=== PATIENT | male | born 1940 | race Caucasian/White ===

== ENCOUNTER → 2016-09-22 | Outpatient (CLI) | payer MEDICARE ==
--- NOTE | 2016-09-22 16:08 | XR ---
EXAMINATION TYPE: XR chest 2V DATE OF EXAM: 09/22/2016 2:52 PM HISTORY: R06.02 sob. REFERENCE: Previous study dated 05/31/2014. FINDINGS: There is scarring in the right midlung. There is apparent elevation of the right hemidiaphr agm. There is some scarring or atelectasis in the left midlung. Pleural spaces are clear. The heart i s not enlarged.. IMPRESSION: NO ACUTE INTRATHORACIC ABNORMALITY.
== END | disposition home or self-care (01) ==
LOC: RADXRMAIN 14:20
PROVIDERS: ATTEND Internal Medicine
DX: R06.02 Shortness of breath (principal)
CPT/HCPCS: 71020

== ENCOUNTER 2018-02-23 16:04 | Emergency (ER) | payer MEDICARE ==
[2018-02-23 16:30] VITALS: RESP 20; TEMP 98.6
[2018-02-23 17:19] LABS: Basophils % (A) 0 %; Eosinophils # (A) 0.2 k/uL (0-0.7); Eosinophils % (A) 3 %; HCT 40.3 % (39.0-53.0); HGB 12.8 gm/dL (13.0-17.5); Lymphocytes # (A) 1.9 k/uL (1.0-4.8); Lymphocytes % (A) 26 %; MCH 27.8 pg (25.0-35.0); MCHC 31.8 g/dL (31.0-37.0); MCV 87.5 fL (80.0-100.0); Mean Platelet Volume 6.7; Monocytes # (A) 0.4 k/uL (0-1.0); Monocytes % (A) 5 %; Neutrophils # (A) 4.7 k/uL (1.3-7.7); Neutrophils % (A) 64 %; Platelet Count 323 k/uL (150-450); RDW 14.5 % (11.5-15.5); WBC 7.4 k/uL (3.8-10.6)
--- NOTE | 2018-02-23 17:22 | ED ---
SOB HPI - General Chief Complaint: Shortness of Breath Stated Complaint: diff breathing Time Seen by Provider: 02/23/18 17:10 Source: patient Mode of arrival: ambulatory Limitations: no limitations - History of Present Illness Initial Comments: 77 years old male has history of COPD he has ongoing shortness of breath but it' s worse for the last few days he has off-and-on chest pain, no chest pain today and now shortness of breath does does get worse with exertion he denies any chest pain with deep breaths. Denies any fever chills nausea vomiting or purulent sputum - Related Data Home Medications Medication Instructions Recorded Confirmed Albuterol Inhaler [Ventolin Hfa 2 puff INHALATION RT-Q6H PRN 02/23/18 02/23/18 Inhaler] Atorvastatin [Lipitor] 10 mg PO DAILY 02/23/18 02/23/18 Ergocalciferol [Vitamin D2] 50,000 unit PO Q7D 02/23/18 02/23/18 Fluticasone/Salmeterol [Advair Hfa 1 puff INHALATION RT-BID 02/23/18 02/23/18 115-21 Mcg Inhaler] Insulin Aspart Protam & Aspart 25 unit SQ BID 02/23/18 02/23/18 [Novolog Mix 70-30 Flexpen Syrn] Levothyroxine Sodium [Synthroid] 100 mcg PO DAILY 02/23/18 02/23/18 Lisinopril [Zestril] 20 mg PO DAILY 02/23/18 02/23/18 Omeprazole 20 mg PO DAILY 02/23/18 02/23/18 Travoprost [Travatan Z 0.004%] 1 drop BOTH EYES HS 02/23/18 02/23/18 Previous Rx's Medication Instructions Recorded Azithromycin [Zithromax Tri-Nathaniel] 500 mg PO DAILY #3 tab 02/23/18 predniSONE 20 mg PO DAILY #5 tab 02/23/18 Allergies Allergy/AdvReac Type Severity Reaction Status Date / Time No Known Allergies Allergy Verified 02/23/18 17:37 Review of Systems ROS Statement: Those systems with pertinent positive or pertinent negative responses have been documented in the HPI. ROS Other: All systems not noted in ROS Statement are negative. Past Medical History Past Medical History: COPD, Diabetes Mellitus, Hyperlipidemia, Hypertension History of Any Multi-Drug Resistant Organisms: None Reported Additional Past Surgical History / Comment(s): neck surgery Past Psychological History: No Psychological Hx Reported Smoking Status: Former smoker Past Alcohol Use History: None Reported Past Drug Use History: None Reported General Exam - General Exam Comments Initial Comments: General: The patient is awake and alert, in no distress, and does not appear acutely ill. Skin: Skin is warm and dry and no rashes or lesions are noted. Eye: Pupils are equal, round and reactive to light, extra-ocular movements are intact; there is normal conjunctiva bilaterally. Ears, nose, mouth and throat: There are moist mucous membranes and no oral lesions. Neck: The neck is supple, there is no tenderness or JVD. Cardiovascular: There is a regular rate and rhythm. No murmur, rub or gallop is appreciated. Respiratory: To auscultation bilateral, some is consistent with a moderate COPD Gastrointestinal: Soft, non-distended, non-tender abdomen without masses or organomegaly noted. There is no rebound or guarding present. Bowel sounds are unremarkable. Back: There is no tenderness to palpation in the midline. There is no obvious deformity. Musculoskeletal: Normal ROM, no tenderness, There is no pedal edema. There is no calf tenderness or swelling. No cords were appreciated. Neurological: CN II-XII intact, Cranial nerves III through XII are intact. There are no obvious motor or sensory deficits. Coordination appears grossly intact. Speech is normal. Psychiatric: Cooperative, appropriate mood & affect, normal judgment. Limitations: no limitations Course Vital Signs 02/23/18 16:26 Temperature 98.6 F Pulse Rate 74 Respiratory 20 Rate Blood Pressure 187/71 O2 Sat by Pulse 98 Oximetry EKG is normal sinus rhythm ventricular rate is 69 UT interval is 194 QRS duration is 96 QT/QTc is 370/396 review of this EKG reveals some T-wave inversion in lead [address] elevation or ST depression noticed in the other leads Upon reassessment noticed chest x-rays normal, troponin, CBC, comp his metabolic panel are fine. He see Dr. Portillo within last few weeks he had EKG done according to the patient he had an echocardiogram done. Considering his COPD he be referred to animal technician and a been gone home with a diagnosis of bronchitis a Z-Nathaniel plus prednisone 20 mg once daily for next [address] Murguia he agrees with my plan Medical Decision Making - Lab Data Result diagrams: 02/23/18 17:07 02/23/18 17:07 Lab Results 02/23/18 02/23/18 02/23/18 Range/Units 17:07 17:07 17:07 WBC 7.4 (3.8-10.6) k/uL RBC 4.60 (4.30-5.90) m/uL Hgb 12.8 L (13.0-17.5) gm/dL Hct 40.3 (39.0-53.0) % MCV 87.5 (80.0-100.0) fL MCH 27.8 (25.0-35.0) pg MCHC 31.8 (31.0-37.0) g/dL RDW 14.5 (11.5-15.5) % Plt Count 323 (150-450) k/uL Neutrophils % 64 % Lymphocytes % 26 % Monocytes % 5 % Eosinophils % 3 % Basophils % 0 % Neutrophils # 4.7 (1.3-7.7) k/uL Lymphocytes # 1.9 (1.0-4.8) k/uL Monocytes # 0.4 (0-1.0) k/uL Eosinophils # 0.2 (0-0.7) k/uL Basophils # 0.0 (0-0.2) k/uL PT (9.0-12.0) sec INR (<1.2) APTT (22.0-30.0) sec Sodium 140 (137-145) mmol/L Potassium 4.9 (3.5-5.1) mmol/L Chloride 107 (98-107) mmol/L Carbon Dioxide 23 (22-30) mmol/L Anion Gap 10 mmol/L BUN 23 H (9-20) mg/dL Creatinine 1.04 (0.66-1.25) mg/dL Est GFR (CKD-EPI)AfAm 81 (>60 ml/min/1.73 sqM) Est GFR (CKD-EPI)NonAf 70 (>60 ml/min/1.73 sqM) Glucose 108 H (74-99) mg/dL Calcium 9.2 (8.4-10.2) mg/dL Total Bilirubin 0.4 (0.2-1.3) mg/dL AST 37 (17-59) U/L ALT 38 (21-72) U/L Alkaline Phosphatase 76 (38-126) U/L Total Creatine Kinase 95 (55-170) U/L CK-MB (CK-2) 1.1 (0.0-2.4) ng/mL CK-MB (CK-2) Rel Index 1.2 Troponin I <0.012 (0.000-0.034) ng/mL Total Protein 7.9 (6.3-8.2) g/dL Albumin 3.9 (3.5-5.0) g/dL 02/23/18 Range/Units 17:07 WBC (3.8-10.6) k/uL RBC (4.30-5.90) m/uL Hgb (13.0-17.5) gm/dL Hct (39.0-53.0) % MCV (80.0-100.0) fL MCH (25.0-35.0) pg MCHC (31.0-37.0) g/dL RDW (11.5-15.5) % Plt Count (150-450) k/uL Neutrophils % % Lymphocytes % % Monocytes % % Eosinophils % % Basophils % % Neutrophils # (1.3-7.7) k/uL Lymphocytes # (1.0-4.8) k/uL Monocytes # (0-1.0) k/uL Eosinophils # (0-0.7) k/uL Basophils # (0-0.2) k/uL PT 10.7 (9.0-12.0) sec INR 1.1 (<1.2) APTT 26.2 (22.0-30.0) sec Sodium (137-145) mmol/L Potassium (3.5-5.1) mmol/L Chloride (98-107) mmol/L Carbon Dioxide (22-30) mmol/L Anion Gap mmol/L BUN (9-20) mg/dL Creatinine (0.66-1.25) mg/dL Est GFR (CKD-EPI)AfAm (>60 ml/min/1.73 sqM) Est GFR (CKD-EPI)NonAf (>60 ml/min/1.73 sqM) Glucose (74-99) mg/dL Calcium (8.4-10.2) mg/dL Total Bilirubin (0.2-1.3) mg/dL AST (17-59) U/L ALT (21-72) U/L Alkaline Phosphatase (38-126) U/L Total Creatine Kinase (55-170) U/L CK-MB (CK-2) (0.0-2.4) ng/mL CK-MB (CK-2) Rel Index Troponin I (0.000-0.034) ng/mL Total Protein (6.3-8.2) g/dL Albumin (3.5-5.0) g/dL Disposition Clinical Impression: Shortness of breath Disposition: HOME SELF-CARE Condition: Good Instructions: Acute Bronchitis (ED) Prescriptions: Azithromycin [Zithromax Tri-Nathaniel] 500 mg PO DAILY #3 tab predniSONE 20 mg PO DAILY #5 tab Is patient prescribed a controlled substance at d/c from ED?: No Referrals: Steve Murguia MD [Primary Care Provider] - 1-2 days Joseph Roberto MD [STAFF PHYSICIAN] - 1-2 days
[2018-02-23 17:27] LABS: INR 1.1 (<1.2); Partial Thromboplastin Time 26.2 sec (22.0-30.0); Prothrombin Time 10.7 sec (9.0-12.0)
[2018-02-23 17:32] LABS: Albumin 3.9 g/dL (3.5-5.0); Calcium 9.2 mg/dL (8.4-10.2); Potassium 4.9 mmol/L (3.5-5.1); Total Bilirubin 0.4 mg/dL (0.2-1.3); Total Protein 7.9 g/dL (6.3-8.2)
[2018-02-23 17:40] LABS: Creatine Kinase 95 U/L (55-170)
[2018-02-23 17:54] LABS: Creatine Kinase MB 1.1 ng/mL (0.0-2.4); Troponin I <0.012 ng/mL (0.000-0.034)
--- NOTE | 2018-02-23 18:05 | XR ---
EXAMINATION TYPE: XR chest 2V DATE OF EXAM: 02/23/2018 COMPARISON: 09/22/2016 HISTORY: Short of breath TECHNIQUE: Frontal and lateral views of the chest are obtained. FINDINGS: There is mild elevated right diaphragm. There is interposition of the hepatic flexure of t he colon. There is no heart failure nor confluent pneumonic infiltrate. Heart size is normal. Bony th orax is intact. IMPRESSION: No active cardiopulmonary disease. No change.
[2018-02-23 20:09] VITALS: BP 160/70; PULSE 77
== END 2018-02-23 19:45 | disposition home or self-care (01) ==
LOC: EC 16:04
DX: R06.02 Shortness of breath (principal); J44.9 Chronic obstructive pulmonary disease, unspecified; E11.9 Type 2 diabetes mellitus without complications; I10 Essential (primary) hypertension; Z79.4 Long term (current) use of insulin; Z79.899 Other long term (current) drug therapy; Z87.891 Personal history of nicotine dependence
CPT/HCPCS: 36415; 71046; 80053; 82550; 82553; 84484; 85025; 85610; 85730; 93005; 99285

== ENCOUNTER → 2018-03-10 | Outpatient (CLI) | payer MEDICARE ==
[2018-03-13 14:16] LABS: Alt. alternata IgE Class CLASS 0; Alternaria alternata IgE <0.35 kU/L (<0.35); Asperg. fumagatus IgE <0.35 kU/L (<0.35); Asperg. fumagatus IgE Class CLASS 0; Bermuda Grass IgE <0.35 kU/L (<0.35); Birch(Com.Silvr) IgE <0.35 kU/L (<0.35); Birch(Com.Silvr) IgE Class CLASS 0; Cat Epith & Dander IgE <0.35 kU/L (<0.35); Cat Epith & Dander IgE Class CLASS 0; Clad herbarum IgE <0.35 kU/L (<0.35); Cottonwood IgE <0.35 kU/L (<0.35); Dermato. Pteronyssinus IgE <0.35 kU/L (<0.35); Dermato. farinae IgE <0.35 kU/L (<0.35); Dermato. farinae IgE Class CLASS 0; Dog Dander IgE <0.35 kU/L (<0.35); Elm IgE <0.35 kU/L (<0.35); Maple (Box Elder) IgE <0.35 kU/L (<0.35); Maple (Box Elder) IgE Class CLASS 0; Mountain Cedar IgE <0.35 kU/L (<0.35); Mountain Cedar IgE Class CLASS 0; Mouse Urine IgE Class CLASS 0; Nettle IgE <0.35 kU/L (<0.35); Nettle IgE Class CLASS 0; Oak IgE <0.35 kU/L (<0.35); Penicillium notatum IgE Class CLASS 0; Rough Marshelder IgE <0.35 kU/L (<0.35); Rough Marshelder IgE Class CLASS 0; Timothy Grass IgE <0.35 kU/L (<0.35); White Ash IgE Class CLASS 0
[2018-03-15 16:23] LABS: Alternaria Alternata IgG 4.3 mcg/mL (< 13.6); Aspergillus fumigatus IgG Not detected (Not detected); Aureobasidium pullulans IgG 6.1 mcg/mL (< 13.6); Cladosporium herbarium IgG 27.7 mcg/mL (< 14.7); Phoma ssp. IgG 9.5 mcg/mL (< 6.6); Saccaharomospora viridis Not detected (Not detected); Saccaharopoly. rectivirgula Not detected (Not detected)
== END ==
LOC: LABWHC1 12:34
PROVIDERS: ATTEND Internal Medicine Sleep Medicine
DX: B44.81 Allergic bronchopulmonary aspergillosis (principal)
CPT/HCPCS: 36415; 82785; 86001; 86003; 86606; 86609

== ENCOUNTER → 2018-03-17 | Outpatient (CLI) | payer MEDICARE ==
--- NOTE | 2018-03-17 16:37 | CT ---
EXAMINATION TYPE: CT chest wo con DATE OF EXAM: 03/17/2018 COMPARISON: NONE HISTORY: SOB, interstitial lung disease per order. CT DLP: 602 mGycm. Automated Exposure Control for Dose Reduction was Utilized. TECHNIQUE: CT scan of the thorax is performed without IV contrast. FINDINGS: LUNGS: There is calcified pleural plaque and pleural thickening anteriorly right mid to lower lung fr om axial images 29 through 38 there are additional noncalcified pleural plaques seen bilaterally most prominent posteriorly there is bibasilar linear scarring and/or atelectasis most prominent just abov e the diaphragms. Elevated right hemidiaphragm is seen. Few scattered micronodules are present. No terry spicious greater than 5 mm parenchymal nodule or mass is present bilaterally. No suspicious focal con solidation is seen. MEDIASTINUM: Lack of IV contrast is noted to limit evaluation for mediastinal and especially hilar ad enopathy. There are no definitive greater than 1 cm hilar or mediastinal lymph nodes. There are promi nent but subcentimeter thoracic lymph nodes. No cardiomegaly or pericardial effusion is seen. Coron papa artery calcification is present which is noted marker for coronary artery disease. There is mild to moderate calcified plaque in the aorta extending into branch vessels OTHER: Small degree of bilateral gynecomastia is identified. There is mild multilevel spurring in the thoracic spine. A few simple appearing cysts are scattered throughout both kidneys. IMPRESSION: Chronic parenchymal and pleural changes. Correlate for prior asbestos exposure. Parenchym al changes most prominent in the bases. No acute pulmonary process.
== END | disposition home or self-care (01) ==
LOC: RADCTMAIN 16:07
PROVIDERS: ATTEND Internal Medicine Sleep Medicine
DX: J98.4 Other disorders of lung (principal); J84.9 Interstitial pulmonary disease, unspecified
CPT/HCPCS: 71250

== ENCOUNTER → 2018-03-30 | Outpatient (CLI) | payer MEDICARE | END | disposition home or self-care (01) | LOC: LABWHC1 12:43 | PROVIDERS: ATTEND Internal Medicine Sleep Medicine | DX: Z01.89 Encounter for other specified special examinations (principal) | CPT/HCPCS: 36415 ==

== ENCOUNTER → 2022-03-15 | Outpatient (CLI) | payer MEDICARE ==
--- NOTE | 2022-03-15 18:55 | US ---
EXAMINATION TYPE: US thyroid st tissue head/neck DATE OF EXAM: 03/15/2022 COMPARISON: NONE CLINICAL HISTORY: 81-year-old male E07.9 DISORDER OF THYROID, UNSPECIFIED. GLAND SIZE: Right Lobe: 4.1 x 2.9 x 2.6 cm Overall Parenchyma: homogenous Left Lobe: 2.5 x 1.3 x x 1.1 cm Overall Parenchyma: homogeneous Isthmus Thickness: 1.2 cm NODULES RIGHT: # of nodules measured on right: 1 1. 2.8 X 2.5 x 1.9 cm, mid, cystic or almost completely cystic, anechoic nodule, which is as wide a s it is tall, with smooth margins, without echogenic foci. Some minimal peripheral mural nodularity i s noted measuring up to 8 mm. No prior LEFT: # of nodules measured on left: 0 ISTHMUS: # of nodules measured in the isthmus: 0 Bilateral neck scanned, no evidence of lymphadenopathy. IMPRESSION: Predominantly cystic nodule measuring 2.8 cm within the right thyroid lobe shows an 8 mm area of inte rnal mural-based nodularity. Consider a 6-12 month follow-up to reassess.
== END | disposition home or self-care (01) ==
LOC: RADUSWWP 14:56
PROVIDERS: ATTEND Internal Medicine Interventional Cardiology
DX: E04.1 Nontoxic single thyroid nodule (principal)
CPT/HCPCS: 76536

== ENCOUNTER → 2023-03-09 | Outpatient (CLI) | payer MEDICARE ==
--- NOTE | 2023-03-10 08:16 | MR ---
EXAMINATION TYPE: MR brain wo/w con DATE OF EXAM: 03/09/2023 COMPARISON: None HISTORY: Memory loss CONTRAST: Performed utilizing 9 mL intravenous Gadavist gadolinium contrast. TECHNIQUE: Multiplanar, multiecho imaging on a 3.0 Anaid magnet is performed through the brain. Stud y is performed within 24 hours of arrival to the hospital. The craniovertebral junction is normal. The pituitary is normal. Diffusion-weighted imaging is performed. No abnormal hyperintensity is present to suggest an acute i ntracranial infarct or acute ischemic change. There are scattered punctate areas of hyperintensity on T2 and Inversion Recovery weighted sequences which are non-specific but can be related to microvascular ischemic changes. Some of these are perpen dicular to the lateral ventricles. This raises the possibility of multiple sclerosis. Differential di agnosis could also include Lyme disease and vasculitis. Ventricles and sulci are prominent for the patient age. Following contrast administration, no abnormal enhancement. IMPRESSION: 1. Chronic appearing periventricular white matter ischemic type changes with age related atrophy.
== END | disposition home or self-care (01) ==
LOC: RADMRIMAIN 20:00
PROVIDERS: ATTEND Internal Medicine
DX: I67.82 Cerebral ischemia (principal); R41.0 Disorientation, unspecified; G31.9 Degenerative disease of nervous system, unspecified
CPT/HCPCS: 70553; A9585

== ENCOUNTER 2024-06-15 02:33 | Inpatient (IN) | payer MEDICARE ==
[2024-06-15] MEDS: SODIUM CHLORIDE 0.9% 1,000 ML IV STA (02:40)
[2024-06-15 02:41] VITALS: TEMP 97.7
[2024-06-15] MEDS: LORazepam 2 MG/ML INJ IV STA ×2 (02:47→04:37)
[2024-06-15 02:48] LABS: Glucose,Whole Blood >600 mg/dL (70-110)
[2024-06-15 02:59] LABS: Basophils % (A) 0 %; Eosinophils % (A) 0 %; HCT 49.2 % (39.0-53.0); HGB 14.9 gm/dL (13.0-17.5); Hypochromasia Moderate; Lymphocytes # (A) 1.3 k/uL (1.0-4.8); Lymphocytes % (A) 9 %; MCH 30.7 pg (25.0-35.0); MCHC 30.2 g/dL (31.0-37.0); MCV 101.5 fL (80.0-100.0); Macrocytosis Slight; Mean Platelet Volume 8.6; Monocytes # (A) 0.8 k/uL (0-1.0); Monocytes % (A) 5 %; Neutrophils # (A) 12.7 k/uL (1.3-7.7); Neutrophils % (A) 85 %; Platelet Count 181 k/uL (150-450); RBC 4.85 m/uL (4.30-5.90); RDW 13.3 % (11.5-15.5); WBC 14.9 k/uL (3.8-10.6)
--- NOTE | 2024-06-15 03:07 | ED ---
Fall HPI - General Chief Complaint: Fall Stated Complaint: Fall Time Seen by Provider: 06/15/24 02:36 Source: patient, EMS - History of Present Illness Initial Comments: Bill is an 83-year-old gentleman with a history of dementia who is brought to the ER by EMS after apparent falls at home. History was initially obtained from EMS and then further history provided by the patient's grandson's girlfriend who lives at the home with the patient. Patient lives in the home and his grandson is in the as well as his girlfriend Ana and their children live in an upstairs apartment, Ana sees the patient regularly and brings in his meals. She states that he seemed to be doing okay yesterday she went down to bring him dinner around 5 PM and he had a fall in the kitchen she thought perhaps his sugar was getting low so she fed him some cookies he then ate dinner and went to bed. Around 630 he woke up and was given off balance and feeling unwell. He apparently had another fall at some time during the night it was unwitnessed and EMS was called due to the patient's symptoms. Upon EMS arrival patient had weakness in the left arm which Ana reports is chronic. Patient was pleasantly confused and offered no meaningful history. Per Ana the patient is usually alert and oriented to person place and time. - Related Data Home Medications Medication Instructions Recorded Confirmed Albuterol Inhaler [Ventolin Hfa 2 puff INHALATION RT-Q6H PRN 02/23/18 02/23/18 Inhaler] Atorvastatin [Lipitor] 10 mg PO DAILY 02/23/18 02/23/18 Ergocalciferol [Vitamin D2] 50,000 unit PO Q7D 02/23/18 02/23/18 Fluticasone Propion/Salmeterol 1 puff INHALATION RT-BID 02/23/18 02/23/18 [Advair Hfa 115-21 Mcg Inhaler] Insulin Aspart Prot/Insuln Asp 25 unit SQ BID 02/23/18 02/23/18 [Novolog Mix 70-30 Flexpen Syrn] Levothyroxine Sodium [Synthroid] 100 mcg PO DAILY 02/23/18 02/23/18 Omeprazole 20 mg PO DAILY 02/23/18 02/23/18 Travoprost [Travatan Z 0.004%] 1 drop BOTH EYES HS 02/23/18 02/23/18 lisinopriL [Zestril] 20 mg PO DAILY 02/23/18 02/23/18 Previous Rx's Medication Instructions Recorded Azithromycin [Zithromax Tri-Nathaniel] 500 mg PO DAILY #3 tab 02/23/18 predniSONE [Deltasone] 20 mg PO DAILY #5 tab 02/23/18 Allergies Allergy/AdvReac Type Severity Reaction Status Date / Time No Known Allergies Allergy Verified 02/23/18 17:37 Review of Systems ROS Statement: Those systems with pertinent positive or pertinent negative responses have been documented in the HPI. ROS Other: All systems not noted in ROS Statement are negative. Past Medical History Past Medical History: COPD, Diabetes Mellitus, Hyperlipidemia, Hypertension History of Any Multi-Drug Resistant Organisms: None Reported Additional Past Surgical History / Comment(s): neck surgery Past Psychological History: No Psychological Hx Reported Past Alcohol Use History: None Reported Past Drug Use History: None Reported General Exam - General Exam Comments Initial Comments: Physical Exam GENERAL: Chronically ill-appearing, HENT: Hematoma lateral to the left eye, superficial abrasion over the cheek EYES: PERRL, EOMI PULMONARY: Unlabored respirations. CARDIOVASCULAR: RRR Warm and well perfused extremities ABDOMEN: Non-distended SKIN: Abrasion to left arm : Deferred NEUROLOGIC: Alert and oriented to person MUSCULOSKELETAL: diffuse atrophy left arm contracted PSYCHIATRIC: Unable to assess Course Vital Signs 06/15/24 06/15/24 06/15/24 02:36 03:41 04:15 Temperature 97.7 F Pulse Rate 125 H 112 H 108 H Respiratory 22 18 Rate Blood Pressure 153/117 94/77 O2 Sat by Pulse 96 96 Oximetry 06/15/24 06/15/24 06/15/24 04:32 04:35 06:12 Temperature Pulse Rate 125 H 125 H 122 H Respiratory 18 18 Rate Blood Pressure 147/92 127/113 O2 Sat by Pulse 96 97 Oximetry 06/15/24 06/15/24 06/15/24 07:35 09:35 10:11 Temperature Pulse Rate 120 H 121 H 112 H Respiratory 22 18 20 Rate Blood Pressure 142/76 114/94 92/71 O2 Sat by Pulse 94 L 94 L 95 Oximetry 06/15/24 10:14 Temperature Pulse Rate 110 H Respiratory 20 Rate Blood Pressure 120/64 O2 Sat by Pulse 100 Oximetry Medical Decision Making - Medical Decision Making Was pt. sent in by a medical professional or institution (VANIA Lopes, DISABILITY REPRESENTATIVE, urgent care, hospital, or [place] health care facility...) When possible be specific @ -No Did you speak to anyone other than the patient for history (EMS, parent, family, police, friend...)? What history was obtained from this source @ -EMS, caregiver from the home Did you review nursing and triage notes (agree or disagree)? Why? @ -I reviewed and agree with nursing and triage notes Were old charts reviewed (outside hosp., previous admission, EMS record, old EKG, old radiological studies, urgent care reports/EKG's, [place] health care facility records)? Report findings @ -No old charts were reviewed Differential Diagnosis (chest pain, altered mental status, abdominal pain women, abdominal pain men, vaginal bleeding, weakness, fever, dyspnea, syncope, headache, dizziness, GI bleed, back pain, seizure, CVA, palpatations, mental health)? @ -Differential Altered Mental Status: Hypoglycemia, DKA, hypercapnia, ETOH, overdose, CO poisoning, trauma, myxedema coma, HTN encephalopathy, infection, encephalitis, psychosis, intercranial hemorrhage, hepatic encephalopathy, meningitis, CVA, this is not meant to be an all-inclusive list EKG interpreted by me (3pts min.). @ -As above X-rays interpreted by me (1pt min.). @ -None done CT interpreted by me (1pt min.). @ -No mass, no midline shift, edema concerning for acute infarction in the right U/S interpreted by me (1pt. min.). @ -None done What testing was considered but not performed or refused? (CT, X-rays, U/S, labs)? Why? @ -MRI can be obtained inpatient What meds were considered but not given or refused? Why? @ -tPA contraindicated due to unknown onset, Did you discuss the management of the patient with other professionals (professionals i.e. VANIA Lopes, DISABILITY REPRESENTATIVE, lab, RT, psych nurse, director social, sales engineer account manager, teacher, public records officer, director of casework services)? Give summary @ -Discussed with stroke doctor Dr. Suazo recommended medical management Was smoking cessation discussed for >3mins.? @ -No Was critical care preformed (if so, how long)? @ -Yes, 30 minutes Were there social determinants of health that impacted care today? How? (Homelessness, low income, unemployed, alcoholism, drug addiction, transportation, low edu. Level, literacy, decrease access to med. care, assisted, rehab)? @ -No Was there de-escalation of care discussed even if they declined (Discuss DNR or withdrawal of care, Hospice)? DNR status @ -No family available for conversation What co-morbidities impacted this encounter? (DM, HTN, Smoking, COPD, CAD, Cancer, CVA, ARF, Chemo, Hep., AIDS, mental health diagnosis, sleep apnea, morbid obesity)? @ -Dementia Was patient admitted / discharged? Hospital course, mention meds given and route, prescriptions, significant lab abnormalities, going to OR and other pertinent info. @ -Admit Patient was seen and evaluated patient is confused but awake and talking, left arm is contracted there is abrasions to the left side of his face he seems to have some left-sided hemineglect, CT scan and trauma workup were initiated CT is concerning for acute ischemia to the right side. I suspect he is having right MCA stroke. I attempted to contact the patient's son who we were advised would be coming to the hospital there was no answer on his phone. I contacted the patient's caregiver who is his grandsons girlfriend who is known him for 6 years. My concerns for stroke were discussed with the interventional stroke doctor, Dr Bliss at 5:23am, he recommended medical management. CTA was obtained and confirms right MCA occlusion. Patient was evaluated by neurology who recommend transfer to higher level of care. Patient PCP Dr Murguia agrees with plan for transfer Multiple attempts to contact patient's son, no answer, no response - Again care was discussed with caregiver, Ana who will attempt to contact son for update. After discussion with stonemason supervisor neurologist, they recommend transfer to higher level of care Patient care discussed with stroke doctor who recommends transfer to [place] Undiagnosed new problem with uncertain prognosis? @ -Yes - acute right MCA stroke Drug Therapy requiring intensive monitoring for toxicity (Heparin, Nitro, Insulin, Cardizem)? @ Yes - Insulin Were any procedures done? @ -No Diagnosis/symptom? @ -Right MCA stroke Acute, or Chronic, or Acute on Chronic? @ -Acute Uncomplicated (without systemic symptoms) or Complicated (systemic symptoms)? @ -Default Side effects of treatment? @ -No Exacerbation, Progression, or Severe Exacerbation? @ -No Poses a threat to life or bodily function? How? (Chest pain, USA, CT, pneumonia, PE, COPD, DKA, ARF, appy, cholecystitis, CVA, Diverticulitis, Homicidal, Suicidal, threat to staff... and all critical care pts) @ Potentially - Lab Data Result diagrams: 06/15/24 02:50 06/15/24 07:30 Lab Results 06/15/24 06/15/24 06/15/24 Range/Units 02:47 02:50 02:50 WBC 14.9 H (3.8-10.6) k/uL RBC 4.85 (4.30-5.90) m/uL Hgb 14.9 (13.0-17.5) gm/dL Hct 49.2 (39.0-53.0) % MCV 101.5 H (80.0-100.0) fL MCH 30.7 (25.0-35.0) pg MCHC 30.2 L (31.0-37.0) g/dL RDW 13.3 (11.5-15.5) % Plt Count 181 (150-450) k/uL MPV 8.6 Neutrophils % 85 % Lymphocytes % 9 % Monocytes % 5 % Eosinophils % 0 % Basophils % 0 % Neutrophils # 12.7 H (1.3-7.7) k/uL Lymphocytes # 1.3 (1.0-4.8) k/uL Monocytes # 0.8 (0-1.0) k/uL Eosinophils # 0.0 (0-0.7) k/uL Basophils # 0.0 (0-0.2) k/uL Hypochromasia Moderate Macrocytosis Slight PT 12.9 H (10.0-12.5) sec INR 1.2 H (<1.2) APTT 25.9 (22.0-30.0) sec Sodium (137-145) mmol/L Potassium (3.5-5.1) mmol/L Chloride (98-107) mmol/L Carbon Dioxide (22-30) mmol/L Anion Gap mmol/L BUN (9-20) mg/dL Creatinine (0.66-1.25) mg/dL Est GFR (CKD-EPI)AfAm (>60 ml/min/1.73 sqM) Est GFR (CKD-EPI)NonAf (>60 ml/min/1.73 sqM) Glucose (74-99) mg/dL POC Glucose (mg/dL) >600 H* (70-110) mg/dL POC Glu Business Development Professional HUGO Arora Lactic Ac Sepsis Rflx Plasma Lactic Acid Jose E (0.7-2.0) mmol/L Calcium (8.4-10.2) mg/dL Total Bilirubin (0.2-1.3) mg/dL AST (17-59) U/L ALT (4-49) U/L Alkaline Phosphatase (38-126) U/L Troponin I (0.000-0.034) ng/mL Total Protein (6.3-8.2) g/dL Albumin (3.5-5.0) g/dL Serum Alcohol mg/dL Blood Type Blood Type Confirm Blood Type Recheck Bld Type Recheck Status Antibody Screen Spec Expiration Date 06/15/24 06/15/24 06/15/24 Range/Units 02:50 02:50 02:50 WBC (3.8-10.6) k/uL RBC (4.30-5.90) m/uL Hgb (13.0-17.5) gm/dL Hct (39.0-53.0) % MCV (80.0-100.0) fL MCH (25.0-35.0) pg MCHC (31.0-37.0) g/dL RDW (11.5-15.5) % Plt Count (150-450) k/uL MPV Neutrophils % % Lymphocytes % % Monocytes % % Eosinophils % % Basophils % % Neutrophils # (1.3-7.7) k/uL Lymphocytes # (1.0-4.8) k/uL Monocytes # (0-1.0) k/uL Eosinophils # (0-0.7) k/uL Basophils # (0-0.2) k/uL Hypochromasia Macrocytosis PT (10.0-12.5) sec INR (<1.2) APTT (22.0-30.0) sec Sodium 123 L (137-145) mmol/L Potassium 6.9 H* (3.5-5.1) mmol/L Chloride 91 L (98-107) mmol/L Carbon Dioxide 14 L (22-30) mmol/L Anion Gap 18 mmol/L BUN 94 H (9-20) mg/dL Creatinine 1.46 H (0.66-1.25) mg/dL Est GFR (CKD-EPI)AfAm 51 (>60 ml/min/1.73 sqM) Est GFR (CKD-EPI)NonAf 45 (>60 ml/min/1.73 sqM) Glucose 1051 H* (74-99) mg/dL POC Glucose (mg/dL) (70-110) mg/dL POC Glu Business Development Professional ID Lactic Ac Sepsis Rflx Plasma Lactic Acid Jose E 8.8 H* (0.7-2.0) mmol/L Calcium 9.1 (8.4-10.2) mg/dL Total Bilirubin 0.7 (0.2-1.3) mg/dL AST 47 (17-59) U/L ALT 49 (4-49) U/L Alkaline Phosphatase 175 H (38-126) U/L Troponin I 0.018 (0.000-0.034) ng/mL Total Protein 7.8 (6.3-8.2) g/dL Albumin 4.2 (3.5-5.0) g/dL Serum Alcohol <10 mg/dL Blood Type Blood Type Confirm Blood Type Recheck Bld Type Recheck Status Antibody Screen Spec Expiration Date 06/15/24 06/15/24 06/15/24 Range/Units 02:52 02:57 03:27 WBC (3.8-10.6) k/uL RBC (4.30-5.90) m/uL Hgb (13.0-17.5) gm/dL Hct (39.0-53.0) % MCV (80.0-100.0) fL MCH (25.0-35.0) pg MCHC (31.0-37.0) g/dL RDW (11.5-15.5) % Plt Count (150-450) k/uL MPV Neutrophils % % Lymphocytes % % Monocytes % % Eosinophils % % Basophils % % Neutrophils # (1.3-7.7) k/uL Lymphocytes # (1.0-4.8) k/uL Monocytes # (0-1.0) k/uL Eosinophils # (0-0.7) k/uL Basophils # (0-0.2) k/uL Hypochromasia Macrocytosis PT (10.0-12.5) sec INR (<1.2) APTT (22.0-30.0) sec Sodium (137-145) mmol/L Potassium (3.5-5.1) mmol/L Chloride (98-107) mmol/L Carbon Dioxide (22-30) mmol/L Anion Gap mmol/L BUN (9-20) mg/dL Creatinine (0.66-1.25) mg/dL Est GFR (CKD-EPI)AfAm (>60 ml/min/1.73 sqM) Est GFR (CKD-EPI)NonAf (>60 ml/min/1.73 sqM) Glucose (74-99) mg/dL POC Glucose (mg/dL) (70-110) mg/dL POC Glu Business Development Professional ID Lactic Ac Sepsis Rflx Y Plasma Lactic Acid Jose E (0.7-2.0) mmol/L Calcium (8.4-10.2) mg/dL Total Bilirubin (0.2-1.3) mg/dL AST (17-59) U/L ALT (4-49) U/L Alkaline Phosphatase (38-126) U/L Troponin I (0.000-0.034) ng/mL Total Protein (6.3-8.2) g/dL Albumin (3.5-5.0) g/dL Serum Alcohol mg/dL Blood Type B Positive Blood Type Confirm B Positive Blood Type Recheck No Previous Record Bld Type Recheck Status CABO Indicated Antibody Screen NEGATIVE Spec Expiration Date 06/18/20242351 - EKG Data -: EKG Interpreted by Me EKG Comments: EKG obtained due to tachycardia EKG obtained at 303 rate is 112 rhythm sinus tach normal intervals CA 202, QRS [address] QTc [address] elevations or depressions are peaked T waves no evidence of acute ischemia or infarction. Critical Care Time Total Critical Care Time: 45 Disposition Clinical Impression: Acute right MCA stroke Disposition: OTHER INSTITUTION NOT DEFINED Condition: Serious
[2024-06-15 03:08] LABS: INR 1.2 (<1.2); Partial Thromboplastin Time 25.9 sec (22.0-30.0); Prothrombin Time 12.9 sec (10.0-12.5)
[2024-06-15 03:11] LABS: AST 47 U/L (17-59); African American GFR (CKD) 51 (>60 ml/min/1.73 sqM); Albumin 4.2 g/dL (3.5-5.0); Alcohol <10 mg/dL; Alkaline Phosphatase 175 U/L (38-126); Anion Gap 18 mmol/L; Blood Urea Nitrogen 94 mg/dL (9-20); Calcium 9.1 mg/dL (8.4-10.2); Carbon Dioxide 14 mmol/L (22-30); Chloride 91 mmol/L (98-107); Non-African American GFR(CKD) 45 (>60 ml/min/1.73 sqM); Sodium 123 mmol/L (137-145); Total Bilirubin 0.7 mg/dL (0.2-1.3); Total Protein 7.8 g/dL (6.3-8.2)
[2024-06-15 03:17] LABS: ALT 49 U/L (4-49)
[2024-06-15 03:29] LABS: Glucose 1051 mg/dL (74-99); Potassium 6.9 mmol/L (3.5-5.1)
[2024-06-15] MEDS: SODIUM ZIRCONIUM CYCLOSILICATE 10 GM PACKET PO ONE (03:33)
[2024-06-15] MEDS: SODIUM BICARB 8.4% 50 ML SYR (1 MEQ/ML) IV ONE (03:40)
[2024-06-15] MEDS: CALCIUM GLUCONATE IN NACL 1 GM in SALINE 1 100ML.BAG IVPB ONE (03:41)
[2024-06-15] MEDS: INSULIN REGULAR 100 UNIT/ML VIAL (IV) IV ONE (03:44)
[2024-06-15] MEDS: ALBUTEROL NEB (CONC) 2.5 MG/0.5 ML INHALATION ONE (04:09)
--- NOTE | 2024-06-15 04:22 | CT ---
EXAM: CT Head Without Intravenous Contrast CLINICAL HISTORY: ITS.REASON CT Reason: trauma altered TECHNIQUE: Axial computed tomography images of the head/brain without intravenous contrast. CTDI is 45.2 mGy and DLP is 1126 mGy-cm. This CT exam was performed using one or more of the following dose reduction techniques: automated exposure control, adjustment of the mA and/or kV according to patient size, and/or use of iterative reconstruction technique. COMPARISON: No relevant prior studies available. FINDINGS: Brain: Confluent hypodense changes are seen within the periventricular and deep white matter. Diffuse hypodense changes are seen within the cortical and white matter of the right parietal and temporal lobe. No hemorrhage. Ventricles: Unremarkable. No ventriculomegaly. Bones/joints: Unremarkable. No acute fracture. Soft tissues: Unremarkable. Sinuses: Unremarkable as visualized. No acute sinusitis. Mastoid air cells: Unremarkable as visualized. No mastoid effusion. IMPRESSION: 1. Findings highly concerning for ischemic injury to the right temporal and parietal lobe. 2. No significant midline shift. No evidence of intracranial hemorrhage. EXAM: CT Cervical Spine Without Intravenous Contrast CLINICAL HISTORY: ITS.REASON CT Reason: trauma altered TECHNIQUE: Axial computed tomography images of the cervical spine without intravenous contrast. CTDI is 19.4 mGy and DLP is 574 mGy-cm. This CT exam was performed using one or more of the following dose reduction techniques: automated exposure control, adjustment of the mA and/or kV according to patient size, and/or use of iterative reconstruction technique. COMPARISON: No relevant prior studies available. FINDINGS: Vertebrae: Mild diffuse endplate and degenerative uncovertebral hypertrophy. No acute fracture. Discs/spinal canal/neural foramina: Intervertebral disc space narrowing is seen at C3-4 and the 6 7. Soft tissues: Unremarkable. IMPRESSION: Multilevel degenerative change. No acute findings. No evidence of fracture. <MYCVCSECTION> Communications: 06/15/24 04:32 Call Doctor Regarding Stroke, called Dr. Cano on 06/15 04:32 (-05:00)
--- NOTE | 2024-06-15 04:39 | XR ---
EXAM: XR Pelvis, 1 or 2 Views CLINICAL HISTORY: ITS.REASON XR Reason: Trauma TECHNIQUE: Frontal view of the pelvis. COMPARISON: No relevant prior studies available. FINDINGS: Bones/joints: Degenerative changes are seen within the spine and hips. No acute fracture. No dislocation. Soft tissues: Unremarkable. IMPRESSION: No acute findings in the pelvis.
--- NOTE | 2024-06-15 04:40 | XR ---
EXAM: XR Chest, 1 View CLINICAL HISTORY: ITS.REASON XR Reason: trauma TECHNIQUE: Frontal view of the chest. COMPARISON: X-ray dated 02/23/2018 FINDINGS: Lungs: Unremarkable. No consolidation. Elevation of the right hemidiaphragm. Pleural space: Unremarkable. No pneumothorax. Heart: Unremarkable. No cardiomegaly. Mediastinum: Unremarkable. Normal mediastinal contour. Bones/joints: Degenerative changes are seen in the spine and shoulders. No acute fracture. Vasculature: Calcifications overlie the aorta. IMPRESSION: No acute findings in the chest.
[2024-06-15] MEDS ORDERED: DEXTROSE 50% SYRINGE 50 ML IVP PRN ×2 (06:11)
[2024-06-15] MEDS ORDERED: NALOXONE 0.4 MG/ML 1 ML VIAL IV PRN (06:16)
--- NOTE | 2024-06-15 06:57 | CT ---
EXAM: CT Angiography Head and Neck With Intravenous Contrast CLINICAL HISTORY: ITS.REASON CT Reason: Stroke on CT TECHNIQUE: [place] [facility] [place]/head and neck CT angiography protocol performed with intravenous contrast. CTDI is 11.35 mGy and DLP is 215 mGy-cm. This CT exam was performed using one or more of the following dose reduction techniques: automated exposure control, adjustment of the mA and/or kV according to patient size, and/or use of iterative reconstruction technique. MIP reconstructed images were created and reviewed. COMPARISON: None. FINDINGS: HEAD: Right anterior cerebral artery: Unremarkable. No occlusion or significant stenosis. Anterior communicating artery is present. No aneurysm. Right middle cerebral artery: Abrupt cutoff of the right middle cerebral artery inferior branch. Consider interventional consultation. No occlusion or significant stenosis. No aneurysm. Right posterior cerebral artery: Unremarkable. No occlusion or significant stenosis. No aneurysm. Right intracranial internal carotid artery: Unremarkable. No significant stenosis. No dissection or occlusion. Right intracranial vertebral artery: Unremarkable. No significant stenosis. No dissection or occlusion. Left anterior cerebral artery: Unremarkable. No occlusion or significant stenosis. No aneurysm. Left middle cerebral artery: Unremarkable. No occlusion or significant stenosis. No aneurysm. Left posterior cerebral artery: Unremarkable. No occlusion or significant stenosis. No aneurysm. Left intracranial internal carotid artery: Unremarkable. No significant stenosis. No dissection or occlusion. Left intracranial vertebral artery: Unremarkable. No significant stenosis. No dissection or occlusion. Basilar artery: Unremarkable. No occlusion or significant stenosis. No aneurysm. Other vasculature: Left posterior containing artery. NECK: Right common carotid artery: Unremarkable. No significant stenosis. No dissection or occlusion. Right extracranial internal carotid artery: Mild (42%) stenosis of the proximal right internal carotid artery caused by atherosclerotic plaque and calcifications. No dissection or occlusion. Right external carotid artery: Unremarkable. No occlusion. Right extracranial vertebral artery: Dominant right vertebral artery. No significant stenosis. No dissection or occlusion. Left common carotid artery: Unremarkable. No significant stenosis. No dissection or occlusion. Left extracranial internal carotid artery: Unremarkable. No significant stenosis. No dissection or occlusion. Left external carotid artery: Unremarkable. No occlusion. Left extracranial vertebral artery: Unremarkable. No significant stenosis. No dissection or occlusion. Lung apices: Unremarkable as visualized. HEAD and NECK: Bones/joints: Degenerative changes in the spine. No discrete lytic or blastic abnormalities. Soft tissues: Unremarkable. Other findings: Comparison made to CT head without contrast June 15, 2024. CAROTID STENOSIS REFERENCE USING NASCET CRITERIA: % ICA stenosis = (1 - narrowest ICA diameter/diameter of distal cervical ICA) x 100. Mild - <50% stenosis. Moderate - 50-69% stenosis. Severe - 70-94% stenosis. Near occlusion - 95-99% stenosis. Occluded - 100% stenosis. IMPRESSION: 1. Abrupt cutoff of the right middle cerebral artery inferior branch. Consider interventional consultation. 2. Mild (42%) stenosis of the proximal right internal carotid artery caused by atherosclerotic plaque and calcifications. 3. Otherwise, no areas of flow-limiting stenosis within the head or neck. 4. No evidence of aneurysm or dissection. 5. Right MCA territory infarction best seen on prior CT head without contrast. 6. Consider MRI. <MYCVCSECTION> Communications: 06/15/24 06:57 Call Doctor Regarding Above results, called Dr. Lizarraga on 06/15 06:56 (-05:00)
[2024-06-15] MEDS: INSULIN REGULAR 100 UNIT in SODIUM CHLORIDE 0.9% 100 ML IV SCH (06:59)
[2024-06-15] MEDS: SODIUM CHLORIDE 0.9% 1,000 ML IV SCH (07:03)
[2024-06-15 07:09] LABS: Glucose,Whole Blood >600 mg/dL (70-110)
[2024-06-15 08:01] LABS: African American GFR (CKD) 53 (>60 ml/min/1.73 sqM); Anion Gap 15 mmol/L; Carbon Dioxide 19 mmol/L (22-30); Chloride 95 mmol/L (98-107); Non-African American GFR(CKD) 46 (>60 ml/min/1.73 sqM); Potassium 5.7 mmol/L (3.5-5.1); Sodium 129 mmol/L (137-145)
--- NOTE | 2024-06-15 08:09 | P.CNNES ---
History of Present Illness Consult date: 06/15/24 Reason for Consult: Recent fall with CT angiogram of head showing cutoff of right middle cerebr Chief complaint: Patient is nonverbal at this time. History of Present Illness: Mr. Salter is an 83-year-old male of unknown handedness with a medical history of COPD, diabetes, hypertension, hyperlipidemia. The patient is on a baby aspirin as well as Lipitor 10 mg at home. Patient was seen in [facility] emergency room on June 15, 2024 at approximately 3 AM when he came in status post fall. His relative found him at approximately 5 PM yesterday. He was noted to have altered mental status and a CT of the head as well as cervical spine reveals evolving right temporal and parietal infarct with mild hypoden sity, and a CT angiogram reveals an abrupt cut off of the right middle cerebral artery M2 inferior branch. Interventional radiology was called and did not consider the patient to be an interventional candidate secondary to unknown last known normal time as well as distal middle cerebral artery occlusion. However his granddaughter was spoken to and she states that he appeared normal at approximately 5 PM yesterday prior to the acute change. His carotids appear clear on the CT angiogram which would indicate possible embolic infarct with occlusion of the inferior right MCA. Neurology's been consulted for further management recommendations. Review of Systems ROS unobtainable: due to mental status (Patient was conscious but could not answer verbally at this time. He only noted moans.) Past Medical History Past Medical History: COPD, Diabetes Mellitus, Hyperlipidemia, Hypertension History of Any Multi-Drug Resistant Organisms: None Reported Additional Past Surgical History / Comment(s): neck surgery Past Psychological History: No Psychological Hx Reported Past Alcohol Use History: None Reported Past Drug Use History: None Reported Medications and Allergies Home Medications Medication Instructions Recorded Confirmed Type Albuterol Inhaler [Ventolin Hfa 2 puff INHALATION RT-Q6H PRN 02/23/18 02/23/18 History Inhaler] Atorvastatin [Lipitor] 10 mg PO DAILY 02/23/18 02/23/18 History Azithromycin [Zithromax Tri-Nathaniel] 500 mg PO DAILY #3 tab 02/23/18 Rx Ergocalciferol [Vitamin D2] 50,000 unit PO Q7D 02/23/18 02/23/18 History Fluticasone Propion/Salmeterol 1 puff INHALATION RT-BID 02/23/18 02/23/18 History [Advair Hfa 115-21 Mcg Inhaler] Insulin Aspart Prot/Insuln Asp 25 unit SQ BID 02/23/18 02/23/18 History [Novolog Mix 70-30 Flexpen Syrn] Levothyroxine Sodium [Synthroid] 100 mcg PO DAILY 02/23/18 02/23/18 History Omeprazole 20 mg PO DAILY 02/23/18 02/23/18 History Travoprost [Travatan Z 0.004%] 1 drop BOTH EYES HS 02/23/18 02/23/18 History lisinopriL [Zestril] 20 mg PO DAILY 02/23/18 02/23/18 History predniSONE [Deltasone] 20 mg PO DAILY #5 tab 02/23/18 Rx Allergies Allergy/AdvReac Type Severity Reaction Status Date / Time No Known Allergies Allergy Verified 02/23/18 17:37 Physical Examination - Vital Signs Vital Signs: Vital Signs Temp Pulse Resp BP Pulse Ox 06/15/24 07:35 120 H 22 142/76 94 L 06/15/24 06:12 122 H 18 127/113 97 06/15/24 04:35 125 H 18 147/92 96 06/15/24 04:32 125 H 06/15/24 04:15 108 H 06/15/24 03:41 112 H 18 94/77 96 06/15/24 02:36 97.7 F 125 H 22 153/117 96 Intake and Output 06/14/24 06/15/24 06/15/24 22:59 06:59 14:59 Other: Weight 68.039 kg - Constitutional General appearance: thin - EENT EENT: PERRL - Respiratory Respiratory: lungs clear, normal breath sounds, respiratory distress - Cardiovascular Cardiovascular: regular rate, no murmurs - Gastrointestinal Gastrointestinal: normoactive bowel sounds, non-tender - Integumentary Integumentary: normal - Neurologic Cranial nerve examination: PERRL, other (The patient exhibited a mild left-sided facial droop with nasolabial fold flattening. He had a right gaze which appeared constant and would not blink to threat on either side. He was nonverbal at this time.) Speech examination: other (Patient was nonverbal likely secondary to his acute stroke. He did not appear to follow commands.) Detailed motor examination: other (Patient was able to withdraw with his right greater than left upper extremity, but I could not get him to raise either extremity. Both legs fell back to the bed immediately when raised.) Detailed sensory examination: other (Patient withdrew his left arm to distal stimulation less than his right which may indicate a component of sensory abnormality as well as weakness. He did not appear to grimace or cry out with left arm stimulation as well as with the right arm stimulation) Reflex and gait examination: other (Flexes were trace bilaterally with plantar responses equivocal bilaterally.) Results Pertinent studies include CT of the head as well as cervical spine showing evolving infarct in the right temporal as well as parietal area without evidence of intracranial hemorrhage. Cervical spine revealed minimal degenerative joint disease. CT angiogram of the head and neck revealed an abrupt cut off of the right middle cerebral artery inferior branch. - Laboratory Findings CBC and BMP: 06/15/24 02:50 06/15/24 02:50 Abnormal Lab Findings: Abnormal Labs 06/15/24 06/15/24 06/15/24 02:47 02:50 02:50 WBC 14.9 H MCV 101.5 H MCHC 30.2 L Neutrophils # 12.7 H PT 12.9 H INR 1.2 H Sodium Potassium Chloride Carbon Dioxide BUN Creatinine Glucose POC Glucose (mg/dL) >600 H* Plasma Lactic Acid Jose E Alkaline Phosphatase 06/15/24 06/15/24 06/15/24 02:50 02:50 06:55 WBC MCV MCHC Neutrophils # PT INR Sodium 123 L Potassium 6.9 H* Chloride 91 L Carbon Dioxide 14 L BUN 94 H Creatinine 1.46 H Glucose 1051 H* POC Glucose (mg/dL) Plasma Lactic Acid Jose E 8.8 H* 4.8 H* Alkaline Phosphatase 175 H 06/15/24 07:06 WBC MCV MCHC Neutrophils # PT INR Sodium Potassium Chloride Carbon Dioxide BUN Creatinine Glucose POC Glucose (mg/dL) >600 H* Plasma Lactic Acid Jose E Alkaline Phosphatase Assessment and Plan Assessment: Mr. Salter is an 83-year-old male with history of COPD, diabetes, hypertension, hyperlipidemia. He had a fall last night likely secondary to his acute right middle cerebral artery infarct. He already has developing hypodensity on CT scan with abrupt cut off in the right middle cerebral artery inferior branch. His NIH stroke scale is approximately 27. Interventional radiology has already been consulted and is not deemed the patient to be an interventional candidate at this time. He only uses aspirin 81 mg p.o. daily as well as Lipitor 10 mg at home and does not have a diagnosis of atrial fibrillation though his stroke is presumed to be possibly embolic in nature. Plan: 1. I have suggested to the emergency room team that they consider possible transfer for higher level of care as the patient has a severe deficit secondary to ischemic infarct. His apparent last known normal time was less than 24 hours; however, he has evidence of developing infarct on CT scan and is likely not a good interventional candidate. 2. The emergency room has thus far had no success in speaking to the patient's son who saw him initially. I would recommend possible transfer versus consideration of possible comfort care due to the patient's multiple medical c omorbidities based on the son's preference after thorough conversation regarding his diagnosis. 3. The patient may benefit from serial CT scans to look for any evidence of increased cerebral edema or herniation. 4. Unfortunately, neurology is not available over this weekend. Dr. Del Duncan will continue to follow the patient if he remains in house as of June 18. It is again for this reason that I recommend consideration of transfer for higher level of care, but again would defer to the sons preference regarding transfer. Thank you for this consult. Time with Patient: Less than 30
[2024-06-15 08:15] LABS: Glucose 868 mg/dL (74-99)
[2024-06-15 08:27] LABS: Glucose,Whole Blood >600 mg/dL (70-110)
--- NOTE | 2024-06-15 08:49 | P.CNPUL ---
History of Present Illness Consult date: 06/15/24 Requesting physician: Pita Lizarraga Reason for consult: other (ICU management) Chief complaint: Falls History of present illness: Patient an 83-year-old male with past medical history significant for COPD, hypertension, hyperlipidemia, diabetes mellitus, hypothyroidism, among other things. Brought into the ER by EMS earlier this morning, with frequent falls and altered mental status, no family present. I did speak to the ER provider. Apparently, a relative brought him food around 5 pm yesterday, and noted to have multiple falls and was confused. Unclear when his symptoms actually developed. Patient did not present to the ER untill early this morning at 0233. Initial workup including a CT of the head and C-spine demonstrating confluent hypodense changes seen within the periventricular and deep white matter. Diffuse hypodense changes seen within the cortical and white matter of the right parietal and temporal lobe. No evidence of hemorrhage or midline shift. Brain CT angio showing abrupt cut off of the right middle cerebral artery inferior branch, as well as, mild stenosis of the proximal right ICA. No evidence of aneurysm or dissection. Neuro-interventionalists was contacted by ER provider, and he was determined not to be a candidate for surgical intervention. Patient was also noted to be severely hyperglycemic on arrival, likely component of HHS. He has been started on insulin infusion per protocol. His potassium was critical at 6.9. He has been treated with 10 units of regular insulin, 1 amp bicarb, 1 g calcium gluconate, and 10 g of Lokelma. CBC: WBC count 14.9, hemoglobin 14.9, hematocrit 49.2, platelets 181. CMP: Sodium 123, potassium 6.9, chloride 91, serum bicarb 14, BUN 94, creatinine 1.46, glucose 1051. Lactic 8.8. LFTs unremarkable. Troponin 0.018. Serum alcohol less than 10. Acetone negative. Urine drug screen and urinalysis pending. Patient did receive a 1 L fluid bolus in the emergency department, and normal saline is infusing at 200 mL/h. Current vitals: Temperature 97.7 F, heart rate 125 beats per minutes, blood pressure 147/92 mmHg, nontachypneic, on room air, SpO2 96% patient is currently being evaluated in the emergency department, trauma bay 2, he is lethargic but able to protect his airway at this time. Patient is aphasic. Eyes right upper preferential gaze. Left-sided facial droop noted. Does withdraw to painful stimuli in all 4 extremities, appears weaker on the left. Intermittently follows simple commands. We are not able to get a hold of next of kin at this time. Only contact is the significant other of a grandchild. Review of Systems ROS unobtainable: due to mental status Past Medical History Past Medical History: COPD, Diabetes Mellitus, Hyperlipidemia, Hypertension History of Any Multi-Drug Resistant Organisms: None Reported Additional Past Surgical History / Comment(s): neck surgery Past Psychological History: No Psychological Hx Reported Past Alcohol Use History: None Reported Past Drug Use History: None Reported Medications and Allergies Home Medications Medication Instructions Recorded Confirmed Type Albuterol Inhaler [Ventolin Hfa 2 puff INHALATION RT-Q6H PRN 02/23/18 02/23/18 History Inhaler] Atorvastatin [Lipitor] 10 mg PO DAILY 02/23/18 02/23/18 History Azithromycin [Zithromax Tri-Nathaniel] 500 mg PO DAILY #3 tab 02/23/18 Rx Ergocalciferol [Vitamin D2] 50,000 unit PO Q7D 02/23/18 02/23/18 History Fluticasone Propion/Salmeterol 1 puff INHALATION RT-BID 02/23/18 02/23/18 History [Advair Hfa 115-21 Mcg Inhaler] Insulin Aspart Prot/Insuln Asp 25 unit SQ BID 02/23/18 02/23/18 History [Novolog Mix 70-30 Flexpen Syrn] Levothyroxine Sodium [Synthroid] 100 mcg PO DAILY 02/23/18 02/23/18 History Omeprazole 20 mg PO DAILY 02/23/18 02/23/18 History Travoprost [Travatan Z 0.004%] 1 drop BOTH EYES HS 02/23/18 02/23/18 History lisinopriL [Zestril] 20 mg PO DAILY 02/23/18 02/23/18 History predniSONE [Deltasone] 20 mg PO DAILY #5 tab 02/23/18 Rx Allergies Allergy/AdvReac Type Severity Reaction Status Date / Time No Known Allergies Allergy Verified 02/23/18 17:37 Physical Exam Vitals: Vital Signs Temp Pulse Resp BP Pulse Ox 06/15/24 04:35 125 H 18 147/92 96 06/15/24 04:32 125 H 06/15/24 04:15 108 H 06/15/24 03:41 112 H 18 94/77 96 06/15/24 02:36 97.7 F 125 H 22 153/117 96 Intake and Output 06/14/24 06/14/24 06/15/24 14:59 22:59 06:59 Other: Weight 68.039 kg GENERAL EXAM: Lethargic, 83-year-old male, aphasic, limited cooperation with exam, follows some simple commands, does not appear to be in any distress. HEAD: Normocephalic and atraumatic EYES: Normal reaction of pupils, equal size. Right upper preferential gaze. No nystagmus. Nonicteric sclera. NOSE: Clear with pink turbinates. THROAT: No erythema or exudates. Dry mucous membranes. NECK: No masses, no JVD. CHEST: No chest wall deformity. LUNGS: Equal air entry with no crackles, wheeze, rhonchi or dullness. On room air. No conversational dyspnea or accessory muscle use.. CVS: S1 and S2 normal with no audible murmur, regular rhythm. No extra heart sounds ABDOMEN: No hepatosplenomegaly, active bowel sounds, no guarding or rigidity. S uprapubic bladder appears distended SPINE: No scoliosis or deformity SKIN: No rashes CENTRAL NERVOUS SYSTEM: Patient is lethargic, appears to be able to protect his airway at this time, expressive aphasia noted, left facial droop and flattening of the nasolabial fold, withdraws to painful stimuli in all 4 extremity, peers to be weaker on the left. Patellar DTRs 1 bilaterally. EXTREMITIES: There is no peripheral edema, clubbing, or cyanosis. Peripheral pulses are intact. Results - Laboratory Findings CBC and BMP: 06/15/24 02:50 06/15/24 07:30 PT/INR, D-dimer PT 12.9 sec (10.0-12.5) H 06/15/24 02:50 INR 1.2 (<1.2) H 06/15/24 02:50 Abnormal lab findings: Abnormal Labs 06/15/24 06/15/24 06/15/24 02:47 02:50 02:50 WBC 14.9 H MCV 101.5 H MCHC 30.2 L Neutrophils # 12.7 H PT 12.9 H INR 1.2 H Sodium Potassium Chloride Carbon Dioxide BUN Creatinine Glucose POC Glucose (mg/dL) >600 H* Plasma Lactic Acid Jose E Alkaline Phosphatase 06/15/24 06/15/24 02:50 02:50 WBC MCV MCHC Neutrophils # PT INR Sodium 123 L Potassium 6.9 H* Chloride 91 L Carbon Dioxide 14 L BUN 94 H Creatinine 1.46 H Glucose 1051 H* POC Glucose (mg/dL) Plasma Lactic Acid Jose E 8.8 H* Alkaline Phosphatase 175 H - Diagnostic Findings Chest x-ray: image reviewed Assessment and Plan Assessment: CVA, unclear exact last known well, possibly 5pm yesterday; CT angio showing abrupt cut off of the right middle cerebral artery inferior branch. Mild stenosis in the proximal right ICA. Brain CT findings showing diffuse hypodense changes seen within the cortical and white matter of the right parietal and temporal lobe. No evidence of intracranial hemorrhage or midline shift. 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 Repeat potassium pending Pseudohyponatremia, in the setting of severe hyperglycemia Acute kidney injury History of hypertension History of hyperlipidemia Chronic obstructive pulmonary disease, stable Diabetes mellitus, insulin-dependent History of hypothyroidism Plan: Neuro-interventionalist felt patient not a candidate for surgical intervention. Patient's last known well unclear, possibly 5 pm yesterday Consult medical neurologist Neurochecks per protocol Continue with insulin protocol Monitor electrolytes and recheck potassium Bladder scan and rule out urinary retention and obtain UA Currently having difficulty getting hold of next of kin. Closest relative is a significant other of grandchild. I have personally seen and examined the patient, performed the documentation and the assessment and plan as written. Number of minutes spent on the visit:20 On reevaluation, neurologist was in the room, he recommends transfer even if the patient will not be having surgical intervention. We apparently do not have neurology coverage over the weekend. Patient will be monitored in the intensive care at least until transfer can be arranged. On 06/15/2024, the patient is being seen in joint evaluation along with the nurse practitioner. The patient has sustained a massive stroke involving the right MCA distribution and the patient was found to have an abrupt cutoff sign in the right MCA artery. Patient has expressive aphasia and left-sided hemiparesis. Other comorbidities include hypertension hyperlipidemia and obstructive lung disease/COPD. The patient is also diabetic and has hypothyroidism. The patient was seen in the emergency. He was not a candidate for any neurointervention. Not a candidate for thrombolytics. Timing of exact onset of symptoms is unknown. Opted to transfer this patient to another facility where neurology service will be available over the weekend. Based on that, the patient will be transferred out. Agree on the rest of the information that was provided by the nurse practitioner. Time with Patient: Greater than 30
[2024-06-15 09:44] LABS: Glucose,Whole Blood >600 mg/dL (70-110)
[2024-06-15] MEDS: ASPIRIN 300 MG SUPP RECTAL STA (09:59)
[2024-06-15] MEDS: ASPIRIN 325 MG TAB PO STA (10:00)
[2024-06-15 12:52] VITALS: RESP 20
[2024-06-15 13:03] VITALS: BP 120/64; PULSE 110
[2024-06-15] MEDS: TICAGRELOR 90 MG TAB PO STA (13:15)
== END 2024-06-15 11:20 | disposition short-term general hospital (02) | DRG 64 ==
LOC: EC 02:33 → 2SICU 06:16
PROVIDERS: ADMIT Internal Medicine; ATTEND Internal Medicine
DX: I63.511 Cerebral infarction due to unspecified occlusion or stenosis of right middle cerebral artery (principal); E11.00 Type 2 diabetes mellitus with hyperosmolarity without nonketotic hyperglycemic-hyperosmolar coma (NKHHC); G81.94 Hemiplegia, unspecified affecting left nondominant side; E87.20 Acidosis, unspecified; N17.9 Acute kidney failure, unspecified; R29.727 NIHSS score 27; J44.9 Chronic obstructive pulmonary disease, unspecified; E11.65 Type 2 diabetes mellitus with hyperglycemia; E03.9 Hypothyroidism, unspecified; F03.90 Unspecified dementia, unspecified severity, without behavioral disturbance, psychotic disturbance, mood disturbance, and anxiety; Z79.4 Long term (current) use of insulin; I10 Essential (primary) hypertension; S00.81XA Abrasion of other part of head, initial encounter; I65.21 Occlusion and stenosis of right carotid artery; M24.59 Contracture, other specified joint; E78.5 Hyperlipidemia, unspecified; R29.810 Facial weakness; R29.6 Repeated falls; R47.01 Aphasia; E87.5 Hyperkalemia; W19.XXXA Unspecified fall, initial encounter; Y92.000 Kitchen of unspecified non-institutional (private) residence as the place of occurrence of the external cause; Z91.81 History of falling; Z79.51 Long term (current) use of inhaled steroids; Z79.82 Long term (current) use of aspirin; Z79.52 Long term (current) use of systemic steroids; Z79.890 Hormone replacement therapy; Z79.899 Other long term (current) drug therapy
CPT/HCPCS: 36415; 51702; 70450; 70496; 70498; 71045; 72125; 72170; 80051; 80053; 80320; 82009; 82565; 82947; 83605; 84484; 85025; 85610; 85730; 86850; 86900; 86901; 93005; 94640; 96361; 96365; 96366; 96375; 99291

== ENCOUNTER 2024-07-15 18:25 | Inpatient (IN) | payer MEDICARE ==
--- NOTE | 2024-07-15 19:17 | ED ---
Extremity Problem HPI - General Chief complaint: Extremity Problem,Nontraumatic Stated complaint: dvt lle Time Seen by Provider: 07/15/24 19:13 Source: EMS, RN notes reviewed, old records reviewed Mode of arrival: EMS Limitations: no limitations - History of Present Illness Initial comments: 83-year-old male with history of hypertension, hyperlipidemia, CVA, type 2 diabetes, and dementia sent from [facility] for DVT in left leg. According to paperwork at bedside, patient had ultrasound of left lower leg 2 days ago due to swelling and pain in the left leg. Ultrasound returned positive for DVT. Due to the patient's dementia, patient is unable to provide any history at bedside. Patient is currently on Eliquis twice daily. Patient denies any other symptoms. - Related Data Home Medications Medication Instructions Recorded Confirmed Albuterol Inhaler [Ventolin Hfa 2 puff INHALATION RT-Q6H PRN 02/23/18 02/23/18 Inhaler] Atorvastatin [Lipitor] 10 mg PO DAILY 02/23/18 02/23/18 Ergocalciferol [Vitamin D2] 50,000 unit PO Q7D 02/23/18 02/23/18 Fluticasone Propion/Salmeterol 1 puff INHALATION RT-BID 02/23/18 02/23/18 [Advair Hfa 115-21 Mcg Inhaler] Insulin Aspart Prot/Insuln Asp 25 unit SQ BID 02/23/18 02/23/18 [Novolog Mix 70-30 Flexpen Syrn] Levothyroxine Sodium [Synthroid] 100 mcg PO DAILY 02/23/18 02/23/18 Omeprazole 20 mg PO DAILY 02/23/18 02/23/18 Travoprost [Travatan Z 0.004%] 1 drop BOTH EYES HS 02/23/18 02/23/18 lisinopriL [Zestril] 20 mg PO DAILY 02/23/18 02/23/18 Previous Rx's Medication Instructions Recorded Azithromycin [Zithromax Tri-Nathaniel] 500 mg PO DAILY #3 tab 02/23/18 predniSONE [Deltasone] 20 mg PO DAILY #5 tab 02/23/18 Allergies Allergy/AdvReac Type Severity Reaction Status Date / Time No Known Allergies Allergy Verified 07/15/24 18:34 Review of Systems ROS Statement: Those systems with pertinent positive or pertinent negative responses have been documented in the HPI. ROS Other: All systems not noted in ROS Statement are negative. Past Medical History Past Medical History: COPD, Diabetes Mellitus, Hyperlipidemia, Hypertension History of Any Multi-Drug Resistant Organisms: None Reported Additional Past Surgical History / Comment(s): neck surgery Past Psychological History: No Psychological Hx Reported Smoking Status: Former smoker Past Alcohol Use History: None Reported Past Drug Use History: None Reported General Exam Limitations: no limitations General appearance: alert, in no apparent distress Head exam: Present: atraumatic, normocephalic, normal inspection Respiratory exam: Present: normal lung sounds bilaterally. Absent: respiratory distress, wheezes, rales, rhonchi, stridor Cardiovascular Exam: Present: normal rhythm, tachycardia, normal heart sounds. Absent: systolic murmur, diastolic murmur, rubs, gallop, clicks Left Knee exam: Present: normal inspection, full ROM. Absent: tenderness, swelling Lower Leg exam: Present: full ROM, tenderness, swelling, erythema. Absent: normal inspection (Left lower extremity mildly edematous and erythematous with abrasion present on anterior lower leg) Ankle exam: Present: normal inspection, full ROM. Absent: tenderness, swelling Foot/Toe exam: Present: normal inspection, full ROM. Absent: tenderness, swelling Neurovascular tendon exam: Present: no vascular compromise. Absent: pulse deficit, abnormal cap refill, sensory deficit Neurological exam: Present: alert Skin exam: Present: warm, dry, intact, normal color. Absent: rash Course Vital Signs 07/15/24 07/15/24 07/15/24 18:28 20:44 23:05 Temperature 100.6 F H 98.9 F Pulse Rate 101 H 83 Respiratory 20 16 Rate Blood Pressure 119/55 125/63 O2 Sat by Pulse 96 Oximetry Medical Decision Making - Medical Decision Making Was pt. sent in by a medical professional or institution (, PA, CRUISE GUIDE, urgent care, hospital, or residential...) When possible be specific @ -Sent by [facility] for DVT left lower extremity Did you speak to anyone other than the patient for history (EMS, parent, family, police, friend...)? What history was obtained from this source @ -History from EMS/paperwork Did you review nursing and triage notes (agree or disagree)? Why? @ -I reviewed and agree with nursing and triage notes Were old charts reviewed (outside hosp., previous admission, EMS record, old EKG, old radiological studies, urgent care reports/EKG's, residential records)? Report findings @ -No old charts were reviewed Differential Diagnosis (chest pain, altered mental status, abdominal pain women, abdominal pain men, vaginal bleeding, weakness, fever, dyspnea, syncope, headache, dizziness, GI bleed, back pain, seizure, CVA, palpatations, mental health, musculoskeletal)? @ -Differential Musculoskeletal Muscular strain, contusion, ligament sprain, fracture, arthritis, septic arthritis, bursitis, cellulitis, muscle spasm, nerve compression, DVT, arterial occlusion, herpes zoster, electrolyte abnormality, tumor.... This is not meant to be in all inclusive list EKG interpreted by me (3pts min.). @ -None X-rays interpreted by me (1pt min.). @ -Chest x-ray reveals no acute cardiopulmonary process CT interpreted by me (1pt min.). @ -None done U/S interpreted by me (1pt. min.). @ -Ultrasound left lower extremity reveals deep vein thrombosis left common femoral vein What testing was considered but not performed or refused? (CT, X-rays, U/S, labs)? Why? @ -None What meds were considered but not given or refused? Why? @ -None Did you discuss the management of the patient with other professionals (professionals i.e. , PA, CRUISE GUIDE, lab, RT, psych nurse, licensed social worker, hollock maker, teacher, security police officer, case planner)? Give summary @ -I spoke with Dr. Fink who [facility] Was smoking cessation discussed for >3mins.? @ -No Was critical care preformed (if so, how long)? @ -Yes, 45 minutes Were there social determinants of health that impacted care today? How? (Homelessness, low income, unemployed, alcoholism, drug addiction, transportation, low edu. Level, literacy, decrease access to med. care, care home, rehab)? @ -No Was there de-escalation of care discussed even if they declined (Discuss DNR or withdrawal of care, Hospice)? DNR status @ -No What co-morbidities impacted this encounter? (DM, HTN, Smoking, COPD, CAD, Cancer, CVA, ARF, Chemo, Hep., AIDS, mental health diagnosis, sleep apnea, morbid obesity)? @ -None Was patient admitted / discharged? Hospital course, mention meds given and route, prescriptions, significant lab abnormalities, going to OR and other pertinent info. @ -Admitted. This is an 83-year-old male on Eliquis presenting for DVT left lower extremity per ultrasound 2 days ago. Due to patient's dementia, he was unable to provide any history. He was noted to be febrile on examination at 100.6 F, heart rate 101 bpm, stable blood pressure. Patient was provided with dose of Tylenol for fever. Lab work remarkable for leukocytosis of 21. Lactic acid normal at 1.7. Urinalysis highly indicative of UTI given large amount of white blood cells and red blood cells. Ultrasound left lower extremity reveals deep vein thrombosis of left common femoral vein. Chest x-ray reveals no acute cardiopulmonary process. Blood cultures taken and patient was started on IV Rocephin and IV fluids for septic UTI. I spoke with Dr. Armas who accepts admission for septic UTI and DVT on Eliquis with requests to consult vascular and hematology. Case was discussed with my ED attending Dr. Denton Undiagnosed new problem with uncertain prognosis? @ -No Drug Therapy requiring intensive monitoring for toxicity (Heparin, Nitro, Insulin, Cardizem)? @ -No Were any procedures done? @ -No Diagnosis/symptom? @ -Urinary tract infection, sepsis, DVT Acute, or Chronic, or Acute on Chronic? @ -Acute Uncomplicated (without systemic symptoms) or Complicated (systemic symptoms)? @ -Complicated Side effects of treatment? @ -No Exacerbation, Progression, or Severe Exacerbation? @ -No Poses a threat to life or bodily function? How? (Chest pain, USA, ND, pneumonia, PE, COPD, DKA, ARF, appy, cholecystitis, CVA, Diverticulitis, Homicidal, Suicidal, threat to staff... and all critical care pts) @ -Yes, sepsis and DVT - Lab Data Result diagrams: 07/15/24 20:09 07/15/24 20:09 Lab Results 07/15/24 07/15/24 07/15/24 Range/Units 20:09 20:09 20:09 WBC 21.2 H (3.8-10.6) k/uL RBC 3.37 L (4.30-5.90) m/uL Hgb 10.2 L D (13.0-17.5) gm/dL Hct 31.4 L (39.0-53.0) % MCV 93.0 D (80.0-100.0) fL MCH 30.4 (25.0-35.0) pg MCHC 32.7 (31.0-37.0) g/dL RDW 14.3 (11.5-15.5) % Plt Count 483 H D (150-450) k/uL MPV 6.7 Neutrophils % 65 % Lymphocytes % 24 % Monocytes % 8 % Eosinophils % 1 % Basophils % 0 % Neutrophils # 13.8 H (1.3-7.7) k/uL Lymphocytes # 5.0 H (1.0-4.8) k/uL Monocytes # 1.7 H (0-1.0) k/uL Eosinophils # 0.3 (0-0.7) k/uL Basophils # 0.1 (0-0.2) k/uL Hypochromasia Slight PT (10.0-12.5) sec INR (<1.2) APTT (22.0-30.0) sec Sodium 136 L (137-145) mmol/L Potassium 5.1 (3.5-5.1) mmol/L Chloride 101 (98-107) mmol/L Carbon Dioxide 22 (22-30) mmol/L Anion Gap 13 mmol/L BUN 24 H (9-20) mg/dL Creatinine 0.87 (0.66-1.25) mg/dL Est GFR (CKD-EPI)AfAm >90 (>60 ml/min/1.73 sqM) Est GFR (CKD-EPI)NonAf 81 (>60 ml/min/1.73 sqM) Glucose 52 L (74-99) mg/dL Plasma Lactic Acid Jose E (0.7-2.0) mmol/L Calcium 8.5 (8.4-10.2) mg/dL Total Bilirubin 0.8 (0.2-1.3) mg/dL AST 109 H (17-59) U/L ALT 44 (4-49) U/L Alkaline Phosphatase 108 (38-126) U/L Total Protein 6.9 (6.3-8.2) g/dL Albumin 2.9 L (3.5-5.0) g/dL Urine Color Urine Appearance (Clear) Urine pH (5.0-8.0) Ur Specific Huggins (1.001-1.035) Urine Protein (Negative) Urine Glucose (UA) (Negative) Urine Ketones (Negative) Urine Blood (Negative) Urine Nitrite (Negative) Urine Bilirubin (Negative) Urine Urobilinogen (<2.0) mg/dL Ur Leukocyte Esterase (Negative) Urine RBC (0-5) /hpf Urine WBC (0-5) /hpf Urine WBC Clumps (None) /hpf Urine Bacteria (None) /hpf Influenza Type A (PCR) Not Detected (Not Detectd) Influenza Type B (PCR) Not Detected (Not Detectd) RSV (PCR) Not Detected (Not Detectd) SARS-CoV-2 (PCR) Not Detected (Not Detectd) 07/15/24 07/15/24 07/15/24 Range/Units 20:09 20:09 20:56 WBC (3.8-10.6) k/uL RBC (4.30-5.90) m/uL Hgb (13.0-17.5) gm/dL Hct (39.0-53.0) % MCV (80.0-100.0) fL MCH (25.0-35.0) pg MCHC (31.0-37.0) g/dL RDW (11.5-15.5) % Plt Count (150-450) k/uL MPV Neutrophils % % Lymphocytes % % Monocytes % % Eosinophils % % Basophils % % Neutrophils # (1.3-7.7) k/uL Lymphocytes # (1.0-4.8) k/uL Monocytes # (0-1.0) k/uL Eosinophils # (0-0.7) k/uL Basophils # (0-0.2) k/uL Hypochromasia PT 12.2 (10.0-12.5) sec INR 1.1 (<1.2) APTT 30.8 H (22.0-30.0) sec Sodium (137-145) mmol/L Potassium (3.5-5.1) mmol/L Chloride (98-107) mmol/L Carbon Dioxide (22-30) mmol/L Anion Gap mmol/L BUN (9-20) mg/dL Creatinine (0.66-1.25) mg/dL Est GFR (CKD-EPI)AfAm (>60 ml/min/1.73 sqM) Est GFR (CKD-EPI)NonAf (>60 ml/min/1.73 sqM) Glucose (74-99) mg/dL Plasma Lactic Acid Jose E 1.7 (0.7-2.0) mmol/L Calcium (8.4-10.2) mg/dL Total Bilirubin (0.2-1.3) mg/dL AST (17-59) U/L ALT (4-49) U/L Alkaline Phosphatase (38-126) U/L Total Protein (6.3-8.2) g/dL Albumin (3.5-5.0) g/dL Urine Color Yellow Urine Appearance Turbid (Clear) Urine pH 6.5 (5.0-8.0) Ur Specific Huggins 1.019 (1.001-1.035) Urine Protein 2+ H (Negative) Urine Glucose (UA) Negative (Negative) Urine Ketones Negative (Negative) Urine Blood Large H (Negative) Urine Nitrite Positive (Negative) Urine Bilirubin Negative (Negative) Urine Urobilinogen <2.0 (<2.0) mg/dL Ur Leukocyte Esterase Large H (Negative) Urine RBC >182 H (0-5) /hpf Urine WBC >182 H (0-5) /hpf Urine WBC Clumps Many H (None) /hpf Urine Bacteria Moderate H (None) /hpf Influenza Type A (PCR) (Not Detectd) Influenza Type B (PCR) (Not Detectd) RSV (PCR) (Not Detectd) SARS-CoV-2 (PCR) (Not Detectd) Disposition Clinical Impression: Urinary tract infection, Sepsis, Deep vein thrombosis (DVT) of left lower extremity Disposition: ADMITTED IP TO THIS [facility] Time of Disposition: 22:53
--- NOTE | 2024-07-15 19:27 | XR ---
EXAMINATION TYPE: XR chest 2V DATE OF EXAM: 07/15/2024 7:19 PM COMPARISON: Chest radiographs from 06/15/2024 CLINICAL INDICATION: Male, 83 years old with history of fever; [facility] TECHNIQUE: XR chest 2V Frontal and lateral views of the chest. FINDINGS: Lungs/Pleura: There is no evidence of pleural effusion, focal consolidation, or pneumothorax. Pulmonary vascularity: Unremarkable. Heart/mediastinum: Cardiomediastinal silhouette is unremarkable. Musculoskeletal: No acute osseous pathology. IMPRESSION: No acute cardiopulmonary disease/process. [facility], , 07/15/2024 7:25 PM
[2024-07-15] MEDS: ACETAMINOPHEN TAB 500 MG TAB PO STA (19:55)
[2024-07-15 20:41] LABS: Basophils # (A) 0.1 k/uL (0-0.2); Basophils % (A) 0 %; Eosinophils # (A) 0.3 k/uL (0-0.7); Eosinophils % (A) 1 %; HCT 31.4 % (39.0-53.0); Hypochromasia Slight; Lymphocytes % (A) 24 %; MCH 30.4 pg (25.0-35.0); MCHC 32.7 g/dL (31.0-37.0); Mean Platelet Volume 6.7; Monocytes # (A) 1.7 k/uL (0-1.0); Monocytes % (A) 8 %; Neutrophils # (A) 13.8 k/uL (1.3-7.7); Neutrophils % (A) 65 %; RBC 3.37 m/uL (4.30-5.90); RDW 14.3 % (11.5-15.5); WBC 21.2 k/uL (3.8-10.6)
[2024-07-15 20:45] LABS: HGB 10.2 gm/dL (13.0-17.5)
[2024-07-15 20:46] LABS: Platelet Count 483 k/uL (150-450)
[2024-07-15 20:47] LABS: INR 1.1 (<1.2); Partial Thromboplastin Time 30.8 sec (22.0-30.0); Prothrombin Time 12.2 sec (10.0-12.5)
--- NOTE | 2024-07-15 21:01 | US ---
EXAMINATION TYPE: US venous doppler duplex LE LT DATE OF EXAM: 07/15/2024 8:22 PM COMPARISON: NONE CLINICAL INDICATION: Male, 83 years old with history of left lower extremity DVT; dvt, Pain TECHNIQUE: The lower extremity deep venous system is examined utilizing real time linear array sonog denys with graded compression, color doppler sonography, and spectral doppler. SIDE PERFORMED: Left FINDINGS: VESSELS IMAGED: Common Femoral Vein Deep Femoral Vein Greater Saphenous Vein * Femoral Vein Popliteal Vein Small Saphenous Vein * Proximal Calf Veins (* superficial vessels) Left Leg: Positive for DVT Common Femoral through Femoral Vein. IMPRESSION: 1. Deep vein thrombosis of the left Common Femoral through Femoral Vein. 2. Streaky subcutaneous changes edema throughout the lower extremity. Findings communicated to MERCEDES Duvall on 07/15/2024 8:[address] Amanuel Barreto. [facility], , 07/15/2024 8:59 PM
[2024-07-15 21:07] LABS: ALT 44 U/L (4-49); African American GFR (CKD) >90 (>60 ml/min/1.73 sqM); Anion Gap 13 mmol/L; Blood Urea Nitrogen 24 mg/dL (9-20); Calcium 8.5 mg/dL (8.4-10.2); Carbon Dioxide 22 mmol/L (22-30); Chloride 101 mmol/L (98-107); Glucose 52 mg/dL (74-99); Non-African American GFR(CKD) 81 (>60 ml/min/1.73 sqM); Sodium 136 mmol/L (137-145)
[2024-07-15 21:10] LABS: AST 109 U/L (17-59); Albumin 2.9 g/dL (3.5-5.0); Alkaline Phosphatase 108 U/L (38-126); Potassium 5.1 mmol/L (3.5-5.1); Total Bilirubin 0.8 mg/dL (0.2-1.3); Total Protein 6.9 g/dL (6.3-8.2)
[2024-07-15 21:11] LABS: Appearance,Urine Turbid (Clear); Bacteria,Urine Moderate /hpf; Bilirubin,Urine Negative (Negative); Blood,Urine Large (Negative); Color,Urine Yellow; Glucose,Urine (UA) Negative (Negative); Ketones,Urine Negative (Negative); Leukocyte Esterase,Urine Large (Negative); Nitrite,Urine Positive (Negative); PH, Urine 6.5 (5.0-8.0); Protein,Urine 2+ (Negative); RBC,Urine >182 /hpf (0-5); Specific Gravity,Urine 1.019 (1.001-1.035); Urobilinogen,Urine <2.0 mg/dL (<2.0); WBC,Urine >182 /hpf (0-5)
[2024-07-15 21:25] LABS: Influenza A Not Detected (Not Detectd); Influenza B Not Detected (Not Detectd); RSV Not Detected (Not Detectd)
[2024-07-15] MEDS: SODIUM CHLORIDE 0.9% 1,000 ML IV STA ×2 (22:33→23:24)
[2024-07-15] MEDS ORDERED: NALOXONE 0.4 MG/ML 1 ML VIAL IV PRN (22:46)
[2024-07-15] MEDS ORDERED: ONDANSETRON 4 MG/2 ML VIAL IVP PRN (22:46)
[2024-07-15] MEDS: SODIUM CHLORIDE 0.9% 1,000 ML IV SCH (23:56)
[2024-07-16 04:47] LABS: Glucose,Whole Blood 159 mg/dL (70-110)
[2024-07-16] MEDS ORDERED: DEXTROSE 50% SYRINGE 50 ML IVP PRN ×2 (09:34)
[2024-07-16] MEDS: DOCUSATE 100 MG CAP PO SCH (09:53)
[2024-07-16] MEDS: QUEtiapine 25 MG TAB PO SCH (09:54)
[2024-07-16] MEDS: LEVOTHYROXINE 75 MCG TAB PO SCH (09:54)
[2024-07-16] MEDS: ACETAMINOPHEN TAB 325 MG TAB PO PRN (10:27)
--- NOTE | 2024-07-16 11:27 | P.GSCN ---
History of Present Illness Consult date: 07/16/24 Reason for Consult: DVT on Eliquis Requesting physician: Loretta Beckwith History of present illness: This is a pleasantly confused 83-year-old male with a history of dementia, recent ischemic cardioembolic stroke diagnosed and treated near the end of May. It appears patient was on Brilinta, aspirin [facility]. Patient is a poor historian with history of dementia. Patient currently oriented to self and knows he is at the hospital however thought he was at [facility] in [place]. Patient is being admitted for left lower extremity DVT and urinary tract infection. Apparently patient had some swelling and complaints of pain of the left lower extremity according to emergency department notes. He had a venous duplex of the left lower extremity with findings of deep vein thrombosis of the left common femoral through femoral vein with streaky subcutaneous changes edema throughout the lower extremity. Vascular surgery was consulted for left lower extremity DVT on anticoagulation however patient was not on a full strength anticoagulation. According to reports patient has had multiple recent falls, so blood clot certainly could be provoked. He currently denies any pain in his left lower extremity. Review of Systems ROS unobtainable: due to mental status Past Medical History Past Medical History: COPD, Diabetes Mellitus, Hyperlipidemia, Hypertension History of Any Multi-Drug Resistant Organisms: None Reported Additional Past Surgical History / Comment(s): neck surgery Past Psychological History: No Psychological Hx Reported Smoking Status: Former smoker Past Alcohol Use History: None Reported Past Drug Use History: None Reported Medications and Allergies Home Medications Medication Instructions Recorded Confirmed Type Apixaban [Eliquis] 2.5 mg PO BID 07/16/24 07/16/24 History Aspirin 81 mg PO DAILY 07/16/24 07/16/24 History Atorvastatin [Lipitor] 80 mg PO HS 07/16/24 07/16/24 History Docusate [Colace] 100 mg PO Q12H 07/16/24 07/16/24 History INSULIN LISPRO (HumaLOG) [humaLOG] See Protocol SQ ACHS 07/16/24 07/16/24 History Insulin Glargine [Lantus Vial] 35 unit SQ HS 07/16/24 07/16/24 History Insulin Lispro 8 units SQ TID-W/MEALS 07/16/24 07/16/24 History Latanoprost [Latanoprost 0.005%] 1 drop BOTH EYES HS 07/16/24 07/16/24 History Levothyroxine Sodium [Synthroid] 125 mcg PO SUTUWEFRSA 07/16/24 07/16/24 History Levothyroxine Sodium [Synthroid] 150 mcg PO MOTH 07/16/24 07/16/24 History Melatonin 3 mg PO HS 07/16/24 07/16/24 History Midodrine HCl [ProAmantine] 2.5 mg PO TID-W/MEALS 07/16/24 07/16/24 History QUEtiapine FUMARATE [SEROquel] 25 mg PO Q12H 07/16/24 07/16/24 History Ticagrelor [Brilinta] 90 mg PO Q12H 07/16/24 07/16/24 History Allergies Allergy/AdvReac Type Severity Reaction Status Date / Time No Known Allergies Allergy Verified 07/16/24 08:59 Surgical - Exam Vital Signs Temp Pulse Resp BP Pulse Ox 100.6 F H 101 H 20 119/55 96 07/15/24 18:28 07/15/24 18:28 07/15/24 18:28 07/15/24 18:28 07/15/24 18:28 General appearance: The patient is alert, oriented to self, appears in no acute distress. HET: Head is normocephalic and atraumatic. Neck: Supple. Heart: Regular. Lungs: Equal expansion, normal respiratory effort. Abdomen: Soft, nontender, nondistended. Extremities: Normal skin color and turgor. Minimal left lower extremity edema, nontender. Palpable femoral and DP pulses. Neurological: Alert and oriented to self, patient states he is in the hospital in [place] however thought he was at [facility].. Results - Labs 07/15/24 20:09 07/15/24 20:09 Abnormal Lab Results - Last 24 Hours (Table) 07/15/24 07/15/24 07/15/24 Range/Units 20:09 20:09 20:09 WBC 21.2 H (3.8-10.6) k/uL RBC 3.37 L (4.30-5.90) m/uL Hgb 10.2 L D (13.0-17.5) gm/dL Hct 31.4 L (39.0-53.0) % Plt Count 483 H D (150-450) k/uL Neutrophils # 13.8 H (1.3-7.7) k/uL Lymphocytes # 5.0 H (1.0-4.8) k/uL Monocytes # 1.7 H (0-1.0) k/uL APTT 30.8 H (22.0-30.0) sec Sodium 136 L (137-145) mmol/L BUN 24 H (9-20) mg/dL Glucose 52 L (74-99) mg/dL POC Glucose (mg/dL) (70-110) mg/dL AST 109 H (17-59) U/L Albumin 2.9 L (3.5-5.0) g/dL Urine Protein (Negative) Urine Blood (Negative) Ur Leukocyte Esterase (Negative) Urine RBC (0-5) /hpf Urine WBC (0-5) /hpf Urine WBC Clumps (None) /hpf Urine Bacteria (None) /hpf 07/15/24 07/16/24 Range/Units 20:56 04:45 WBC (3.8-10.6) k/uL RBC (4.30-5.90) m/uL Hgb (13.0-17.5) gm/dL Hct (39.0-53.0) % Plt Count (150-450) k/uL Neutrophils # (1.3-7.7) k/uL Lymphocytes # (1.0-4.8) k/uL Monocytes # (0-1.0) k/uL APTT (22.0-30.0) sec Sodium (137-145) mmol/L BUN (9-20) mg/dL Glucose (74-99) mg/dL POC Glucose (mg/dL) 159 H (70-110) mg/dL AST (17-59) U/L Albumin (3.5-5.0) g/dL Urine Protein 2+ H (Negative) Urine Blood Large H (Negative) Ur Leukocyte Esterase Large H (Negative) Urine RBC >182 H (0-5) /hpf Urine WBC >182 H (0-5) /hpf Urine WBC Clumps Many H (None) /hpf Urine Bacteria Moderate H (None) /hpf Diabetes panel 07/15/24 Range/Units 20:09 Sodium 136 L (137-145) mmol/L Potassium 5.1 (3.5-5.1) mmol/L Chloride 101 (98-107) mmol/L Carbon Dioxide 22 (22-30) mmol/L BUN 24 H (9-20) mg/dL Creatinine 0.87 (0.66-1.25) mg/dL Glucose 52 L (74-99) mg/dL Calcium 8.5 (8.4-10.2) mg/dL AST 109 H (17-59) U/L ALT 44 (4-49) U/L Alkaline Phosphatase 108 (38-126) U/L Total Protein 6.9 (6.3-8.2) g/dL Albumin 2.9 L (3.5-5.0) g/dL Calcium panel 07/15/24 Range/Units 20:09 Calcium 8.5 (8.4-10.2) mg/dL Albumin 2.9 L (3.5-5.0) g/dL Pituitary panel 07/15/24 Range/Units 20:09 Sodium 136 L (137-145) mmol/L Potassium 5.1 (3.5-5.1) mmol/L Chloride 101 (98-107) mmol/L Carbon Dioxide 22 (22-30) mmol/L BUN 24 H (9-20) mg/dL Creatinine 0.87 (0.66-1.25) mg/dL Glucose 52 L (74-99) mg/dL Calcium 8.5 (8.4-10.2) mg/dL Adrenal panel 07/15/24 Range/Units 20:09 Sodium 136 L (137-145) mmol/L Potassium 5.1 (3.5-5.1) mmol/L Chloride 101 (98-107) mmol/L Carbon Dioxide 22 (22-30) mmol/L BUN 24 H (9-20) mg/dL Creatinine 0.87 (0.66-1.25) mg/dL Glucose 52 L (74-99) mg/dL Calcium 8.5 (8.4-10.2) mg/dL Total Bilirubin 0.8 (0.2-1.3) mg/dL AST 109 H (17-59) U/L ALT 44 (4-49) U/L Alkaline Phosphatase 108 (38-126) U/L Total Protein 6.9 (6.3-8.2) g/dL Albumin 2.9 L (3.5-5.0) g/dL Assessment and Plan Assessment: 1. Acute left lower extremity DVT 2. Urinary tract infection 3. Recent falls 4. Recent ischemic stroke 5. Dementia Plan: There is no indication for any vascular surgical intervention. Will defer anticoagulation to hematology. Case was discussed with them and they recommend starting patient on Eliquis 5 mg twice daily, no loading dose secondary to recent stroke and being on Brilinta and aspirin. May apply ISABELLA hose to left lower extremity. Rest of medical management per primary medical team. Thank you for this consultation, we will sign off at this time. The impression and plan of care has been dictated as directed. Dr. Larsen I performed a history and examination of this patient, discussed the same with the dictator. I agree with the dictator's note ,documented as a scribe. Any additional findings or plans will be noted.
[2024-07-16] MEDS: MIDODRINE 5 MG TAB PO SCH (13:52)
[2024-07-16 14:07] LABS: Glucose,Whole Blood 398 mg/dL (70-110)
[2024-07-16] MEDS: INSULIN ASPART (NovoLOG) 100 UNIT/ML VIAL SQ SCH (14:10)
[2024-07-16] MEDS: APIXABAN 5 MG TAB PO SCH (14:10)
[2024-07-16 16:16] LABS: Glucose,Whole Blood 410 mg/dL (70-110)
--- NOTE | 2024-07-16 16:51 | US ---
EXAMINATION TYPE: US venous doppler duplex LE RT DATE OF EXAM: 07/16/2024 4:33 PM COMPARISON: NONE CLINICAL INDICATION: Male, 83 years old with history of LLE DVT, baseline; Left leg DVT. Right leg ba seline. No redness or swelling. , Pain TECHNIQUE: The lower extremity deep venous system is examined utilizing real time linear array sonog denys with graded compression, color doppler sonography, and spectral doppler. SIDE PERFORMED: Right FINDINGS: VESSELS IMAGED: Common Femoral Vein Deep Femoral Vein Greater Saphenous Vein * Femoral Vein Popliteal Vein Small Saphenous Vein * Proximal Calf Veins (* superficial vessels) Right Leg: Negative for DVT, Color Doppler imaging shows patency of the vessels. Spectral waveforms are within normal limits. IMPRESSION: No ultrasound evidence for deep venous thrombosis. [facility], , 07/16/2024 4:49 PM
[2024-07-16 18:08] LABS: Glucose,Whole Blood 347 mg/dL (70-110)
[2024-07-16] MEDS: HYDROmorphone 1 MG/ML 1 ML SYRINGE IVP PRN (18:53)
[2024-07-16 20:30] LABS: Glucose,Whole Blood 269 mg/dL (70-110)
[2024-07-16] MEDS: MELATONIN 3 MG TABLET PO SCH (20:43)
[2024-07-16] MEDS: ATORVASTATIN 80 MG TAB PO SCH (20:43)
[2024-07-16] MEDS: INSULIN DETEMIR (LEVEMIR) 100 UNIT/ML SYR SQ SCH (20:44)
[2024-07-16] MEDS: LATANOPROST 0.005% OPHTH DROPS 2.5 ML BTL BOTH EYES SCH (20:45)
--- NOTE | 2024-07-16 23:53 | HP ---
HISTORY AND PHYSICAL CHIEF COMPLAINT: Change in mental status, status post DVT. HISTORY OF PRESENT ILLNESS: An 83-year-old gentleman with a past medical history of multiple medical problems, admitted initially with falls and subsequently was referred to [facility] apparently. The patient was found to have recent significant stroke involving the right hemisphere in [facility]. Subsequently, the patient was referred to rehab in [facility] under Dr. Vasquez. Because of the left leg swelling, ultrasound showed DVT and the patient was referred to [facility] for further evaluation and treatment. The patient also had change in mental status and features of UTI. The patient was started on broad-spectrum IV antibiotics. The patient is unable to give any coherent history. The patient is confused. Please note that the patient is on dual antiplatelet treatment for stroke prior to the recent rehab in [facility] and Eliquis was only started after the diagnosis of DVT not prior. PAST MEDICAL HISTORY: History of recent stroke, falls, and other medications and other history as mentioned. Chart is reviewed. HOME MEDICATIONS: 1. Brilinta. 2. Aspirin. 3. The patient was just started on Eliquis. ALLERGIES: Unknown. FAMILY HISTORY: Could not be taken. SOCIAL HISTORY: Could not be taken. REVIEW OF SYSTEMS: Could not be taken. PHYSICAL EXAMINATION: VITAL SIGNS: Pulse is 85, blood pressure 150/70, and respirations 16. HEENT: Conjunctivae normal. CARDIOVASCULAR: S1, S2. RESPIRATIONS: A few scattered rhonchi. ABDOMEN: Soft. NERVOUS SYSTEM: Diffusely weak. The patient is able to lift both upper limbs on command. LABORATORY DATA: WBC 21. Rest of the labs are noted. ASSESSMENT: 1. Acute deep vein thrombosis of the left leg. 2. Acute urinary tract infection. 3. History of recent stroke involving the right hemisphere. 4. Change in mental status and metabolic encephalopathy. 5. Chronic obstructive pulmonary disease. 6. Diabetes mellitus, type 2. 7. Hypertension. 8. Hyperlipidemia. RECOMMENDATION: This 83-year-old gentleman, presented with multiple complex medical issues, we will monitor the patient closely. I would recommend initiate broad-spectrum antibiotics, obtain culture, and Infectious Disease evaluation. As far as the DVT is concerned, the patient is started on Eliquis 5 mg p.o. b.i.d. by Vascular. I would also recommend Neurology consultation because of the previous administration of dual antiplatelet treatment and the necessity of continuing the dual antiplatelet treatment along with Eliquis. Overall prognosis extremely guarded. Further recommendations to follow. Hematology/Oncology also will be consulted. MMODL / IJN: [id number] /
[2024-07-17 06:05] LABS: Glucose,Whole Blood 60 mg/dL (70-110)
[2024-07-17 06:50] LABS: Glucose,Whole Blood 85 mg/dL (70-110)
[2024-07-17] MEDS: LEVOTHYROXINE 125 MCG TAB PO SCH (06:55)
--- NOTE | 2024-07-17 08:30 | P.CONS ---
History of Present Illness - Reason for Consult Consult date: 07/16/24 DVT, on eliquis Requesting physician: Loretta Beckwith - Chief Complaint sepsis, UTI, LLE DVT - History of Present Illness Pt was alert and answers questions but is not accurate in information, poor historian. Hx and current illness info taken from chart. Patient was hospitalized 1 month ago for MCA with carotid stenosis. He was transferred to [facility] for treatment of the same. He was started on aspirin and Brilinta at that time and he was ultimately discharged to [facility]. Patient is not ambulatory independently, he falls on his own. Pt does not look ill, he denies pain in the leg, denies any bleeding, no significant bruising. Review of Systems ROS unobtainable: due to mental status Past Medical History Past Medical History: COPD, Diabetes Mellitus, Hyperlipidemia, Hypertension History of Any Multi-Drug Resistant Organisms: None Reported Additional Past Surgical History / Comment(s): neck surgery Past Psychological History: No Psychological Hx Reported Smoking Status: Former smoker Past Alcohol Use History: None Reported Past Drug Use History: None Reported Medications and Allergies Home Medications Medication Instructions Recorded Confirmed Type Apixaban [Eliquis] 2.5 mg PO BID 07/16/24 07/16/24 History Aspirin 81 mg PO DAILY 07/16/24 07/16/24 History Atorvastatin [Lipitor] 80 mg PO 07/16/24 07/16/24 History Docusate [Colace] 100 mg PO Q12H 07/16/24 07/16/24 History INSULIN LISPRO (HumaLOG) [humaLOG] See Protocol SQ ACHS 07/16/24 07/16/24 History Insulin Glargine [Lantus Vial] 35 unit SQ HS 07/16/24 07/16/24 History Insulin Lispro 8 units SQ TID-W/MEALS 07/16/24 07/16/24 History Latanoprost [Latanoprost 0.005%] 1 drop BOTH EYES 07/16/24 07/16/24 History Levothyroxine Sodium [Synthroid] 125 mcg PO SUTUWEFRSA 07/16/24 07/16/24 History Levothyroxine Sodium [Synthroid] 150 mcg PO MOTH 07/16/24 07/16/24 History Melatonin 3 mg PO HS 07/16/24 07/16/24 History Midodrine HCl [ProAmantine] 2.5 mg PO TID-W/MEALS 07/16/24 07/16/24 History QUEtiapine FUMARATE [SEROquel] 25 mg PO Q12H 07/16/24 07/16/24 History Ticagrelor [Brilinta] 90 mg PO Q12H 07/16/24 07/16/24 History Allergies Allergy/AdvReac Type Severity Reaction Status Date / Time No Known Allergies Allergy Verified 07/16/24 08:59 Physical Exam Vitals: Vital Signs Temp Pulse Resp BP Pulse Ox 07/16/24 15:17 98.8 F 84 18 134/67 96 07/16/24 07:53 98.0 F 83 16 147/69 96 07/16/24 03:30 98.4 F 85 16 154/71 96 07/15/24 23:05 83 16 125/63 07/15/24 20:44 98.9 F 07/15/24 18:28 100.6 F H 101 H 20 119/55 96 Intake and Output 07/16/24 07/16/24 07/16/24 06:59 14:59 22:59 Output Total 900 Balance -900 Output: Urine 900 - Constitutional General appearance: cooperative, no acute distress, thin - EENT Eyes: anicteric sclerae, EOMI ENT: hearing grossly normal - Respiratory resp even and unlabored - Cardiovascular skin warm, well perfused leg Peripheral Edema: right: None, left: Trace - Integumentary Integumentary: pale - Neurologic Neurologic: CNII-XII intact - Musculoskeletal Musculoskeletal: generalized weakness - Psychiatric A&Ox2 Psychiatric: appropriate affect Results CBC & Chem 7: 07/15/24 20:09 07/15/24 20:09 Labs: Abnormal Lab Results - Last 24 Hours (Table) 07/15/24 07/15/24 07/15/24 Range/Units 20:09 20:09 20:09 WBC 21.2 H (3.8-10.6) k/uL RBC 3.37 L (4.30-5.90) m/uL Hgb 10.2 L D (13.0-17.5) gm/dL Hct 31.4 L (39.0-53.0) % Plt Count 483 H D (150-450) k/uL Neutrophils # 13.8 H (1.3-7.7) k/uL Lymphocytes # 5.0 H (1.0-4.8) k/uL Monocytes # 1.7 H (0-1.0) k/uL APTT 30.8 H (22.0-30.0) sec Sodium 136 L (137-145) mmol/L BUN 24 H (9-20) mg/dL Glucose 52 L (74-99) mg/dL POC Glucose (mg/dL) (70-110) mg/dL AST 109 H (17-59) U/L Albumin 2.9 L (3.5-5.0) g/dL Urine Protein (Negative) Urine Blood (Negative) Ur Leukocyte Esterase (Negative) Urine RBC (0-5) /hpf Urine WBC (0-5) /hpf Urine WBC Clumps (None) /hpf Urine Bacteria (None) /hpf 07/15/24 07/16/24 07/16/24 Range/Units 20:56 04:45 14:05 WBC (3.8-10.6) k/uL RBC (4.30-5.90) m/uL Hgb (13.0-17.5) gm/dL Hct (39.0-53.0) % Plt Count (150-450) k/uL Neutrophils # (1.3-7.7) k/uL Lymphocytes # (1.0-4.8) k/uL Monocytes # (0-1.0) k/uL APTT (22.0-30.0) sec Sodium (137-145) mmol/L BUN (9-20) mg/dL Glucose (74-99) mg/dL POC Glucose (mg/dL) 159 H 398 H (70-110) mg/dL AST (17-59) U/L Albumin (3.5-5.0) g/dL Urine Protein 2+ H (Negative) Urine Blood Large H (Negative) Ur Leukocyte Esterase Large H (Negative) Urine RBC >182 H (0-5) /hpf Urine WBC >182 H (0-5) /hpf Urine WBC Clumps Many H (None) /hpf Urine Bacteria Moderate H (None) /hpf Chest x-ray: report reviewed Venous US: report reviewed Assessment and Plan (1) Deep vein thrombosis (DVT) of left lower extremity Current Visit: Yes Status: Acute Code(s): I82.402 - ACUTE EMBOLISM AND THOMBOS UNSP DEEP VEINS OF L LOW EXTREM SNOMED Code(s): 785813512 (2) Sepsis Current Visit: Yes Status: Acute Code(s): A41.9 - SEPSIS, UNSPECIFIED OR GANISM SNOMED Code(s): 48100552 (3) Acute right MCA stroke Current Visit: No Status: Acute Code(s): I63.511 - CEREB INFRC D/T UNSP OCCLS OR STENOS OF RIGHT MID CEREB ART SNOMED Code(s): 550440565 Plan: DVT on prophylactic dose of eliquis -From chart review pt is not as ambulatory as he feels he is -It was difficult to determine when exactly pt was placed on eliquis-it was not on DC plan, or documented as started on [employer] paperwork. Suspecting that is was initiated at the [facility] for prophylaxis. -Provoked DVT -Pt is not felt to have failed eliquis as he was on prophylactic dose, not treatment dose. Pt is high risk for clotting. Increase dose to 5mg BID for treatment of DVT. 3mo anticoagulation then cont with prophylactic dose of 2.5mg BID -Neurology consulted-does pt cont to need dual antiplatelet therapy? To try and reduce the risk of bleeding -Discussed case with Vascular STOPPING BUILDER, no vascular intervention at this time is planned Doctor attests: I performed a history and physical examination of this patient, developed impression and plan of care. Discussed with dictator. I agree with dictators note, documented as a scribe.
[2024-07-17] MEDS: Acetaminophen-Codeine 300-30mg TAB PO PRN (08:33)
--- NOTE | 2024-07-17 10:46 | P.CONS ---
History of Present Illness - Reason for Consult Consult date: 07/16/24 UTI Requesting physician: Pita Ceballos - Chief Complaint Left leg swelling x few days - History of Present Illness Patient is a 83-year-old male with a past medical history significant for diabetes mellitus hypertension hyperlipidemia COPD patient has been sent to the ER for evaluation of increasing swelling to the left leg and this patient apparently has been diagnosed with a DVT patient has been on Eliquis patient on presentation to the hospital was running low-grade fever 100.6 F patient was not mildly tachycardic but not hypotensive or hypoxic no need for supplemental oxygen patient did have elevated white count 21.2 creatinine 0.87 did have posit vandana UA with confusion and mental status changes concerning for symptomatic UTI patient was started on Rocephin infectious disease was consulted for further management of antibiotic therapy patient is a pleasantly confused not a bit good historian with specifically denies having any chest pain shortness of breath or cough no nausea vomiting abdominal pain or diarrhea Review of Systems Positive points has been mentioned in HPI complete review could not be obtained because of his underlying mental status Past Medical History Past Medical History: COPD, Diabetes Mellitus, Hyperlipidemia, Hypertension History of Any Multi-Drug Resistant Organisms: None Reported Additional Past Surgical History / Comment(s): neck surgery Past Psychological History: No Psychological Hx Reported Smoking Status: Former smoker Past Alcohol Use History: None Reported Past Drug Use History: None Reported Medications and Allergies Home Medications Medication Instructions Recorded Confirmed Type Apixaban [Eliquis] 2.5 mg PO BID 07/16/24 07/16/24 History Aspirin 81 mg PO DAILY 07/16/24 07/16/24 History Atorvastatin [Lipitor] 80 mg PO 07/16/24 07/16/24 History Docusate [Colace] 100 mg PO Q12H 07/16/24 07/16/24 History INSULIN LISPRO (HumaLOG) [humaLOG] See Protocol SQ ACHS 07/16/24 07/16/24 History Insulin Glargine [Lantus Vial] 35 unit SQ HS 07/16/24 07/16/24 History Insulin Lispro 8 units SQ TID-W/MEALS 07/16/24 07/16/24 History Latanoprost [Latanoprost 0.005%] 1 drop BOTH EYES HS 07/16/24 07/16/24 History Levothyroxine Sodium [Synthroid] 125 mcg PO SUTUWEFRSA 07/16/24 07/16/24 History Levothyroxine Sodium [Synthroid] 150 mcg PO MOTH 07/16/24 07/16/24 History Melatonin 3 mg PO HS 07/16/24 07/16/24 History Midodrine HCl [ProAmantine] 2.5 mg PO TID-W/MEALS 07/16/24 07/16/24 History QUEtiapine FUMARATE [SEROquel] 25 mg PO Q12H 07/16/24 07/16/24 History Ticagrelor [Brilinta] 90 mg PO Q12H 07/16/24 07/16/24 History Allergies Allergy/AdvReac Type Severity Reaction Status Date / Time No Known Allergies Allergy Verified 07/16/24 08:59 Physical Exam Vitals: Vital Signs Temp Pulse Resp BP Pulse Ox 07/16/24 07:53 98.0 F 83 16 147/69 96 07/16/24 03:30 98.4 F 85 16 154/71 96 07/15/24 23:05 83 16 125/63 07/15/24 20:44 98.9 F 07/15/24 18:28 100.6 F H 101 H 20 119/55 96 Intake and Output 07/15/24 07/16/24 07/16/24 22:59 06:59 14:59 Output Total 900 Balance -900 Output: Urine 900 Other: Weight 70.942 kg GENERAL DESCRIPTION: Elderly male lying in bed, no distress. No tachypnea or accessory muscle of respiration use. HEENT: Shows Pallor , no scleral icterus. Oral mucous membrane is dry. NECK: Trachea central, no thyromegaly. LUNGS: Unlabored breathing. Clear to auscultation anteriorly. No wheeze or crackle. HEART: S1, S2, regular rate and rhythm. No loud murmur ABDOMEN: Soft, no tenderness , EXTREMITIES: No edema of feet. SKIN: No rash, no masses palpable. NEUROLOGICAL: The patient is awake, but seems to be pleasantly confused orientation could not determine no agitation Results CBC & Chem 7: 07/15/24 20:09 07/15/24 20:09 Labs: Abnormal Lab Results - Last 24 Hours (Table) 07/15/24 07/15/24 07/15/24 Range/Units 20:09 20:09 20:09 WBC 21.2 H (3.8-10.6) k/uL RBC 3.37 L (4.30-5.90) m/uL Hgb 10.2 L D (13.0-17.5) gm/dL Hct 31.4 L (39.0-53.0) % Plt Count 483 H D (150-450) k/uL Neutrophils # 13.8 H (1.3-7.7) k/uL Lymphocytes # 5.0 H (1.0-4.8) k/uL Monocytes # 1.7 H (0-1.0) k/uL APTT 30.8 H (22.0-30.0) sec Sodium 136 L (137-145) mmol/L BUN 24 H (9-20) mg/dL Glucose 52 L (74-99) mg/dL POC Glucose (mg/dL) (70-110) mg/dL AST 109 H (17-59) U/L Albumin 2.9 L (3.5-5.0) g/dL Urine Protein (Negative) Urine Blood (Negative) Ur Leukocyte Esterase (Negative) Urine RBC (0-5) /hpf Urine WBC (0-5) /hpf Urine WBC Clumps (None) /hpf Urine Bacteria (None) /hpf 07/15/24 07/16/24 Range/Units 20:56 04:45 WBC (3.8-10.6) k/uL RBC (4.30-5.90) m/uL Hgb (13.0-17.5) gm/dL Hct (39.0-53.0) % Plt Count (150-450) k/uL Neutrophils # (1.3-7.7) k/uL Lymphocytes # (1.0-4.8) k/uL Monocytes # (0-1.0) k/uL APTT (22.0-30.0) sec Sodium (137-145) mmol/L BUN (9-20) mg/dL Glucose (74-99) mg/dL POC Glucose (mg/dL) 159 H (70-110) mg/dL AST (17-59) U/L Albumin (3.5-5.0) g/dL Urine Protein 2+ H (Negative) Urine Blood Large H (Negative) Ur Leukocyte Esterase Large H (Negative) Urine RBC >182 H (0-5) /hpf Urine WBC >182 H (0-5) /hpf Urine WBC Clumps Many H (None) /hpf Urine Bacteria Moderate H (None) /hpf Assessment and Plan (1) Sepsis Current Visit: Yes Status: Acute Code(s): A41.9 - SEPSIS, UNSPECIFIED ORGANISM SNOMED Code(s): 47742393 (2) Urinary tract infection Current Visit: Yes Status: Acute Code(s): N39.0 - URINARY TRACT INFECTION, SITE NOT SPECIFIED SNOMED Code(s): 19871450 Plan: 1patient with features of sepsis, in this patient who did have a fever tachycardia elevated white count meeting currently for SIRS source is likely UTI in this patient who did have some confusion elevated white count and positive UA concerning for symptomatic UTI likely from enteric gram-negative pathogen patient currently do not have any obvious focus of infection lungs were clear to auscultation abdomen was soft and no evidence of any cellulitis or joint s welling. 2Rocephin 2 g daily while waiting for the culture to finalize. We will follow on clinical condition and cultures to further adjust medication if needed Thank you for this consultation we will follow the patient along with you Dictation was produced using [employer] dictation software. please excuse any grammatical, word or spelling errors. Time with Patient: Greater than 30
[2024-07-17 10:49] LABS: African American GFR (CKD) >90 (>60 ml/min/1.73 sqM); Anion Gap 6 mmol/L; Blood Urea Nitrogen 17 mg/dL (9-20); Calcium 7.9 mg/dL (8.4-10.2); Carbon Dioxide 28 mmol/L (22-30); Chloride 104 mmol/L (98-107); Glucose 145 mg/dL (74-99); Non-African American GFR(CKD) 85 (>60 ml/min/1.73 sqM); Potassium 4.3 mmol/L (3.5-5.1); Sodium 138 mmol/L (137-145)
[2024-07-17 11:27] LABS: Glucose,Whole Blood 153 mg/dL (70-110)
[2024-07-17] MEDS ORDERED: VANCOMYCIN IV PER PHARMACY 1 EACH MISC MISCELLANE PRN (12:47)
[2024-07-17] MEDS: VANCOMYCIN 1,250 MG in SODIUM CHLORIDE 0.9% 250 ML IVPB SCH (14:20)
[2024-07-17 15:01] LABS: Basophils # (A) 0.04 X 10*3/uL (0.00-0.10); Basophils % (A) 0.3 %; Eosinophils # (A) 0.37 X 10*3/uL (0.04-0.35); Eosinophils % (A) 2.3 %; HCT 30.4 % (39.6-50.0); HGB 9.5 g/dL (13.0-17.0); Lymphocytes # (A) 2.11 X 10*3/uL (0.90-5.00); Lymphocytes % (A) 13.3 %; MCH 29.5 pg (27.0-32.0); MCHC 31.3 g/dL (32.0-37.0); MCV 94.4 FL (80.0-97.0); Mean Platelet Volume 9.1 FL (9.5-12.2); Monocytes # (A) 1.74 X 10*3/uL (0.20-1.00); Monocytes % (A) 10.9 %; NRBC Per 100 WBC 0 X 10*3/uL (0.00-0.01); Neutrophils # (A) 11.55 X 10*3/uL (1.80-7.70); Neutrophils % (A) 72.5 %; Platelet Count 484 X 10*3/uL (140-440); RBC 3.22 X 10*6/uL (4.40-5.60); RDW 14.6 % (11.5-14.5); WBC 15.92 X 10*3/uL (4.50-10.00)
--- NOTE | 2024-07-17 15:29 | P.PN ---
Subjective Progress Note Date: 07/17/24 Principal diagnosis: Reason for follow-up is sepsis and UTI Patient is a 83-year-old male with a past medical history significant for diabetes mellitus hypertension hyperlipidemia COPD patient has been sent to the ER for evaluation of increasing swelling to the left leg, patient also have mental status changes low-grade fever elevated white count concerning for sepsis secondary to UTI On today's evaluation that is 07/17/2024, Patient did have low-grade fever 100.3 last night, patient is is afebrile this morning patient has been complaining of generalized aches and pains all over his body denies any nausea vomiting abdominal pain or diarrhea. Patient white count is down to 15.92, creatinine 0.77 urine culture growing group D Enterococcus and presumptive Staph aureus Objective - Vital Signs Vital signs: Vital Signs Temp 98.2 F 07/17/24 06:54 Pulse 78 07/17/24 06:54 Resp 16 07/17/24 06:54 BP 129/66 07/17/24 06:54 Pulse Ox 97 07/17/24 06:54 FiO2 Intake & Output 07/16/24 07/17/24 07/17/24 18:59 06:59 18:59 Output Total 1000 400 Balance -1000 -400 Output: Urine 1000 400 Other: Voiding Method Indwelling Catheter Indwelling Catheter - Exam GENERAL DESCRIPTION: An elderly male lying in bed in no distress RESPIRATORY SYSTEM: Unlabored breathing , decreased breath sounds at bases HEART: S1 S2 regular rate and rhythm , ABDOMEN: Soft , no tenderness EXTREMITIES: No edema feet - Labs CBC & Chem 7: 07/17/24 09:44 07/17/24 09:44 Labs: Abnormal Lab Results - Last 24 Hours (Table) 07/16/24 07/16/24 07/16/24 Range/Units 14:05 16:14 18:05 Glucose (74-99) mg/dL POC Glucose (mg/dL) 398 H 410 H 347 H (70-110) mg/dL Calcium (8.4-10.2) mg/dL 07/16/24 07/17/24 07/17/24 Range/Units 20:29 06:02 09:44 Glucose 145 H (74-99) mg/dL POC Glucose (mg/dL) 269 H 60 L (70-110) mg/dL Calcium 7.9 L (8.4-10.2) mg/dL 07/17/24 Range/Units 11:25 Glucose (74-99) mg/dL POC Glucose (mg/dL) 153 H (70-110) mg/dL Calcium (8.4-10.2) mg/dL Microbiology - Last 24 Hours (Table) 07/15/24 20:56 Urine Culture - Preliminary Urine,Voided Presumptive Staph aureus Group D Enterococcus Assessment and Plan (1) Sepsis Current Visit: Yes Status: Acute Code(s): A41.9 - SEPSIS, UNSPECIFIED ORGANISM SNOMED Code(s): 40215071 (2) Urinary tract infection Current Visit: Yes Status: Acute Code(s): N39.0 - URINARY TRACT INFECTION, SITE NOT SPECIFIED SNOMED Code(s): 75380245 Plan: 1patient with features of sepsis, in this patient who did have a fever tachycardia elevated white count meeting currently for SIRS source is likely UTI in this patient who did have some confusion elevated white count and positive UA concerning for symptomatic UTI likely from enteric gram-negative pathogen patient currently do not have any obvious focus of infection lungs were clear to auscultation abdomen was soft and no evidence of any cellulitis or joint swelling. 2patient urine is growing group D Enterococcus and Staph aureus we will discontinue Rocephin and start the patient on vancomycin pending culture finalization Dictation was produced using [employer] dictation software. please excuse any grammatical, word or spelling errors. Time with Patient: Less than 30
--- NOTE | 2024-07-17 15:48 | CA ---
Transthoracic Echo Report Name: Bill Salter Age: 83 Gender: M : 1940 Exam Date: 07/17/2024 09:46 Exam Location: [facility] Ht (in): 72 Wt (lb): 156 Ordering Physician: Anoop Majano MD Attending/Referring Phys: [employer] Erica Wahl RDCS Procedure CPT: Indications: stroke Cardiac Hx: Technical Quality: Contrast 1: Total Dose (mL): Contrast 2: Total Dose (mL): MEASUREMENTS (Male / Female) Normal Values 2D ECHO LV Diastolic Diameter PLAX 4.5 cm 4.2 - 5.9 / 3.9 - 5.3 cm LV Systolic Diameter PLAX 3.2 cm IVS Diastolic Thickness 0.9 cm 0.6 - 1.0 / 0.6 - 0.9 cm LVPW Diastolic Thickness 0.9 cm 0.6 - 1.0 / 0.6 - 0.9 cm LV Relative Wall Thickness 0.4 RV Internal Dim ED PLAX 4.4 cm LVOT Diameter 1.8 cm Aortic Root Diameter 3.3 cm LA Systolic Diameter LX 3.6 cm 3.0 - 4.0 / 2.7 - 3.8 cm LV Diastolic Volume MOD 4C 97.4 cm??? LV Systolic Volume MOD 4C 46.9 cm??? LV Ejection Fraction MOD 4C 51.9 % LV Diastolic Length 4C 8.1 cm LV Systolic Length 4C 7.0 cm DOPPLER Mitral E Point Velocity 75.9 cm/s Mitral A Point Velocity 74.8 cm/s Mitral E to A Ratio 1.0 MV Deceleration Time 185.6 ms MV E' Velocity 6.7 cm/s Mitral E to MV E' Ratio 11.3 FINDINGS Left Ventricle Left ventricular ejection fraction is estimated at 55-60%. No obvious regional wall motion abnormalities. Left ventricular cavity size normal. Left ventricular wall thickness normal. Right Ventricle Normal right ventricular size and function. Unable to estimate the right ventricular systolic pressure. Right Atrium Normal right atrial size. Left Atrium Normal left atrial size. Mitral Valve Structurally normal mitral valve. Trace mitral regurgitation. Aortic Valve Trileaflet aortic valve. No aortic stenosis. No aortic regurgitation. Tricuspid Valve Structurally normal tricuspid valve. No tricuspid stenosis. No tricuspid regurgitation. Pulmonic Valve Structurally normal pulmonic valve. No pulmonic regurgitation. Pericardium No pericardial effusion. Aorta Normal size aortic root and proximal ascending aorta. CONCLUSIONS Left ventricular ejection fraction 55-60% Trace mitral regurgitation No tricuspid regurgitation No pericardial effusion Previewed by: Dr. Arron Alvarez DO (Electronically Signed) Final Date: 17 July 2024 15:47
[2024-07-17 16:15] LABS: Glucose,Whole Blood 351 mg/dL (70-110)
[2024-07-17 20:47] LABS: Glucose,Whole Blood 345 mg/dL (70-110)
--- NOTE | 2024-07-18 01:50 | PN ---
PROGRESS NOTE DATE OF SERVICE: 07/17/2024 SUBJECTIVE: This is an 83-year-old gentleman, who was admitted with acute DVT of the left leg, also had features of UTI. The patient had recent significant stroke also. The patient is receiving PT, OT. No fever. No cough. PAST MEDICAL HISTORY: Reviewed. REVIEW OF SYSTEMS: Could not be taken, the patient is confused. CURRENT MEDICATIONS: Reviewed. PHYSICAL EXAMINATION: VITAL SIGNS: Pulse is 78, blood pressure 110/60, respirations 16. CHEST: A few scattered rhonchi and crackles. ABDOMEN: Soft. NERVOUS SYSTEM: Nonfocal. LABORATORY DATA: WBC 15. Rest of the labs are noted. The culture showed presumptive Staph aureus and group D Enterococcus. ASSESSMENT: 1. Acute deep venous thrombosis of the left leg. 2. Acute urinary tract infection with a presumptive Staph aureus and group D Enterococcus. 3. History of recent stroke involving the right hemisphere. 4. Change in mental status, acute metabolic encephalopathy. 5. Chronic obstructive pulmonary disease. 6. Diabetes mellitus, type 2. 7. Hypertension. 8. Hyperlipidemia. RECOMMENDATIONS AND DISCUSSION: I recommend to continue current medications. Continue symptomatic treatment. Otherwise, at this time, I will recommend continue with anticoagulants. Continue with antibiotics. Follow the cultures. Further recommendations to follow. MMODL / IJN: [id number] /
[2024-07-18 06:09] LABS: Glucose,Whole Blood 57 mg/dL (70-110)
[2024-07-18 06:28] LABS: Glucose,Whole Blood 82 mg/dL (70-110)
[2024-07-18 08:57] LABS: Basophils # (A) 0.05 X 10*3/uL (0.00-0.10); Basophils % (A) 0.4 %; Eosinophils # (A) 0.44 X 10*3/uL (0.04-0.35); Eosinophils % (A) 3.2 %; HCT 28.4 % (39.6-50.0); HGB 8.8 g/dL (13.0-17.0); Lymphocytes # (A) 2.95 X 10*3/uL (0.90-5.00); Lymphocytes % (A) 21.2 %; MCH 29.1 pg (27.0-32.0); Monocytes % (A) 11.5 %; NRBC Per 100 WBC 0 X 10*3/uL (0.00-0.01); Neutrophils # (A) 8.79 X 10*3/uL (1.80-7.70); Neutrophils % (A) 63.1 %; Platelet Count 517 X 10*3/uL (140-440); RBC 3.02 X 10*6/uL (4.40-5.60); RDW 14.4 % (11.5-14.5); WBC 13.91 X 10*3/uL (4.50-10.00)
--- NOTE | 2024-07-18 08:58 | P.CNNES ---
History of Present Illness Consult date: 07/17/24 Requesting physician: Anoop Majano Reason for Consult: recent stroke in [facility]? History of Present Illness: Patient is a 83-year-old left-handed male came to the hospital by ambulance 2 days ago, 07/15/2024 at 6:25 PM for treatment of DVT in the left leg. He was diagnosed with DVT on 07/13/2024. Neurology was consulted because patient has history of CVA in the recent past. Patient was evaluated in the ER on 06/15/2024 with a head trauma, and altered mental status. Patient was found to have ischemic injury to the right temporal and parietal lobe. No significant midline shift, no evidence of intracranial hemorrhage. I personally reviewed CT head and agree with the findings. CTA of the head and neck at that time revealed abrupt cut off of the right middle cerebral artery inferior branch. Mild, 42% stenosis of the proximal right ICA caused by atherosclerotic plaque and calcifications. No evidence of aneurysm or dissection. Right MCA territory infarction. Patient was transferred to [facility] where he was treated conservatively. Patient's current vital signs are stable with blood pressure 129/66. Tmax is 100.3. Blood test shows WBC 15.92, hemoglobin 9.5, platelets are 484. Basic metabolic panel normal. Hemoglobin A1c 12.5, calcium 7.9. UA shows large amount of leukocyte Estrace, many WBC clumps, more than 182 WBCs. Urine cultures have grown more than 100,000 Staphylococcus aureus and group D Enterococcus. Patient currently on vancomycin. Patient used to be on Eliquis 2.5 mg twice daily, Brilinta 90 mg twice daily and aspirin 81 mg daily, but with recent DVT, hematology wants patient to go up to Eliquis 5 mg twice daily. This already has been started since yesterday morning 07/16/2024. Patient is tolerating well. Patient has history of diabetes, denies any tobacco or alcohol use. Patient at present states that he feels good. He does not know why he came to the hospital. States that his hearing is bad and he loses a lot of conversations. He does not remember details. Review of Systems All pertinent positive and negative review of system mentioned HPI, otherwise unremarkable. Past Medical History Past Medical History: COPD, Diabetes Mellitus, Hyperlipidemia, Hypertension History of Any Multi-Drug Resistant Organisms: None Reported Additional Past Surgical History / Comment(s): neck surgery Past Psychological History: No Psychological Hx Reported Smoking Status: Former smoker Past Alcohol Use History: None Reported Past Drug Use History: None Reported Medications and Allergies Home Medications Medication Instructions Recorded Confirmed Type Apixaban [Eliquis] 2.5 mg PO BID 07/16/24 07/16/24 History Aspirin 81 mg PO DAILY 07/16/24 07/16/24 History Atorvastatin [Lipitor] 80 mg PO HS 07/16/24 07/16/24 History Docusate [Colace] 100 mg PO Q12H 07/16/24 07/16/24 History INSULIN LISPRO (HumaLOG) [humaLOG] See Protocol SQ ACHS 07/16/24 07/16/24 History Insulin Glargine (Lantus) [Lantus 35 unit SQ HS 07/16/24 07/16/24 History Vial] Insulin Lispro 8 units SQ TID-W/MEALS 07/16/24 07/16/24 History Latanoprost [Latanoprost 0.005%] 1 drop BOTH EYES HS 07/16/24 07/16/24 History Levothyroxine Sodium [Synthroid] 125 mcg PO SUTUWEFRSA 07/16/24 07/16/24 History Levothyroxine Sodium [Synthroid] 150 mcg PO MOTH 07/16/24 07/16/24 History Melatonin 3 mg PO HS 07/16/24 07/16/24 History Midodrine HCl [ProAmantine] 2.5 mg PO TID-W/MEALS 07/16/24 07/16/24 History QUEtiapine FUMARATE [SEROquel] 25 mg PO Q12H 07/16/24 07/16/24 History Ticagrelor [Brilinta] 90 mg PO Q12H 07/16/24 07/16/24 History Allergies Allergy/AdvReac Type Severity Reaction Status Date / Time No Known Allergies Allergy Verified 07/16/24 08:59 Physical Examination - Vital Signs Vital Signs: Vital Signs Temp Pulse Pulse Resp BP BP BP 07/17/24 13:13 99.4 F 79 16 188/61 07/17/24 06:54 98.2 F 78 16 129/66 07/17/24 01:10 99.1 F 87 19 105/60 07/16/24 22:55 100.3 F H 86 18 123/65 07/16/24 22:32 98.9 F 83 16 129/57 07/16/24 20:47 99.9 F H 82 16 119/60 07/16/24 18:51 85 18 133/58 Pulse Ox 07/17/24 13:13 95 07/17/24 06:54 97 07/17/24 01:10 97 07/16/24 22:55 96 07/16/24 22:32 97 07/16/24 20:47 93 L 07/16/24 18:51 95 Intake and Output 07/17/24 07/17/24 07/17/24 06:59 14:59 22:59 Output Total 400 Balance -400 Output: Urine 400 Other: Voiding Method Indwelling Catheter Indwelling Catheter Patient is an elderly male, in no acute distress. Patient is alert awake. Patient believes it is the month of November, could not tell the year. He knows that he is in [facility] and that the name of the hospital he knows that he is in [facility] has been changed.. He knows that the president has recently been changed in the last few days but could not tell the name. Patient is able to name all objects presented like earlobe, pain and knuckles. Regarding repetition, he has some issues and makes mistakes. Speech is mildly dysarthric. Attention, concentration and fund of knowledge are slightly limited. On cranial nerve examination, pupils are equal, round and reacting to light, visual guerrero revealed complete left homonymous hemianopia. Extraocular muscles are intact with no nystagmus. Face is symmetric, tongue protrudes to the midline. Palatal elevation and sensation normal, hearing and shoulder shrug normal, facial sensation normal. On muscle strength testing, there is no pronator drift and the strength is normal in arms and legs distally and proximally. Deep tendon reflexes are symmetric 2 in the arms and legs and plantars are flat bilaterally. Sensory to touch is decreased on left side of the body, and he also neglects left side with double simultaneous stimulation. Cerebellar function showed no ataxia for [id number] testing. No dysdiadochokinesia. No ataxia for [id number] testing on either side. Tone and bulk of muscles normal. He has some wasting of interosseous muscles bilaterally, right more than left. Gait deferred.. On general examination, there is no carotid bruit or murmur, S1-S2 audible. Chest is clear on consultation. Abdomen is soft nontender. No organomegaly, bowel sounds present. Peripheral pulses are present. No peripheral edema. Results - Laboratory Findings CBC and BMP: 07/17/24 09:44 07/17/24 09:44 Abnormal Lab Findings: Abnormal Labs 07/15/24 07/15/24 07/15/24 20:09 20:09 20:09 WBC 21.2 H RBC 3.37 L Hgb 10.2 L D Hct 31.4 L MCHC RDW Plt Count 483 H D MPV Immature Gran # Neutrophils # 13.8 H Lymphocytes # 5.0 H Monocytes # 1.7 H Eosinophils # APTT 30.8 H Sodium 136 L BUN 24 H Glucose 52 L POC Glucose (mg/dL) Hemoglobin A1c Calcium AST 109 H Albumin 2.9 L Urine Protein Urine Blood Ur Leukocyte Esterase Urine RBC Urine WBC Urine WBC Clumps Urine Bacteria 07/15/24 07/16/24 07/16/24 20:56 04:45 14:05 WBC RBC Hgb Hct MCHC RDW Plt Count MPV Immature Gran # Neutrophils # Lymphocytes # Monocytes # Eosinophils # APTT Sodium BUN Glucose POC Glucose (mg/dL) 159 H 398 H Hemoglobin A1c Calcium AST Albumin Urine Protein 2+ H Urine Blood Large H Ur Leukocyte Esterase Large H Urine RBC >182 H Urine WBC >182 H Urine WBC Clumps Many H Urine Bacteria Moderate H 07/16/24 07/16/24 07/16/24 16:14 18:05 20:29 WBC RBC Hgb Hct MCHC RDW Plt Count MPV Immature Gran # Neutrophils # Lymphocytes # Monocytes # Eosinophils # APTT Sodium BUN Glucose POC Glucose (mg/dL) 410 H 347 H 269 H Hemoglobin A1c Calcium AST Albumin Urine Protein Urine Blood Ur Leukocyte Esterase Urine RBC Urine WBC Urine WBC Clumps Urine Bacteria 07/17/24 07/17/24 07/17/24 06:02 09:44 09:44 WBC 15.92 H RBC 3.22 L Hgb 9.5 L Hct 30.4 L MCHC 31.3 L RDW 14.6 H Plt Count 484 H MPV 9.1 L Immature Gran # 0.11 H Neutrophils # 11.55 H Lymphocytes # Monocytes # 1.74 H Eosinophils # 0.37 H APTT Sodium BUN Glucose POC Glucose (mg/dL) 60 L Hemoglobin A1c 12.5 H Calcium AST Albumin Urine Protein Urine Blood Ur Leukocyte Esterase Urine RBC Urine WBC Urine WBC Clumps Urine Bacteria 07/17/24 07/17/24 09:44 11:25 WBC RBC Hgb Hct MCHC RDW Plt Count MPV Immature Gran # Neutrophils # Lymphocytes # Monocytes # Eosinophils # APTT Sodium BUN Glucose 145 H POC Glucose (mg/dL) 153 H Hemoglobin A1c Calcium 7.9 L AST Albumin Urine Protein Urine Blood Ur Leukocyte Esterase Urine RBC Urine WBC Urine WBC Clumps Urine Bacteria Assessment and Plan Assessment: * 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 * Acute DVT left lower extremity * Sepsis with UTI * COPD * Diabetes * Hyperlipidemia * Hypertension * Anemia * Hypothyroidism Plan: * Neurologically clear to be placed on higher dose of Eliquis 5 mg twice daily (as a stroke happened > 30 days ago). Patient already been started on Eliquis higher dose since yesterday, tolerating it well. * Recommend checking CT head, for any neurological symptoms. If stable, no need for testing. * 2D echo revealed LVEF 55 to 60%. No obvious regional wall motion abnormalities. Normal left and right atrial size. Trace MR. No valvular abnormalities. * Hemoglobin A1c 12.5, consistent with poorly controlled diabetes. Recommend optimize control of diabetes to target A1c <7.0. (Previous A1c 16.3 on 07/02/2024) * Lipid panel with cholesterol 84, LDL 38, HDL 28 and triglycerides 85 on 07/02/2024. Continue high intensity statins. Patient on Lipitor 80 mg daily. * Patient's blood pressure is well-controlled. * TSH is elevated 22.6 on 07/02/2024. We will defer to IM. * Check B12, folate. * Recommend patient follow-up with neurologist outpatient. * Neurology will follow clinically. Thank you for the consult.
[2024-07-18 09:16] LABS: ALT 35 U/L (10-49); AST 56 U/L (14-35); Albumin 2.4 g/dL (3.8-4.9); Albumin/Globulin Ratio 0.75 Ratio (1.60-3.17); Alkaline Phosphatase 105 U/L (41-126); BUN/Creat Ratio 16.38 Ratio (12.00-20.00); Blood Urea Nitrogen 13.1 mg/dL (9.0-27.0); Calcium 7.9 mg/dL (8.7-10.3); Carbon Dioxide 22.4 mmol/L (21.6-31.8); Chloride 107 mmol/L (96-109); Globulin 3.2 g/dL (1.6-3.3); Glucose 120 mg/dL (70-110); Potassium 4.1 mmol/L (3.5-5.5); Sodium 138 mmol/L (135-145); Total Bilirubin 0.2 mg/dL (0.3-1.2); Total Protein 5.6 g/dL (6.2-8.2)
[2024-07-18 11:49] LABS: Glucose,Whole Blood 277 mg/dL (70-110)
[2024-07-18 11:59] LABS: Reticulocyte % 1.5 % (0.5-2.0)
--- NOTE | 2024-07-18 12:07 | P.PN ---
Subjective Progress Note Date: 07/18/24 Principal diagnosis: Reason for follow-up is sepsis and UTI Patient is a 83-year-old male with a past medical history significant for diabetes mellitus hypertension hyperlipidemia COPD patient has been sent to the ER for evaluation of increasing swelling to the left leg, patient also have mental status changes low-grade fever elevated white count concerning for sepsis secondary to UTI On today's evaluation that is 07/18/2024,the patient did have a low-grade fever of 99.8 F last night patient is afebrile this morning he is breathing comfortably on room air denies any chest pain shortness of breath, no abdominal pain or diarrhea. Patient white count is down to 13.7, creatinine 0.8 urine is growing Staph aureus and Enterococcus sensitivities pending blood cultures are pending Objective - Vital Signs Vital signs: Vital Signs Temp 98.1 F 07/18/24 06:54 Pulse 81 07/18/24 06:54 Resp 16 07/18/24 06:54 BP 121/64 07/18/24 06:54 Pulse Ox 95 07/18/24 06:54 FiO2 Intake & Output 07/17/24 07/18/24 07/18/24 18:59 06:59 18:59 Intake Total 710 480 Output Total 825 1050 600 Balance -115 -570 -600 Intake: Intake, IV Titration 250 Amount Vancomycin 1,250 mg In 250 Sodium Chloride 0.9% 250 ml @ 125 mls/hr IVPB Q12H [facility] Rx#:[id number] Oral 460 480 Output: Urine 825 1050 600 Other: Voiding Method Indwelling Catheter Indwelling Catheter # Bowel Movements 0 - Exam GENERAL DESCRIPTION: An elderly male lying in bed in no distress RESPIRATORY SYSTEM: Unlabored breathing , decreased breath sounds at bases HEART: S1 S2 regular rate and rhythm , ABDOMEN: Soft , no tenderness EXTREMITIES: No edema feet - Labs CBC & Chem 7: 07/18/24 03:35 07/18/24 03:35 Labs: Abnormal Lab Results - Last 24 Hours (Table) 07/17/24 07/17/24 07/17/24 Range/Units 09:44 09:44 09:44 WBC 15.92 H (4.50-10.00) X 10*3/uL RBC 3.22 L (4.40-5.60) X 10*6/uL Hgb 9.5 L (13.0-17.0) g/dL Hct 30.4 L (39.6-50.0) % MCHC 31.3 L (32.0-37.0) g/dL RDW 14.6 H (11.5-14.5) % Plt Count 484 H (140-440) X 10*3/uL MPV 9.1 L (9.5-12.2) FL Immature Gran # 0.11 H (0.00-0.04) X 10*3/uL Neutrophils # 11.55 H (1.80-7.70) X 10*3/uL Monocytes # 1.74 H (0.20-1.00) X 10*3/uL Eosinophils # 0.37 H (0.04-0.35) X 10*3/uL Glucose 145 H (74-99) mg/dL POC Glucose (mg/dL) (70-110) mg/dL Hemoglobin A1c 12.5 H (<=6.0) % Calcium 7.9 L (8.4-10.2) mg/dL Total Bilirubin (0.3-1.2) mg/dL AST (14-35) U/L Total Protein (6.2-8.2) g/dL Albumin (3.8-4.9) g/dL Albumin/Globulin Ratio (1.60-3.17) Ratio 07/17/24 07/17/24 07/17/24 Range/Units 11:25 16:13 20:45 WBC (4.50-10.00) X 10*3/uL RBC (4.40-5.60) X 10*6/uL Hgb (13.0-17.0) g/dL Hct (39.6-50.0) % MCHC (32.0-37.0) g/dL RDW (11.5-14.5) % Plt Count (140-440) X 10*3/uL MPV (9.5-12.2) FL Immature Gran # (0.00-0.04) X 10*3/uL Neutrophils # (1.80-7.70) X 10*3/uL Monocytes # (0.20-1.00) X 10*3/uL Eosinophils # (0.04-0.35) X 10*3/uL Glucose (74-99) mg/dL POC Glucose (mg/dL) 153 H 351 H 345 H (70-110) mg/dL Hemoglobin A1c (<=6.0) % Calcium (8.4-10.2) mg/dL Total Bilirubin (0.3-1.2) mg/dL AST (14-35) U/L Total Protein (6.2-8.2) g/dL Albumin (3.8-4.9) g/dL Albumin/Globulin Ratio (1.60-3.17) Ratio 07/18/24 07/18/24 07/18/24 Range/Units 03:35 03:35 06:08 WBC 13.91 H (4.50-10.00) X 10*3/uL RBC 3.02 L (4.40-5.60) X 10*6/uL Hgb 8.8 L (13.0-17.0) g/dL Hct 28.4 L (39.6-50.0) % MCHC 31.0 L (32.0-37.0) g/dL RDW (11.5-14.5) % Plt Count 517 H (140-440) X 10*3/uL MPV 9.0 L (9.5-12.2) FL Immature Gran # 0.08 H (0.00-0.04) X 10*3/uL Neutrophils # 8.79 H (1.80-7.70) X 10*3/uL Monocytes # 1.60 H (0.20-1.00) X 10*3/uL Eosinophils # 0.44 H (0.04-0.35) X 10*3/uL Glucose 120 H (74-99) mg/dL POC Glucose (mg/dL) 57 L (70-110) mg/dL Hemoglobin A1c (<=6.0) % Calcium 7.9 L (8.4-10.2) mg/dL Total Bilirubin 0.2 L (0.3-1.2) mg/dL AST 56 H (14-35) U/L Total Protein 5.6 L (6.2-8.2) g/dL Albumin 2.4 L (3.8-4.9) g/dL Albumin/Globulin Ratio 0.75 L (1.60-3.17) Ratio Microbiology - Last 24 Hours (Table) 07/15/24 22:13 Blood Culture - Preliminary Blood 07/15/24 20:56 Urine Culture - Preliminary Urine,Voided Presumptive Staph aureus Group D Enterococcus Assessment and Plan (1) Sepsis Current Visit: Yes Status: Acute Code(s): A41.9 - SEPSIS, UNSPECIFIED ORGANISM SNOMED Code(s): 28346882 (2) Urinary tract infection Current Visit: Yes Status: Acute Code(s): N39.0 - URINARY TRACT INFECTION, SITE NOT SPECIFIED SNOMED Code(s): 40996280 Plan: 1patient with features of sepsis, in this patient who did have a fever tachycardia elevated white count meeting currently for SIRS source is likely UTI in this patient who did have some confusion elevated white count and positive UA concerning for symptomatic UTI likely from enteric gram-negative pathogen patient currently do not have any obvious focus of infection lungs were clear to auscultation abdomen was soft and no evidence of any cellulitis or joint swelling. 2patient urine is growing group D Enterococcus and Staph aureus with sensitivities still pending, patient will be treated with vancomycin pharmacy to dose pending culture finalization Dictation was produced using [employer] dictation software. please excuse any grammatical, word or spelling errors. Time with Patient: Less than 30
[2024-07-18 14:36] VITALS: BMI 21.2
[2024-07-18 15:29] VITALS: RESP 18
[2024-07-18 15:33] LABS: % Iron Saturation 6.15 (15.00-50.00)
[2024-07-18 17:34] LABS: Glucose,Whole Blood 283 mg/dL (70-110)
[2024-07-18] MEDS: AMOXIC-POT CLAV 875-125MG 1 EACH TAB PO SCH (17:44)
[2024-07-18 20:59] LABS: Glucose,Whole Blood 280 mg/dL (70-110)
[2024-07-19 05:19] LABS: African American GFR (CKD) >90 (>60 ml/min/1.73 sqM); Non-African American GFR(CKD) 85 (>60 ml/min/1.73 sqM)
[2024-07-19 06:21] LABS: Basophils % (A) 0 %; Eosinophils # (A) 0.5 k/uL (0-0.7); Eosinophils % (A) 4 %; HCT 29.9 % (39.0-53.0); HGB 9.5 gm/dL (13.0-17.5); Hypochromasia Marked; Lymphocytes # (A) 2.6 k/uL (1.0-4.8); Lymphocytes % (A) 20 %; MCH 30.3 pg (25.0-35.0); MCHC 31.8 g/dL (31.0-37.0); MCV 95.4 fL (80.0-100.0); Mean Platelet Volume 7.1; Monocytes # (A) 0.8 k/uL (0-1.0); Monocytes % (A) 6 %; Neutrophils # (A) 8.8 k/uL (1.3-7.7); Neutrophils % (A) 68 %; Platelet Count 503 k/uL (150-450); RBC 3.14 m/uL (4.30-5.90); RDW 14.3 % (11.5-15.5); WBC 12.8 k/uL (3.8-10.6)
[2024-07-19 06:26] LABS: Glucose,Whole Blood 58 mg/dL (70-110)
[2024-07-19 07:00] LABS: Glucose,Whole Blood 54 mg/dL (70-110)
[2024-07-19 07:20] LABS: Glucose,Whole Blood 70 mg/dL (70-110)
--- NOTE | 2024-07-19 08:26 | CDI ---
Documentation Clarification Form Date: 07/19/2024 07:47:42 AM From: Ely Mirza RN CCDS Phone: [phone] Admit Date: 07/16/2024 02:03:00 PM Patient Name: Bill Slater Visit Number: [id number] Discharge Date: ATTENTION: The Clinical Documentation Specialists (CDI) and [facility] Coding Staff appreciate your assistance in clarifying documentation. Please respond to the clarification below the line at the bottom and electronically sign. The CDI & [facility] Coding staff will review the response and follow-up if needed. Please note: Queries are made part of the Legal Health Record. If you have any questions, please contact the author of this message via ITS. Doctor: Anoop Majano The patient has Sepsis is documented in the ID consult 07/16, which may lack sufficient clinical evidence/support in the medical record. Additional clarification is requested. History/Risk Factors: 83 year old Male was having falls and referred to [facility], the patient was found to have recent significant stroke involving the right hemisphere in [facility]. The patient went to rehab and was found to have left leg swelling with DVT sent to [facility] for evaluation and treatment. The patient also had altered mental status and features of UTI. Medical History: Recent stroke, falls, HTN, HLD, DM2 and COPD. 07/16, HP. Clinical Indicators: WBC, 07/15: 21.2 Urine culture 07/15: Enterococcus faecalis MRSA Blood culture 07/15: No growth after 48 hours Vitals signs, 07/15: B/P 119/55; HR 101; Temp 100.6 F Axillary, RR 20, SpO2 96% ra bmi 21.2kg Treatment: ID Consult 07/16: #1 Sepsis #2 Urinary tract infection. patient with features of sepsis, in this patient who did have a fever tachycardia elevated white count meeting currently for SIRS source is likely UTI Antibiotics: 07/15 Ceftriaxone ivpb x 1; 07/16 07/17 Ceftriaxone ivpb q24h; 07/18 Augmentin po q12h After work up and study please clarify which diagnosis is most appropriate for this patient? [ ] Sepsis, ruled out [ ] Sepsis, POA [ ] Other, please specify [ ] Unable to determine SIRS Criteria: 2 or more of the following may indicate SIRS Temperature < 96.8F (36C) or > 101.0F (38.3C) Heart Rate > 90 bpm Respiratory Rate > 20 breaths/min or PaCO2 < 32 mmHg White Blood Cell Count > 12,000 or < 4,000 cells/mm3 or > 10% bands (Template Last Reviewed: June 2022) Sepsis, ruled out MTDD
[2024-07-19] MEDS: FOLIC ACID 1 MG TAB PO SCH (08:56)
[2024-07-19] MEDS ORDERED: ZINC OXIDE PASTE (Z-GUARD) 1 APPLIC TOPICAL PRN (09:00)
--- NOTE | 2024-07-19 09:20 | P.PN ---
Subjective Progress Note Date: 07/18/24 This is an 83-year-old male who was recently admitted from [facility] with acute DVT of the left leg also with urinary tract infection, present on admission with sepsis. Patient also recently had a significant stroke and is ongoing PT/OT therapy. Patient will be returning to [facility] once cleared by consultations. Currently awaiting urine cultures to finalize. Patient is afebrile with no reports of chest pain or shortness of breath. Hematology/oncology following as well in regards to DVT and anticoagulation. Recommend PT/OT therapy evaluation and will discuss with case management in regards to discharge planning. Review of systems: Constitutional: No reports of fatigue, fever, or chills Cardiovascular: No reports of chest pain or palpitations Respiratory: No reports of shortness of breath or cough GI: reports of nausea, no reports of of vomiting, : No reports of dysuria or retention Neurovascular: reports of generalized weakness All medications have been reviewed PHYSICAL EXAMINATION: GENERAL: The patient is alert and oriented x2-3, Well developed, elderly appearing, thin built, ill-appearing HEENT: Pupils are round and equally reacting to light. EOMI. no scleral icterus. No conjunctival pallor. Normocephalic, atraumatic. No pharyngeal erythema. No thyromegaly. CARDIOVASCULAR: S1 and S2 muffled PULMONARY: diminished breath sounds bilaterally with no wheezing or rhonchi noted. ABDOMEN: soft. Nontender on exam. Thin. non-distended, normoactive bowel sounds. No palpable organomegaly. MUSCULOSKELETAL: No joint swelling or deformity. EXTREMITIES: No cyanosis, clubbing, or pedal edema. NEUROLOGICAL: Gross neurological examination did not reveal any focal deficits. Diffuse weakness SKIN: No rashes. Right foot great toe with some bruising under the nail bed and surrounding cuticle, ecchymosis noted and discoloration, positive pedal pulses noted Assessment: Acute DVT of the left leg Acute urinary tract infection with sepsis, present on admission, presumptive staph and group D Enterococcus preliminary on the cultures Leukocytosis on admission, secondary to above, trending down History of recent stroke involving the right hemisphere Change in mental status, acute metabolic encephalopathy possibly secondary to urinary tract infection, improving Chronic obstructive pulmonary disease history Diabetes mellitus, type II Hypertension Hyperlipidemia Moderate protein calorie malnutrition with a BMI of 21.2 GI prophylaxis DVT prophylaxis Full code Plan: Recommend to continue with current medications and management with infectious disease and neurology following. Patient is maintained on antibiotics in the form of vancomycin while waiting for cultures to finalize. Preliminary showing Enterococcus and will need finalized cultures to determine discharge antibiotics Blood cultures thus far negative White count remains elevated although is trending down and will follow-up with repeat labs Continue monitoring Accu-Cheks before meals and at bedtime and adjust insulins accordingly. Monitor for any periods of hypoglycemia as patient does not eat very much Plan will be for return to [facility] on discharge and will follow-up with case management if patient requires insurance authorization. Currently awaiting for Antibiotic recommendations per infectious disease pending finalized cultures. Possible discharge in the next 24 to 48 hours The impression and plan of care has been dictated by Pita Ceballos, nurse practitioner as directed. Dr. Melecio MD I have performed a history and examination and MDM of this patient, discussed the same with the dictator, and agree with the dictator's assessment and plan as written ,documented as a scribe. Based on total visit time, I have performed more than 50% of the visit. Any additional findings or plans will be noted. Objective - Vital Signs Vital signs: Vital Signs Temp 98.6 F 07/19/24 06:58 Pulse 75 07/19/24 06:58 Resp 18 07/19/24 06:58 BP 134/68 07/19/24 06:58 Pulse Ox 93 L 07/19/24 06:58 FiO2 Intake & Output 07/18/24 07/19/24 07/19/24 18:59 06:59 18:59 Intake Total 360 Output Total 1150 950 Balance -1150 -590 Weight 70.942 kg Intake: Oral 360 Output: Urine 1150 950 Other: Voiding Method Indwelling Catheter Indwelling Catheter - Labs CBC & Chem 7: 07/19/24 03:00 07/19/24 03:33 Labs: Abnormal Lab Results - Last 24 Hours (Table) 07/18/24 07/18/24 07/18/24 Range/Units 03:35 03:35 11:40 WBC (3.8-10.6) k/uL RBC (4.30-5.90) m/uL Hgb (13.0-17.5) gm/dL Hct (39.0-53.0) % Plt Count (150-450) k/uL Neutrophils # (1.3-7.7) k/uL Glucose 120 H (70-110) mg/dL POC Glucose (mg/dL) (70-110) mg/dL Calcium 7.9 L (8.7-10.3) mg/dL Iron 11 L (65-175) UG/DL TIBC 179 L (228-460) UG/DL % Saturation 6.15 L (15.00-50.00) Transferrin 128.0 L (204.0-354.0) mg/dL Ferritin 433.0 H (22.0-322.0) ng/mL Total Bilirubin 0.2 L (0.3-1.2) mg/dL AST 56 H (14-35) U/L Total Protein 5.6 L (6.2-8.2) g/dL Albumin 2.4 L (3.8-4.9) g/dL Albumin/Globulin Ratio 0.75 L (1.60-3.17) Ratio Vitamin B12 981.0 H (200.0-944.0) pg/mL 07/18/24 07/18/24 07/18/24 Range/Units 11:46 17:32 20:58 WBC (3.8-10.6) k/uL RBC (4.30-5.90) m/uL Hgb (13.0-17.5) gm/dL Hct (39.0-53.0) % Plt Count (150-450) k/uL Neutrophils # (1.3-7.7) k/uL Glucose (70-110) mg/dL POC Glucose (mg/dL) 277 H 283 H 280 H (70-110) mg/dL Calcium (8.7-10.3) mg/dL Iron (65-175) UG/DL TIBC (228-460) UG/DL % Saturation (15.00-50.00) Transferrin (204.0-354.0) mg/dL Ferritin (22.0-322.0) ng/mL Total Bilirubin (0.3-1.2) mg/dL AST (14-35) U/L Total Protein (6.2-8.2) g/dL Albumin (3.8-4.9) g/dL Albumin/Globulin Ratio (1.60-3.17) Ratio Vitamin B12 (200.0-944.0) pg/mL 07/19/24 07/19/24 07/19/24 Range/Units 03:00 06:25 06:59 WBC 12.8 H (3.8-10.6) k/uL RBC 3.14 L (4.30-5.90) m/uL Hgb 9.5 L (13.0-17.5) gm/dL Hct 29.9 L (39.0-53.0) % Plt Count 503 H (150-450) k/uL Neutrophils # 8.8 H (1.3-7.7) k/uL Glucose (70-110) mg/dL POC Glucose (mg/dL) 58 L 54 L (70-110) mg/dL Calcium (8.7-10.3) mg/dL Iron (65-175) UG/DL TIBC (228-460) UG/DL % Saturation (15.00-50.00) Transferrin (204.0-354.0) mg/dL Ferritin (22.0-322.0) ng/mL Total Bilirubin (0.3-1.2) mg/dL AST (14-35) U/L Total Protein (6.2-8.2) g/dL Albumin (3.8-4.9) g/dL Albumin/Globulin Ratio (1.60-3.17) Ratio Vitamin B12 (200.0-944.0) pg/mL Microbiology - Last 24 Hours (Table) 07/15/24 20:56 Urine Culture - Final Urine,Voided Enterococcus faecalis Methicillin resist S. aureus 07/15/24 22:13 Blood Culture - Preliminary Blood
--- NOTE | 2024-07-19 11:28 | P.PN ---
Subjective Progress Note Date: 07/18/24 Patient was seen for a follow-up. Patient states he feels okay. Denies any headache. Denies any numbness or tingling or any focal weakness. Patient is laying comfortably in the bed. Objective - Vital Signs Vital signs: Vital Signs Temp 98.9 F 07/18/24 14:00 Pulse 87 07/18/24 14:00 Resp 18 07/18/24 14:00 BP 146/69 07/18/24 14:00 Pulse Ox 93 L 07/18/24 14:00 FiO2 Intake & Output 07/17/24 07/18/24 07/18/24 18:59 06:59 18:59 Intake Total 710 480 Output Total 825 1050 600 Balance -115 -570 -600 Weight 70.942 kg Intake: Intake, IV Titration 250 Amount Vancomycin 1,250 mg In 250 Sodium Chloride 0.9% 250 ml @ 125 mls/hr IVPB Q12H [facility] Rx#:[id number] Oral 460 480 Output: Urine 825 1050 600 Other: Voiding Method Indwelling Catheter Indwelling Catheter Indwelling Catheter # Bowel Movements 0 - Exam Patient is alert and awake. He knows that he is in [facility] in [facility]. He could not tell the month or the year. He states the current president is Denny. Rest of the examination is unchanged. - Labs CBC & Chem 7: 07/19/24 03:00 07/19/24 03:33 Labs: Abnormal Lab Results - Last 24 Hours (Table) 07/17/24 07/18/24 07/18/24 Range/Units 20:45 03:35 03:35 WBC 13.91 H (4.50-10.00) X 10*3/uL RBC 3.02 L (4.40-5.60) X 10*6/uL Hgb 8.8 L (13.0-17.0) g/dL Hct 28.4 L (39.6-50.0) % MCHC 31.0 L (32.0-37.0) g/dL Plt Count 517 H (140-440) X 10*3/uL MPV 9.0 L (9.5-12.2) FL Immature Gran # 0.08 H (0.00-0.04) X 10*3/uL Neutrophils # 8.79 H (1.80-7.70) X 10*3/uL Monocytes # 1.60 H (0.20-1.00) X 10*3/uL Eosinophils # 0.44 H (0.04-0.35) X 10*3/uL Glucose 120 H (70-110) mg/dL POC Glucose (mg/dL) 345 H (70-110) mg/dL Calcium 7.9 L (8.7-10.3) mg/dL Iron (65-175) UG/DL TIBC (228-460) UG/DL % Saturation (15.00-50.00) Transferrin (204.0-354.0) mg/dL Ferritin (22.0-322.0) ng/mL Total Bilirubin 0.2 L (0.3-1.2) mg/dL AST 56 H (14-35) U/L Total Protein 5.6 L (6.2-8.2) g/dL Albumin 2.4 L (3.8-4.9) g/dL Albumin/Globulin Ratio 0.75 L (1.60-3.17) Ratio 07/18/24 07/18/24 07/18/24 Range/Units 06:08 11:40 11:46 WBC (4.50-10.00) X 10*3/uL RBC (4.40-5.60) X 10*6/uL Hgb (13.0-17.0) g/dL Hct (39.6-50.0) % MCHC (32.0-37.0) g/dL Plt Count (140-440) X 10*3/uL MPV (9.5-12.2) FL Immature Gran # (0.00-0.04) X 10*3/uL Neutrophils # (1.80-7.70) X 10*3/uL Monocytes # (0.20-1.00) X 10*3/uL Eosinophils # (0.04-0.35) X 10*3/uL Glucose (70-110) mg/dL POC Glucose (mg/dL) 57 L 277 H (70-110) mg/dL Calcium (8.7-10.3) mg/dL Iron 11 L (65-175) UG/DL TIBC 179 L (228-460) UG/DL % Saturation 6.15 L (15.00-50.00) Transferrin 128.0 L (204.0-354.0) mg/dL Ferritin 433.0 H (22.0-322.0) ng/mL Total Bilirubin (0.3-1.2) mg/dL AST (14-35) U/L Total Protein (6.2-8.2) g/dL Albumin (3.8-4.9) g/dL Albumin/Globulin Ratio (1.60-3.17) Ratio Microbiology - Last 24 Hours (Table) 07/15/24 20:56 Urine Culture - Final Urine,Voided Enterococcus faecalis Methicillin resist S. 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 * Acute DVT left lower extremity * Sepsis with UTI * COPD * Diabetes * Hyperlipidemia * Hypertension * Anemia * Hypothyroidism Plan: * Neurologically clear to be placed on higher dose of Eliquis 5 mg twice daily (as a stroke happened > 30 days ago). Patient already been started on Eliquis higher dose since 07/16/2024, tolerating it well. * Recommend checking CT head, for any neurological symptoms. * 2D echo revealed LVEF 55 to 60%. No obvious regional wall motion abnormalities. Normal left and right atrial size. Trace MR. No valvular abnormalities. * Hemoglobin A1c 12.5, consistent with poorly controlled diabetes. Recommend optimize control of diabetes to target A1c <7.0. (Previous A1c 16.3 on 07/02/2024) * Lipid panel with cholesterol 84, LDL 38, HDL 28 and triglycerides 85 on 07/02/2024. Continue high intensity statins. Patient on Lipitor 80 mg daily. * Patient's blood pressure is well-controlled. * TSH is elevated 22.6 on 07/02/2024. We will defer to IM. * B12 981, folate 7.60. Patient started on folic acid 1 mg daily. * Recommend patient follow-up with neurologist outpatient. * Neurologically clear. Please call neurology if any other concerns.
[2024-07-19 11:40] LABS: Glucose,Whole Blood 223 mg/dL (70-110)
--- NOTE | 2024-07-19 12:53 | P.PN ---
Subjective Progress Note Date: 07/19/24 Principal diagnosis: Reason for follow-up is sepsis and UTI Patient is a 83-year-old male with a past medical history significant for diabetes mellitus hypertension hyperlipidemia COPD patient has been sent to the ER for evaluation of increasing swelling to the left leg, patient also have mental status changes low-grade fever elevated white count concerning for sepsis secondary to UTI On today's evaluation that is 07/19/2024,the patient remains to be afebrile, patient is on room air not requiring supplemental oxygen and denies any shortness of breath no chest pain or cough.Patient denies having any nausea or vomiting, no abdominal pain and no diarrhea has been reported, no new symptoms. Patient white count is 12.8 urine is growing Enterococcus faecalis and MRSA blood culture negative Objective - Vital Signs Vital signs: Vital Signs Temp 98.6 F 07/19/24 06:58 Pulse 75 07/19/24 06:58 Resp 18 07/19/24 06:58 BP 134/68 07/19/24 06:58 Pulse Ox 93 L 07/19/24 06:58 FiO2 Intake & Output 07/18/24 07/19/24 07/19/24 18:59 06:59 18:59 Intake Total 360 Output Total 1150 950 Balance -1150 -590 Weight 70.942 kg Intake: Oral 360 Output: Urine 1150 950 Other: Voiding Method Indwelling Catheter Indwelling Catheter - Exam GENERAL DESCRIPTION: An elderly male lying in bed in no distress RESPIRATORY SYSTEM: Unlabored breathing , decreased breath sounds at bases HEART: S1 S2 regular rate and rhythm , ABDOMEN: Soft , no tenderness EXTREMITIES: No edema feet, bruising to the right big toe but no open wound or redness - Labs CBC & Chem 7: 07/19/24 03:00 07/19/24 03:33 Labs: Abnormal Lab Results - Last 24 Hours (Table) 07/18/24 07/18/24 07/18/24 Range/Units 03:35 11:40 11:46 WBC (3.8-10.6) k/uL RBC (4.30-5.90) m/uL Hgb (13.0-17.5) gm/dL Hct (39.0-53.0) % Plt Count (150-450) k/uL Neutrophils # (1.3-7.7) k/uL POC Glucose (mg/dL) 277 H (70-110) mg/dL Iron 11 L (65-175) UG/DL TIBC 179 L (228-460) UG/DL % Saturation 6.15 L (15.00-50.00) Transferrin 128.0 L (204.0-354.0) mg/dL Ferritin 433.0 H (22.0-322.0) ng/mL Vitamin B12 981.0 H (200.0-944.0) pg/mL 07/18/24 07/18/24 07/19/24 Range/Units 17:32 20:58 03:00 WBC 12.8 H (3.8-10.6) k/uL RBC 3.14 L (4.30-5.90) m/uL Hgb 9.5 L (13.0-17.5) gm/dL Hct 29.9 L (39.0-53.0) % Plt Count 503 H (150-450) k/uL Neutrophils # 8.8 H (1.3-7.7) k/uL POC Glucose (mg/dL) 283 H 280 H (70-110) mg/dL Iron (65-175) UG/DL TIBC (228-460) UG/DL % Saturation (15.00-50.00) Transferrin (204.0-354.0) mg/dL Ferritin (22.0-322.0) ng/mL Vitamin B12 (200.0-944.0) pg/mL 07/19/24 07/19/24 Range/Units 06:25 06:59 WBC (3.8-10.6) k/uL RBC (4.30-5.90) m/uL Hgb (13.0-17.5) gm/dL Hct (39.0-53.0) % Plt Count (150-450) k/uL Neutrophils # (1.3-7.7) k/uL POC Glucose (mg/dL) 58 L 54 L (70-110) mg/dL Iron (65-175) UG/DL TIBC (228-460) UG/DL % Saturation (15.00-50.00) Transferrin (204.0-354.0) mg/dL Ferritin (22.0-322.0) ng/mL Vitamin B12 (200.0-944.0) pg/mL Microbiology - Last 24 Hours (Table) 07/15/24 20:56 Urine Culture - Final Urine,Voided Enterococcus faecalis Methicillin resist S. aureus 07/15/24 22:13 Blood Culture - Preliminary Blood Assessment and Plan (1) Sepsis Current Visit: Yes Status: Acute Code(s): A41.9 - SEPSIS, UNSPECIFIED ORGANISM SNOMED Code(s): 83480445 (2) Urinary tract infection Current Visit: Yes Status: Acute Code(s): N39.0 - URINARY TRACT INFECTION, SITE NOT SPECIFIED SNOMED Code(s): 76613912 Plan: 1patient with features of sepsis, in this patient who did have a fever tachycardia elevated white count meeting currently for SIRS source is likely UTI in this patient who did have some confusion elevated white count and positive UA concerning for symptomatic UTI likely from enteric gram-negative pathogen patient currently do not have any obvious focus of infection lungs were clear to auscultation abdomen was soft and no evidence of any cellulitis or joint swelling. 2patient urine is growing group D Enterococcus and MRSA, patient will get a midline and a 7-day course of daptomycin and discharged to the long-term discussed with the [employer] for admitting team 3patient did have some bruising to the right big toe but no evidence of any active cellulitis or wound we will watch the area closely Dictation was produced using [employer] dictation software. please excuse any grammatical, word or spelling errors.
[2024-07-19] MEDS: ZINC OXIDE PASTE (Z-GUARD) 1 APPLIC TOPICAL ONE (14:30)
--- NOTE | 2024-07-19 15:22 | P.DS ---
Providers Date of admission: 07/16/24 14:03 Expected date of discharge: 07/19/24 Attending physician: Aretha Fink MD Consults: 07/15/24 22:46 Consult Physician Urgent Consulting Provider: Yoel Raymundo Consult Reason/Comments: DVT on Eliquis Do you want consulting provider notified?: Yes 07/16/24 09:32 Consult Physician Urgent Consulting Provider: Sorin Moody Consult Reason/Comments: uti Do you want consulting provider notified?: Yes 07/16/24 13:58 Consult Physician Routine Consulting Provider: Carolynn Ruggiero Consult Reason/Comments: recent stroke in [facility]? Do you want consulting provider notified?: Yes Primary care physician: Stated None Hospital Course: Final diagnosis Acute DVT of the left leg Acute urinary tract infection with sepsis, present on admission, presumptive staph and group D Enterococcus preliminary on the cultures Leukocytosis on admission, secondary to above, trending down Right great toe bruising with no evidence of infection or cellulitis, appears to have stubbed the toe with old blood noted under the toenail History of recent stroke involving the right hemisphere Change in mental status, acute metabolic encephalopathy possibly secondary to urinary tract infection, improving Chronic obstructive pulmonary disease history Diabetes mellitus, type II Hypertension Hyperlipidemia Moderate protein calorie malnutrition with a BMI of 21.2 GI prophylaxis DVT prophylaxis Full code Discharge disposition Patient is being discharged in a stable condition with guarded prognosis to [facility] on [facility]. Patient will follow-up with Dr. Vasquez in the outpatient setting upon discharge. Patient is to continue with a midline and IV daptomycin daily for 1 week and outpatient follow-up with hematology as scheduled. Total time taken is greater than 35 minutes. Hospital course This is a 83-year-old male who was recently admitted with with acute urinary tract infection with sepsis, present on admission as patient did have an eleva ciro white count along with tachycardia and fevers. Patient was at [facility] for recent CVA undergoing therapy. Patient also with indwelling Larsen catheter for retention will continue for now and may need outpatient follow-up with urologist. Possibly trial void in the outpatient setting. Patient urine cultures finalized with MRSA and Enterococcus , blood cultures have been negative. Patient is being followed by infectious disease recommending a 1 week course of IV daptomycin on discharge. Patient did receive a midline and has been given first dose here and will be returning to [facility] for continued strength and mobility. Please refer to consultation notes for further HPI. Currently no reports of chest pain, shortness of breath, or palpitations. Patient is afebrile. No reports of nausea or vomiting and patient is tolerating diet. Patient will be going to [facility] on the [address] today. Guarded prognosis and high risk for readmissions given significant comorbidities. Physical exam: Gen: This is a 83-year-old male who is awake, alert and oriented x 2-3, thin built, elderly appearing HEENT: Head is atraumatic, normocephalic. Pupils equal, round. Sclerae is anicteric. NECK: Supple. No JVD. No lymphadenopathy. No thyromegaly. LUNGS: Clear to auscultation. No wheezes or rhonchi. No intercostal retractions. HEART: Regular rate and rhythm. No murmur. ABDOMEN: Soft. Bowel sounds are present. No masses. No tenderness. EXTREMITIES: No pedal edema. No calf tenderness. Right great toe with some old blood noted behind the nail and surrounding bruising, no cellulitis or redness noted NEUROLOGICAL: Patient is awake, alert and oriented x2. Cranial nerves 2 through 12 are grossly intact. Diffusely weak Please refer to medication reconciliation sheet for a list of medications. The impression and plan of care has been dictated by Pita Ceballos, Nurse Practitioner as directed. Dr. Melecio MD I have performed a history and examination and MDM of this patient, discussed the same with the dictator, and agree with the dictator's assessment and plan as written ,documented as a scribe. Based on total visit time, I have performed more than 50% of the visit. Patient Condition at Discharge: Stable Plan - Discharge Summary New Discharge Prescriptions: New Apixaban [Eliquis] 5 mg PO BID tab DAPTOmycin [Cubicin] 300 mg IVPB Q24HR 7 Days #7 each Folic Acid 1 mg PO DAILY tab Acetaminophen Tab [Tylenol] 650 mg PO Q6HR PRN tab PRN Reason: Mild Pain Or Fever > 100.5 Acetaminophen-Codeine 300-30mg [Tylenol w/codeine #3] 1 each PO Q4HR PRN #4 tab PRN Reason: Moderate Pain (Scale 4 To 6) Continue QUEtiapine FUMARATE [SEROquel] 25 mg PO Q12H Midodrine HCl [ProAmantine] 2.5 mg PO TID-W/MEALS Levothyroxine Sodium [Synthroid] 125 mcg PO SUTUWEFRSA Atorvastatin [Lipitor] 80 mg PO HS Melatonin 3 mg PO HS Levothyroxine Sodium [Synthroid] 150 mcg PO MOTH Latanoprost [Latanoprost 0.005%] 1 drop BOTH EYES HS INSULIN LISPRO (HumaLOG) [humaLOG] See Protocol SQ ACHS Insulin Glargine (Lantus) [Lantus Vial] 35 unit SQ HS Docusate [Colace] 100 mg PO Q12H Aspirin 81 mg PO DAILY Discontinued Ticagrelor [Brilinta] 90 mg PO Q12H INSULIN LISPRO (HumaLOG) [HumaLOG] 8 units SQ TID-W/MEALS Apixaban [Eliquis] 2.5 mg PO BID Discharge Medication List Aspirin 81 mg PO DAILY 07/16/24 [History] Atorvastatin [Lipitor] 80 mg PO HS 07/16/24 [History] Docusate [Colace] 100 mg PO Q12H 07/16/24 [History] INSULIN LISPRO (HumaLOG) [humaLOG] See Protocol SQ ACHS 07/16/24 [History] Insulin Glargine (Lantus) [Lantus Vial] 35 unit SQ HS 07/16/24 [History] Latanoprost [Latanoprost 0.005%] 1 drop BOTH EYES HS 07/16/24 [History] Levothyroxine Sodium [Synthroid] 125 mcg PO SUTUWEFRSA 07/16/24 [History] Levothyroxine Sodium [Synthroid] 150 mcg PO MOTH 07/16/24 [History] Melatonin 3 mg PO HS 07/16/24 [History] Midodrine HCl [ProAmantine] 2.5 mg PO TID-W/MEALS 07/16/24 [History] QUEtiapine FUMARATE [SEROquel] 25 mg PO Q12H 07/16/24 [History] Acetaminophen Tab [Tylenol] 650 mg PO Q6HR PRN tab 07/19/24 [Rx] Acetaminophen-Codeine 300-30mg [Tylenol w/codeine #3] 1 each PO Q4HR PRN #4 tab 07/19/24 [Rx] Apixaban [Eliquis] 5 mg PO BID tab 07/19/24 [Rx] DAPTOmycin [Cubicin] 300 mg IVPB Q24HR 7 Days #7 each 07/19/24 [Rx] Folic Acid 1 mg PO DAILY tab 07/19/24 [Rx] Follow up Appointment(s)/Referral(s): None,Stated [Primary Care Provider] - 1-2 days Activity/Diet/Wound Care/Special Instructions: [facility] as tolerated Patient has a midline and will continue with IV antibiotics in the form of daptomycin for 7 days per ID recommendations Patient to continue with indwelling Larsen catheter for retention Patient to follow-up with Dr. Reyes outpatient Patient to continue on Eliquis 5 mg twice daily and outpatient follow-up with hematology Discharge Disposition: TRANSFER TO SNF/ECF
[2024-07-19 15:30] VITALS: BP 135/67; PULSE 84; TEMP 99.1
--- NOTE | 2024-07-20 09:22 | P.PN ---
Subjective Progress Note Date: 07/19/24 Patient was seen for a follow-up. Patient states he feels okay. Denies any headache. Denies dizziness. Patient is laying comfortably in the bed. Patient is slightly somnolent. Objective - Vital Signs Vital signs: Vital Signs Temp 98.6 F 07/19/24 06:58 Pulse 75 07/19/24 06:58 Resp 18 07/19/24 06:58 BP 134/68 07/19/24 06:58 Pulse Ox 93 L 07/19/24 06:58 FiO2 Intake & Output 07/18/24 07/19/24 07/19/24 18:59 06:59 18:59 Intake Total 360 Output Total 1150 950 Balance -1150 -590 Weight 70.942 kg Intake: Oral 360 Output: Urine 1150 950 Other: Voiding Method Indwelling Catheter Indwelling Catheter Indwelling Catheter - Exam Patient is alert and awake. He knows that he is in [facility] in [place]. He could not tell the month or the year. He states the current president is Denny. Rest of the examination is unchanged. - Labs CBC & Chem 7: 07/19/24 03:00 07/19/24 03:33 Labs: Abnormal Lab Results - Last 24 Hours (Table) 07/18/24 07/18/24 07/18/24 Range/Units 03:35 11:40 17:32 WBC (3.8-10.6) k/uL RBC (4.30-5.90) m/uL Hgb (13.0-17.5) gm/dL Hct (39.0-53.0) % Plt Count (150-450) k/uL Neutrophils # (1.3-7.7) k/uL POC Glucose (mg/dL) 283 H (70-110) mg/dL Iron 11 L (65-175) UG/DL TIBC 179 L (228-460) UG/DL % Saturation 6.15 L (15.00-50.00) Transferrin 128.0 L (204.0-354.0) mg/dL Ferritin 433.0 H (22.0-322.0) ng/mL Vitamin B12 981.0 H (200.0-944.0) pg/mL 07/18/24 07/19/24 07/19/24 Range/Units 20:58 03:00 06:25 WBC 12.8 H (3.8-10.6) k/uL RBC 3.14 L (4.30-5.90) m/uL Hgb 9.5 L (13.0-17.5) gm/dL Hct 29.9 L (39.0-53.0) % Plt Count 503 H (150-450) k/uL Neutrophils # 8.8 H (1.3-7.7) k/uL POC Glucose (mg/dL) 280 H 58 L (70-110) mg/dL Iron (65-175) UG/DL TIBC (228-460) UG/DL % Saturation (15.00-50.00) Transferrin (204.0-354.0) mg/dL Ferritin (22.0-322.0) ng/mL Vitamin B12 (200.0-944.0) pg/mL 07/19/24 07/19/24 Range/Units 06:59 11:38 WBC (3.8-10.6) k/uL RBC (4.30-5.90) m/uL Hgb (13.0-17.5) gm/dL Hct (39.0-53.0) % Plt Count (150-450) k/uL Neutrophils # (1.3-7.7) k/uL POC Glucose (mg/dL) 54 L 223 H (70-110) mg/dL Iron (65-175) UG/DL TIBC (228-460) UG/DL % Saturation (15.00-50.00) Transferrin (204.0-354.0) mg/dL Ferritin (22.0-322.0) ng/mL Vitamin B12 (200.0-944.0) pg/mL Microbiology - Last 24 Hours (Table) 07/15/24 22:13 Blood Culture - Preliminary Blood 07/15/24 20:56 Urine Culture - Final Urine,Voided Enterococcus faecalis Methicillin resist S. 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 * Acute DVT left lower extremity * Sepsis with UTI * COPD * Diabetes * Hyperlipidemia * Hypertension * Anemia * Hypothyroidism Plan: * Neurologically clear to be placed on higher dose of Eliquis 5 mg twice daily (as a stroke happened > 30 days ago). Patient already been started on Eliquis higher dose since 07/16/2024, tolerating it well. * Recommend checking CT head, for any new neurological symptoms. * 2D echo revealed LVEF 55 to 60%. No obvious regional wall motion abnormalities. Normal left and right atrial size. Trace MR. No valvular abn ormalities. * Hemoglobin A1c 12.5, consistent with poorly controlled diabetes. Recommend optimize control of diabetes to target A1c <7.0. (Previous A1c 16.3 on 07/02/2024) * Lipid panel with cholesterol 84, LDL 38, HDL 28 and triglycerides 85 on 07/02/2024. Continue high intensity statins. Patient on Lipitor 80 mg daily. * Patient's blood pressure is well-controlled. * TSH is elevated 22.6 on 07/02/2024. We will defer to IM. * B12 981, folate 7.60. Patient started on folic acid 1 mg daily. * Recommend patient follow-up with neurologist outpatient. * Neurologically clear. Please call neurology if any other concerns.
== END 2024-07-19 17:20 | DRG 299 ==
LOC: EC 18:25 → 5NMEDONC 22:53 → OBSVTOIN 07-16 14:03 → 5NMEDONC 07-16 18:15 → 4SSUR 07-16 19:45
PROVIDERS: ADMIT Internal Medicine; ATTEND Internal Medicine
PROC: 05HC33Z Insertion of Infusion Device into Left Basilic Vein, Percutaneous Approach (ICD-10-PCS; principal; 2024-07-19 12:15)
DX: I82.412 Acute embolism and thrombosis of left femoral vein (principal); G93.41 Metabolic encephalopathy; R47.01 Aphasia; R41.4 Neurologic neglect syndrome; B95.2 Enterococcus as the cause of diseases classified elsewhere; H53.462 Homonymous bilateral field defects, left side; E11.9 Type 2 diabetes mellitus without complications; E03.9 Hypothyroidism, unspecified; F03.90 Unspecified dementia, unspecified severity, without behavioral disturbance, psychotic disturbance, mood disturbance, and anxiety; J44.9 Chronic obstructive pulmonary disease, unspecified; I10 Essential (primary) hypertension; D64.9 Anemia, unspecified; I65.21 Occlusion and stenosis of right carotid artery; N39.0 Urinary tract infection, site not specified; I69.398 Other sequelae of cerebral infarction; B95.61 Methicillin susceptible Staphylococcus aureus infection as the cause of diseases classified elsewhere; E78.5 Hyperlipidemia, unspecified; H53.8 Other visual disturbances; Z79.01 Long term (current) use of anticoagulants; Z79.02 Long term (current) use of antithrombotics/antiplatelets; Z79.4 Long term (current) use of insulin; Z79.82 Long term (current) use of aspirin; Z79.890 Hormone replacement therapy; Z79.899 Other long term (current) drug therapy; Z86.718 Personal history of other venous thrombosis and embolism; Z87.891 Personal history of nicotine dependence
CPT/HCPCS: 36410; 36415; 71046; 76937; 80048; 80053; 81001; 82565; 82607; 82728; 82746; 83036; 83540; 83550; 83605; 83921; 85025; 85045; 85610; 85730; 87040; 87077; 87086; 87186; 87636; 93306; 96361; 96365; 96367; 96375; 99291

== ENCOUNTER 2024-08-06 22:58 | Observation (INO) | payer MEDICARE ==
[2024-08-06] MEDS: MIDAZOLAM 2 MG/2 ML VIAL IM ONE (23:41)
--- NOTE | 2024-08-06 23:42 | ED ---
General Adult HPI - General Chief complaint: Skin/Abscess/Foreign Body Stated complaint: Catheter Malfunction Time Seen by Provider: 08/06/24 23:09 Source: EMS Mode of arrival: EMS Limitations: altered mental status - History of Present Illness Initial comments: Patient is an 83-year-old gentleman presenting from home after removing his suprapubic catheter. History is limited by patient's current mental status. He is currently oriented x 1 only. Patient is son is reportedly on his way to provide her the history. - Related Data Home Medications Medication Instructions Recorded Confirmed Aspirin 81 mg PO DAILY 07/16/24 08/07/24 Atorvastatin [Lipitor] 80 mg PO HS 07/16/24 08/07/24 Docusate [Colace] 100 mg PO Q12H 07/16/24 08/07/24 INSULIN LISPRO (HumaLOG) [humaLOG] See Protocol SQ ACHS 07/16/24 08/07/24 Latanoprost [Latanoprost 0.005%] 1 drop BOTH EYES HS 07/16/24 08/07/24 Levothyroxine Sodium [Synthroid] 125 mcg PO SUTUWEFRSA 07/16/24 08/07/24 Levothyroxine Sodium [Synthroid] 150 mcg PO MOTH 07/16/24 08/07/24 Melatonin 3 mg PO HS 07/16/24 08/07/24 Midodrine HCl [ProAmantine] 2.5 mg PO TID-W/MEALS 07/16/24 08/07/24 Acetaminophen-Codeine 300-30mg 1 tab PO Q4HR PRN 07/25/24 08/07/24 [Tylenol w/codeine #3] Previous Rx's Medication Instructions Recorded Apixaban [Eliquis] 5 mg PO BID tab 07/19/24 Fluconazole [Diflucan] 100 mg PO DAILY 19 Days #10 tab 08/03/24 Insulin Detemir (Levemir) [Levemir] 20 unit SQ HS #0 each 08/03/24 Nystatin 100,000 Unit/gm Powd 1 applic TOPICAL TID 10 Days #250 08/03/24 [Mycostatin Powder] each Piperacillin-Tazobactam [Zosyn] 3.375 gm IVPB Q8HR 10 Days #0 each 08/03/24 QUEtiapine [SEROquel] 50 mg PO HS 30 Days #30 tab 08/03/24 Allergies Allergy/AdvReac Type Severity Reaction Status Date / Time No Known Allergies Allergy Verified 08/07/24 15:52 Review of Systems ROS Statement: Those systems with pertinent positive or pertinent negative responses have been documented in the HPI. ROS Other: All systems not noted in ROS Statement are negative. Limitations: ROS unobtainable due to patients medical condition Past Medical History Past Medical History: COPD, Diabetes Mellitus, Hyperlipidemia, Hypertension History of Any Multi-Drug Resistant Organisms: MRSA Date of last positivie culture/infection: 07/15/24 MDRO Source:: urine Additional Past Surgical History / Comment(s): neck surgery Past Anesthesia/Blood Transfusion Reactions: No Reported Reaction Past Psychological History: No Psychological Hx Reported Smoking Status: Former smoker Past Alcohol Use History: None Reported Past Drug Use History: None Reported General Exam - General Exam Comments Initial Comments: PE: CONSTITUTIONAL: [no apparent distress, chronically ill-appearing, nontoxic] SKIN: [warm, dry, no jaundice, hives or petechiae. Erythema on right lateral ba se of penis, with full thickness wound base of penile shift at 9 o'clock ronald, scant discharge around base of wound, no purulent exudate, no crepitus palpated, scant erythema at suprapubic cath without swelling or discharge] EYES:[ pupils are equally round, extraocular movements intact without nystagmus, clear conjunctiva, non-icteric sclera] HENT: [normocephalic, atraumatic, moist mucus membranes, oropharynx clear without exudates] NECK: , [Full range of motion, normal appearance] PULMONARY: [clear to auscultation without wheezes, rhonchi, or rales, normal excursion, no accessory muscle use and no stridor] CARDIOVASCULAR:[ regular rate, rhythm, normal S1 and S2. No appreciated murmurs, rubs or gallops. Strong radial pulses with intact distal perfusion. No lower extremity edema] GASTROINTESTINAL: [soft, active bowel sounds throughout, non-tender, non- distended, no palpable masses, no rebound or guarding. No hepatosplenomegaly] GENITOURINARY: MUSCULOSKELETAL: [Extremities have no gross deformity] NEUROLOGIC: [_a/o x 1, GCS 14, mildly confused mentation. Moves all extremities x 4 without motor or sensory deficit] PSYCHIATRIC:[ _normal mood and affect,thought process is confused with circular reasoning, angry affect though able to be redirected with conversation, ultimately cooperative] Limitations: altered mental status Course Vital Signs 08/07/24 08/07/24 08/07/24 00:14 05:45 09:57 Temperature 97.1 F L 98.9 F Pulse Rate 66 63 Pulse Rate [ 65 Bilateral] Respiratory 16 18 18 Rate Blood Pressure 124/55 156/63 Blood Pressure 161/80 [Supine] O2 Sat by Pulse 97 97 95 Oximetry Medical Decision Making - Medical Decision Making Was pt. sent in by a medical professional or institution (, PA, [employer], urgent care, hospital, or senior living...) When possible be specific @ -No Did you speak to anyone other than the patient for history (EMS, parent, family, police, friend...)? What history was obtained from this source @Spoke with p's son who assisted in providing hx- states pt has been home with him for 4 days, and they are unable to care for him due to his escalating behaviors/ angry outbursts Did you review nursing and triage notes (agree or disagree)? Why? @ -I reviewed nursing and triage notes Were old charts reviewed (outside hosp., previous admission, EMS record, old EKG, old radiological studies, urgent care reports/EKG's, senior living records)? Report findings @ -Medical records reviewed- Reviewed discharged summary from recent admission- pt admitted for penile abscess, suprapubic catheter placed by Dr. Rivera, 14 Fr was used Differential Diagnosis (chest pain, altered mental status, abdominal pain women, abdominal pain men, vaginal bleeding, weakness, fever, dyspnea, syncope, headache, dizziness, GI bleed, back pain, seizure, CVA, palpatations, mental health, musculoskeletal)? @ -Not applicable-Self removed suprapubic catheter EKG interpreted by me (3pts min.). @ -As above X-rays interpreted by me (1pt min.). @ -None done CT interpreted by me (1pt min.). @ -None done U/S interpreted by me (1pt. min.). @ -None done What testing was considered but not performed or refused? (CT, X-rays, U/S, labs)? Why? @ -None What meds were considered but not given or refused? Why? @ -None Did you discuss the management of the patient with other professionals (professionals i.e. DrKishan, PA, [employer]ER, lab, RT, psych nurse, social worker palliative care, lpn private duty, teacher, aviation safety officer, caseworker intake)? Give summary Case discussed with Dr. Rivera, States we can try 10-12 Fr if unable to insert, admit to medicine, he will see in the AM Was smoking cessation discussed for >3mins.? @ -No Was critical care preformed (if so, how long)? @ -No Were there social determinants of health that impacted care today? How? ( Homelessness, low income, unemployed, alcoholism, drug addiction, transportation, low edu. Level, literacy, decrease access to med. care, skilled nursing, rehab)? @ -No Was there de-escalation of care discussed even if they declined (Discuss DNR or withdrawal of care, Hospice)? @ -No What co-morbidities impacted this encounter? (DM, HTN, Smoking, COPD, CAD, Cancer, CVA, ARF, Chemo, Hep., AIDS, mental health diagnosis, sleep apnea, morbid obesity)? @ -Prior CVA Was patient admitted / discharged? Hospital course, mention meds given and route, prescriptions, significant lab abnormalities, going to OR and other pertinent info. @ Admission- Patient is an 83 gentleman past medical history prior CVA, recent admission for groin cellulitis and suprapubic catheter placement, presenting from home for removal of his suprapubic catheter. On my assessment patient is awake, alert, chronic ill-appearing though nontoxic in no acute distress. He was noted to be argumentative with staff on arrival and on my assessment is AO x1, resting calmly, with conversation he is ultimately agreeable with allowing me to examine him. Exam notable for dislodged suprapubic mcwilliams cath, no distention, palpable masses or guarding on palpation of the abdomen, erythema and wound at right lateral penile shaft extending towards base, no crepitus or swelling. Will try to replace suprapubic catheter down here in the ER. Will be given 2 mg IM versed prior to replacement in order to ease placement of catheter. Patient's son and [id number] are at bedside, provide further history and that patient returned home 4 days ago and has been living at home with them. He has been continuously angry and agitated to the point where patient's family's been unable to care for him. They have tried home Seroquel but this seems to make the patient more agitated. For this reason they are hoping to find placement for the patient. Attempted to place 12 Fr suprapubic catheter however was unsuccessful x 2 attempts. Despite RN going to central supply was unable to locate small catheter a small cath was unable to be located. Pt continued to be somewhat agitated, becoming angry when touched so ativan was given so pt able to safely tolerate straight cath. Pt was straight cathed to drain his bladder and oppox 700 cc urine drained. Pt resting comfortably after straight cath. UA sent. Pt to be admitted to Dr. Murguia, consult to Dr. Rivera. Pt accepted for admission to Dr. Murguia in stable condition. Dr. Rivera to take pt to the OR this afternoon. Undiagnosed new problem with uncertain prognosis? @ -No Drug Therapy requiring intensive monitoring for toxicity (Heparin, Nitro, Insulin, Cardizem)? @ -No Were any procedures done? @ -No Diagnosis/symptom? @ Urinary retention, suprapubic catheter ,malfunction Acute, or Chronic, or Acute on Chronic? acute Uncomplicated (without systemic symptoms) or Complicated (systemic symptoms)? @ complicated Side effects of treatment? @ -No Exacerbation, Progression, or Severe Exacerbation? @ -No Poses a threat to life or bodily function? How? (Chest pain, [place], [place], pneumonia, PE, COPD, DKA, ARF, appy, cholecystitis, CVA, Diverticulitis, Homicidal, Suicidal, threat to staff... and all critical care pts) @ -No - Lab Data Result diagrams: 08/07/24 11:35 Disposition Clinical Impression: Urinary retention, Suprapubic catheter dysfunction Disposition: ADMITTED IP TO THIS HOSP Condition: Stable
[2024-08-07] MEDS: OLANZapine 10 MG VIAL IM STA (00:12)
[2024-08-07] MEDS ORDERED: ACETAMINOPHEN TAB 325 MG TAB PO PRN (02:14)
[2024-08-07] MEDS ORDERED: NALOXONE 0.4 MG/ML 1 ML VIAL IV PRN (02:14)
[2024-08-07] MEDS ORDERED: PIPERACILLIN-TAZOBACTAM 3.375 GM VIAL IVPB SCH (02:30)
[2024-08-07] MEDS: LORazepam 2 MG/ML INJ IV STA (02:31)
[2024-08-07] MEDS: PIPERACILLIN-TAZOBACTAM 3.375 GM in SODIUM CHLORIDE 0.9% 100 ML IVPB SCH (03:53)
[2024-08-07 04:08] LABS: Appearance,Urine Clear (Clear); Bacteria,Urine Rare /hpf; Bilirubin,Urine Negative (Negative); Blood,Urine Large (Negative); Color,Urine Colorless; Glucose,Urine (UA) Negative (Negative); Hyaline Casts,Urine 1 /lpf (0-2); Ketones,Urine Negative (Negative); Leukocyte Esterase,Urine Negative (Negative); Mucus,Urine Rare /hpf; Nitrite,Urine Negative (Negative); Protein,Urine Trace (Negative); RBC,Urine 65 /hpf (0-5); Specific Gravity,Urine 1.007 (1.001-1.035); Urobilinogen,Urine <2.0 mg/dL (<2.0); WBC,Urine 6 /hpf (0-5)
[2024-08-07] MEDS: DOCUSATE 100 MG CAP PO SCH (04:31)
[2024-08-07] MEDS: LEVOTHYROXINE 125 MCG TAB PO SCH (06:34)
--- NOTE | 2024-08-07 08:06 | P.GSCN ---
History of Present Illness Consult date: 08/07/24 History of present illness: 83 yo male recently in the hospital with a periurethral abscess. He required surgery to drain the abscess and remove the necrotic tissue. He had a 14 fr sp tube placed at that time. Apparently he was home and pulled the tube out. He was brought back to the er. The staff was unable to replace the tube. We were asked to see him. He is unable to give any salient history. Review of Systems ROS unobtainable: due to mental status Past Medical History Past Medical History: COPD, Diabetes Mellitus, Hyperlipidemia, Hypertension History of Any Multi-Drug Resistant Organisms: MRSA Year Discovered:: 07/15/24 MDRO Source:: urine Additional Past Surgical History / Comment(s): neck surgery Past Anesthesia/Blood Transfusion Reactions: No Reported Reaction Past Psychological History: No Psychological Hx Reported Smoking Status: Former smoker Past Alcohol Use History: None Reported Past Drug Use History: None Reported Medications and Allergies Home Medications Medication Instructions Recorded Confirmed Type Aspirin 81 mg PO DAILY 07/16/24 07/25/24 History Atorvastatin [Lipitor] 80 mg PO HS 07/16/24 07/25/24 History Docusate [Colace] 100 mg PO Q12H 07/16/24 07/25/24 History INSULIN LISPRO (HumaLOG) [humaLOG] See Protocol SQ ACHS 07/16/24 07/25/24 History Latanoprost [Latanoprost 0.005%] 1 drop BOTH EYES HS 07/16/24 07/25/24 History Levothyroxine Sodium [Synthroid] 125 mcg PO SUTUWEFRSA 07/16/24 07/25/24 History Levothyroxine Sodium [Synthroid] 150 mcg PO MOTH 07/16/24 07/25/24 History Melatonin 3 mg PO HS 07/16/24 07/25/24 History Midodrine HCl [ProAmantine] 2.5 mg PO TID-W/MEALS 07/16/24 07/25/24 History Apixaban [Eliquis] 5 mg PO BID tab 07/19/24 07/25/24 Rx Acetaminophen-Codeine 300-30mg 1 tab PO Q4HR PRN 07/25/24 07/25/24 History [Tylenol w/codeine #3] Fluconazole [Diflucan] 100 mg PO DAILY 19 Days #10 tab 08/03/24 Rx Insulin Detemir (Levemir) [Levemir] 20 unit SQ HS #0 each 08/03/24 Rx Nystatin 100,000 Unit/gm Powd 1 applic TOPICAL TID 10 Days #250 08/03/24 Rx [Mycostatin Powder] each Piperacillin-Tazobactam [Zosyn] 3.375 gm IVPB Q8HR 10 Days #0 each 08/03/24 Rx QUEtiapine [SEROquel] 50 mg PO HS 30 Days #30 tab 08/03/24 Rx Allergies Allergy/AdvReac Type Severity Reaction Status Date / Time No Known Allergies Allergy Verified 08/06/24 23:17 Surgical - Exam Vital Signs Temp Pulse Resp BP Pulse Ox 97.1 F L 66 16 124/55 97 08/07/24 00:14 08/07/24 00:14 08/07/24 00:14 08/07/24 00:14 08/07/24 00:14 - General well developed - Eyes PERRL - ENT no hearing loss - Neck trachea midline - Respiratory normal respiratory effort - Cardiovascular Rhythm: regular - Abdomen bladder appears full - Genitourinary healing right dorsal penile shaft wound - Psychiatric disoriented oriented to time Results - Labs Abnormal Lab Results - Last 24 Hours (Table) 08/07/24 Range/Units 03:20 Urine Protein Trace H (Negative) Urine Blood Large H (Negative) Urine RBC 65 H (0-5) /hpf Urine WBC 6 H (0-5) /hpf Urine Bacteria Rare H (None) /hpf Urine Mucus Rare H (None) /hpf Assessment and Plan Assessment: Impression: urine retention. recent history of periurthral abscess with urethral damage. multiple mental medical issues Recommendations; Placement of suprapubic tube
[2024-08-07 08:25] LABS: Glucose,Whole Blood 56 mg/dL (70-110)
[2024-08-07] MEDS: ASPIRIN 81 MG PO SCH (08:58)
[2024-08-07] MEDS: APIXABAN 5 MG TAB PO SCH (08:58)
[2024-08-07] MEDS: MIDODRINE 5 MG TAB PO SCH (08:59)
[2024-08-07] MEDS: DEXTROSE 5% IN WATER 1,000 ML IV SCH (09:43)
[2024-08-07] MEDS: FLUCONAZOLE 100 MG TAB PO SCH (09:44)
[2024-08-07 10:33] LABS: Glucose,Whole Blood 74 mg/dL (70-110)
[2024-08-07] MEDS: IV FLUID CONTINUATION 1,000 ML IV ONE ×2 (11:03→12:30)
[2024-08-07 11:09] LABS: Glucose,Whole Blood 70 mg/dL (70-110)
[2024-08-07] MEDS ORDERED: lisinopriL 10 MG TAB ONE (11:50)
[2024-08-07] MEDS ORDERED: PROPOFOL 10 MG/ML 20 ML VIAL IV ONE (11:50)
[2024-08-07] MEDS ORDERED: LIDOCAINE 1% INJ 10MG/ML (20 ML MDV) ONE (11:50)
[2024-08-07 11:53] LABS: Basophils % (A) 0 %; Eosinophils # (A) 0.5 k/uL (0-0.7); Eosinophils % (A) 7 %; HCT 29.5 % (39.0-53.0); Hypochromasia Marked; Lymphocytes # (A) 2.4 k/uL (1.0-4.8); Lymphocytes % (A) 35 %; MCH 29.4 pg (25.0-35.0); MCHC 30.8 g/dL (31.0-37.0); MCV 95.7 fL (80.0-100.0); Mean Platelet Volume 7.5; Monocytes # (A) 0.6 k/uL (0-1.0); Monocytes % (A) 9 %; Neutrophils # (A) 3.2 k/uL (1.3-7.7); Neutrophils % (A) 47 %; Platelet Count 432 k/uL (150-450); RBC 3.08 m/uL (4.30-5.90); RDW 15.4 % (11.5-15.5); WBC 6.8 k/uL (3.8-10.6)
[2024-08-07 12:01] LABS: HGB 9.1 gm/dL (13.0-17.5)
--- NOTE | 2024-08-07 12:28 | P.HPIM ---
History of Present Illness H&P Date: 08/07/24 Bill Salter is an 83-year-old male patient who presented to the ER with concerns of urinary retention after pulling out his suprapubic catheter. Patient was recently here and discharged and was treated for acute groin cellulitis and penile abscess and when she went an I&D and received a suprapubic catheter. Patient was discharged on IV antibiotic Zosyn to home. 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 Lab work completed showing white blood cell 6.8, hemoglobin 9.1. At this time patient will be admitted urology services have been consulted patient restarted back on IV Zosyn Review of Systems Please refer to HPI otherwise unremarkable Past Medical History Past Medical History: COPD, Diabetes Mellitus, Hyperlipidemia, Hypertension History of Any Multi-Drug Resistant Organisms: MRSA Date of last positivie culture/infection: 07/15/24 MDRO Source:: urine Additional Past Surgical History / Comment(s): neck surgery Past Anesthesia/Blood Transfusion Reactions: No Reported Reaction Past Psychological History: No Psychological Hx Reported Smoking Status: Former smoker Past Alcohol Use History: None Reported Past Drug Use History: None Reported Medications and Allergies Home Medications Medication Instructions Recorded Confirmed Type RX: Aspirin 81 mg PO DAILY 07/16/24 08/07/24 History RX: Atorvastatin [Lipitor] 80 mg PO HS 07/16/24 08/07/24 History RX: Docusate [Colace] 100 mg PO Q12H 07/16/24 08/07/24 History RX: INSULIN LISPRO (HumaLOG) See Protocol SQ ACHS 07/16/24 08/07/24 History [humaLOG] RX: Latanoprost [Latanoprost 1 drop BOTH EYES HS 07/16/24 08/07/24 History 0.005%] RX: Levothyroxine Sodium 125 mcg PO SUTUWEFRSA 07/16/24 08/07/24 History [Synthroid] RX: Levothyroxine Sodium 150 mcg PO MOTH 07/16/24 08/07/24 History [Synthroid] RX: Melatonin 3 mg PO HS 07/16/24 08/07/24 History RX: Midodrine HCl [ProAmantine] 2.5 mg PO TID-W/MEALS 07/16/24 08/07/24 History RX: Apixaban [Eliquis] 5 mg PO BID tab 07/19/24 08/07/24 Rx RX: Acetaminophen-Codeine 300-30mg 1 tab PO Q4HR PRN 07/25/24 08/07/24 History [Tylenol w/codeine #3] RX: Fluconazole [Diflucan] 100 mg PO DAILY 19 Days #10 tab 08/03/24 08/07/24 Rx RX: Insulin Detemir (Levemir) 20 unit SQ HS #0 each 08/03/24 08/07/24 Rx [Levemir] RX: Nystatin 100,000 Unit/gm Powd 1 applic TOPICAL TID 10 Days #250 08/03/24 08/07/24 Rx [Mycostatin Powder] each RX: Piperacillin-Tazobactam [Zosyn] 3.375 gm IVPB Q8HR 10 Days #0 each 08/03/24 08/07/24 Rx RX: QUEtiapine [SEROquel] 50 mg PO HS 30 Days #30 tab 08/03/24 08/07/24 Rx Allergies Allergy/AdvReac Type Severity Reaction Status Date / Time No Known Allergies Allergy Verified 08/07/24 07:53 Physical Exam Vitals: Vital Signs Temp Pulse Pulse Pulse Resp BP BP 08/07/24 11:13 97.1 F L 70 18 161/69 08/07/24 10:57 97.9 F 68 18 161/69 08/07/24 09:57 98.9 F 65 18 161/80 08/07/24 05:45 63 18 156/63 08/07/24 00:14 97.1 F L 66 16 124/55 Pulse Ox 08/07/24 11:13 97 08/07/24 10:57 97 08/07/24 09:57 95 08/07/24 05:45 97 08/07/24 00:14 97 Intake and Output 08/06/24 08/07/24 08/07/24 22:59 06:59 14:59 Intake Total 300 Balance 300 Intake: IV 300 Other: Weight 90.718 kg Head normocephalic Neck supple Lungs clear to auscultation bilaterally no wheezing or crackles Heart regular rate and rhythm S1-S2, no rub or gallop Abdomen is soft nontender nondistended positive bowel sounds no hepatosplenomegaly. Suprapubic catheter site clean dry and intact Extremities no edema Neuro alert and orientated to 1. Intermittent confusion Results CBC & Chem 7: 08/07/24 11:35 Labs: Abnormal Lab Results - Last 24 Hours (Table) 08/07/24 08/07/24 08/07/24 Range/Units 03:20 08:19 11:35 RBC 3.08 L (4.30-5.90) m/uL Hgb 9.1 L D (13.0-17.5) gm/dL Hct 29.5 L (39.0-53.0) % MCHC 30.8 L (31.0-37.0) g/dL POC Glucose (mg/dL) 56 L (70-110) mg/dL Urine Protein Trace H (Negative) Urine Blood Large H (Negative) Urine RBC 65 H (0-5) /hpf Urine WBC 6 H (0-5) /hpf Urine Bacteria Rare H (None) /hpf Urine Mucus Rare H (None) /hpf Assessment and Plan Assessment: 1. Dislodged suprapubic catheter 2. Recent history of periurethral abscess with drainage and suprapubic catheter placement. Patient was discharged on IV Zosyn 3. History of CVA in May 2024 for which she was treated at [facility] 4. History of DVT in left leg patient was started on Eliquis 5. History of UTI with sepsis and positive blood cultures 6. History of diabetes mellitus type 2 7. History of essential hypertension 8. History of hyperlipidemia DVT prophylaxis Eliquis. GI prophylax Protonix Urology and infectious disease services consulted Patient maintained on IV Zosyn Repeat labs ordered Time with Patient: Greater than 30 (Greater than 60% of the total time spent in counseling and coordination of care)
[2024-08-07 12:58] LABS: Glucose,Whole Blood 90 mg/dL (70-110)
[2024-08-07] MEDS: NYSTATIN 100,000 UNIT/GM POWD 15 GM TOPICAL SCH (14:15)
--- NOTE | 2024-08-07 16:36 | P.OP ---
Date of Procedure: 08/07/24 Preoperative Diagnosis: urine retention, urethral fistula Postoperative Diagnosis: same Procedure(s) Performed: cystostomy with placement of 20 fr sp tube Anesthesia: LUIS Surgeon: Srinivas Rivera Estimated Blood Loss (ml): 0 Pathology: none sent Condition: stable Disposition: PACU Indications for Procedure: The patient is 83 and in retention. He pulled out a previous urethral catheter and developed a periurethral abscess with fistula. I drained the abscess and placed a 14 fr sp tube. He pulled that out and returned to the er in retention. He comes for placement of another sp tube. The fistula is healing some Description of Procedure: THe patient is brought to the or. He is given a general anesthetic. He is prepped and draped sterilely. A midline sp incision is made. The rectus fascia is opened. The bladder is identified and opened. A 20 fr mcwilliams catheter is placed in the bladder. A 2-0 purse string w vicryl is placed around the sp tube. Another is placed in the bladder to close the small defect. I then close the rectus with 2-0 vicryl/ THe sp tube was brought out through the midline. The skin was stapled. THe wound was dressed The catheter is draining well The patient was awakened and returned to the recovery in good condition. Blod loss was negligible
[2024-08-07] MEDS ORDERED: QUEtiapine 25 MG TAB PO PRN (18:00)
[2024-08-07 20:36] LABS: Glucose,Whole Blood 192 mg/dL (70-110)
[2024-08-07] MEDS: INSULIN DETEMIR (LEVEMIR) 100 UNIT/ML SYR SQ SCH (21:08)
[2024-08-07] MEDS: QUEtiapine 50 MG TAB PO SCH (21:08)
[2024-08-07] MEDS: ATORVASTATIN 80 MG TAB PO SCH (21:08)
[2024-08-07] MEDS: LATANOPROST 0.005% OPHTH DROPS 2.5 ML BTL BOTH EYES SCH (22:04)
[2024-08-08] MEDS: HALOPERIDOL LACTATE 5 MG/ML 1 ML VIAL IM STA (00:26)
--- NOTE | 2024-08-08 07:41 | P.CONS ---
History of Present Illness - Reason for Consult Consult date: 08/07/24 Penile abscess Requesting physician: Steve Murguia - Chief Complaint Pulled out his suprapubic catheter x 1 day - History of Present Illness Patient is a 83-year-old male with a past medical history significant for diabetes mellitus hyperlipidemia hypertension COPD recently admitted to hospital with dislodged Larsen catheter leading to penile abscess status post surgical drainage of the abscess culture positive for Pseudomonas aeruginosa Klebsiella Evelin and anaerobes-patient also have suprapubic catheter placement for evaluation he did get a midline and was advised a 10-day course of IV Zosyn and oral Flagyl with the patient was currently taking at home patient apparently has put out his suprapubic catheter for the patient has been brought back to the hospital patient is currently pleasantly confused and not very good historian denies any fever any chills no chest pain shortness of breath or cough no abdominal pain or any diarrhea on presentation to hospital patient was afebrile no fever have been called subsequently patient was not tachycardic hypotensive or hypoxic patient did have a white count of 6.8 urine has been positive patient has been continued on Zosyn and Diflucan today was consulted for further management presented by therapy Review of Systems Positive points has been mentioned in HPI complete review could not be obtained because of his underlying mental status Past Medical History Past Medical History: COPD, Diabetes Mellitus, Hyperlipidemia, Hypertension History of Any Multi-Drug Resistant Organisms: MRSA Year Discovered:: 07/15/24 MDRO Source:: urine Additional Past Surgical History / Comment(s): neck surgery Past Anesthesia/Blood Transfusion Reactions: No Reported Reaction Past Psychological History: No Psychological Hx Reported Smoking Status: Former smoker Past Alcohol Use History: None Reported Past Drug Use History: None Reported Medications and Allergies Home Medications Medication Instructions Recorded Confirmed Type Aspirin 81 mg PO DAILY 07/16/24 08/07/24 History Atorvastatin [Lipitor] 80 mg PO HS 07/16/24 08/07/24 History Docusate [Colace] 100 mg PO Q12H 07/16/24 08/07/24 History INSULIN LISPRO (HumaLOG) [humaLOG] See Protocol SQ ACHS 07/16/24 08/07/24 History Latanoprost [Latanoprost 0.005%] 1 drop BOTH EYES HS 07/16/24 08/07/24 History Levothyroxine Sodium [Synthroid] 125 mcg PO SUTUWEFRSA 07/16/24 08/07/24 History Levothyroxine Sodium [Synthroid] 150 mcg PO MOTH 07/16/24 08/07/24 History Melatonin 3 mg PO HS 07/16/24 08/07/24 History Midodrine HCl [ProAmantine] 2.5 mg PO TID-W/MEALS 07/16/24 08/07/24 History Apixaban [Eliquis] 5 mg PO BID tab 07/19/24 08/07/24 Rx Acetaminophen-Codeine 300-30mg 1 tab PO Q4HR PRN 07/25/24 08/07/24 History [Tylenol w/codeine #3] Fluconazole [Diflucan] 100 mg PO DAILY 19 Days #10 tab 08/03/24 08/07/24 Rx Insulin Detemir (Levemir) [Levemir] 20 unit SQ HS #0 each 08/03/24 08/07/24 Rx Nystatin 100,000 Unit/gm Powd 1 applic TOPICAL TID 10 Days #250 08/03/24 08/07/24 Rx [Mycostatin Powder] each Piperacillin-Tazobactam [Zosyn] 3.375 gm IVPB Q8HR 10 Days #0 each 08/03/2405/21 Rx QUEtiapine [SEROquel] 50 mg PO HS 30 Days #30 tab 08/03/24 08/07/24 Rx Allergies Allergy/AdvReac Type Severity Reaction Status Date / Time No Known Allergies Allergy Verified 08/07/24 15:52 Physical Exam Vitals: Vital Signs Temp Pulse Pulse Pulse Resp BP BP 08/07/24 12:45 61 18 157/68 08/07/24 12:30 97.9 F 60 12 162/68 08/07/24 11:13 97.1 F L 70 18 161/69 08/07/24 10:57 97.9 F 68 18 161/69 08/07/24 09:57 98.9 F 65 18 161/80 08/07/24 05:45 63 18 156/63 08/07/24 00:14 97.1 F L 66 16 124/55 Pulse Ox 08/07/24 12:45 100 08/07/24 12:30 100 08/07/24 11:13 97 08/07/24 10:57 97 08/07/24 09:57 95 08/07/24 05:45 97 08/07/24 00:14 97 Intake and Output 08/06/24 08/07/24 08/07/24 22:59 06:59 14:59 Intake Total 500 Output Total 10 Balance 490 Intake: IV 500 Output: Estimated Blood Loss 10 Other: Weight 90.718 kg 90.718 kg GENERAL DESCRIPTION: Elderly male lying in bed, no distress. No tachypnea or accessory muscle of respiration use. HEENT: Shows Pallor , no scleral icterus. Oral mucous membrane is dry. No pharyngeal erythema or thrush NECK: Trachea central, no thyromegaly. LUNGS: Unlabored breathing. Clear to auscultation anteriorly. No wheeze or crackle. HEART: S1, S2, regular rate and rhythm. No loud murmur ABDOMEN: Soft, no tenderness , guarding or rigidity, no organomegaly GENITOURINARY: Wound on the medial aspect of the penile shaft with no slough tissue overall swelling has decreased no drainage EXTREMITIES: No edema of feet. SKIN: No rash, no masses palpable. NEUROLOGICAL: The patient is awake, but pleasantly confused orientation could not determine Results CBC & Chem 7: 08/07/24 11:35 Labs: Abnormal Lab Results - Last 24 Hours (Table) 08/07/24 08/07/24 08/07/24 Range/Units 03:20 08:19 11:35 RBC 3.08 L (4.30-5.90) m/uL Hgb 9.1 L D (13.0-17.5) gm/dL Hct 29.5 L (39.0-53.0) % MCHC 30.8 L (31.0-37.0) g/dL POC Glucose (mg/dL) 56 L (70-110) mg/dL Urine Protein Trace H (Negative) Urine Blood Large H (Negative) Urine RBC 65 H (0-5) /hpf Urine WBC 6 H (0-5) /hpf Urine Bacteria Rare H (None) /hpf Urine Mucus Rare H (None) /hpf Assessment and Plan (1) Penile abscess Current Visit: No Status: Acute Code(s): N48.21 - ABSCESS OF CORPUS CAVERNOSUM AND PENIS SNOMED Code(s): 71932182 Plan: 1patient with recent admission to the hospital with penile abscess in this patient was status post drainage of the abscess culture positive for multiple pathogen including Pseudomonas and he also have a suprapubic catheter now presenting back after his suprapubic catheter which has been replaced this morning by urology. 2patient will be treated with Zosyn and Diflucan to cover for the pathogen that was grown from the culture of his penile abscess. 3local wound care with dry Aquacel dressing change q. 48-hour discussed with the nursing staff. We will follow on clinical condition and cultures to further adjust medication if needed Thank you for this consultation we will follow the patient along with you Dictation was produced using [employer] dictation software. please excuse any grammatical, word or spelling errors. Time with Patient: Greater than 30
[2024-08-08 08:35] LABS: ALT 15 U/L (4-49); AST 28 U/L (17-59); African American GFR (CKD) >90 (>60 ml/min/1.73 sqM); Albumin 2.7 g/dL (3.5-5.0); Albumin/Globulin Ratio 0.8; Alkaline Phosphatase 83 U/L (38-126); Anion Gap 7 mmol/L; Blood Urea Nitrogen 11 mg/dL (9-20); Calcium 8.6 mg/dL (8.4-10.2); Carbon Dioxide 28 mmol/L (22-30); Chloride 104 mmol/L (98-107); Globulin 3.5 g/dL; Glucose 109 mg/dL (74-99); Non-African American GFR(CKD) 79 (>60 ml/min/1.73 sqM); Potassium 3.8 mmol/L (3.5-5.1); Sodium 139 mmol/L (137-145); Total Bilirubin 0.4 mg/dL (0.2-1.3); Total Protein 6.2 g/dL (6.3-8.2)
[2024-08-08] MEDS: PANTOPRAZOLE 40 MG TABLET PO SCH (10:03)
[2024-08-08 10:36] LABS: Basophils # (A) 0.06 X 10*3/uL (0.00-0.10); Basophils % (A) 0.6 %; Eosinophils # (A) 0.44 X 10*3/uL (0.04-0.35); Eosinophils % (A) 4.7 %; HCT 31.4 % (39.6-50.0); HGB 9.6 g/dL (13.0-17.0); Lymphocytes # (A) 3.23 X 10*3/uL (0.90-5.00); Lymphocytes % (A) 34.7 %; MCH 28.2 pg (27.0-32.0); MCHC 30.6 g/dL (32.0-37.0); MCV 92.4 FL (80.0-97.0); Mean Platelet Volume 9.5 FL (9.5-12.2); Monocytes # (A) 1.35 X 10*3/uL (0.20-1.00); Monocytes % (A) 14.5 %; NRBC Per 100 WBC 0 X 10*3/uL (0.00-0.01); Neutrophils # (A) 4.22 X 10*3/uL (1.80-7.70); Neutrophils % (A) 45.3 %; Platelet Count 438 X 10*3/uL (140-440); RDW 15.7 % (11.5-14.5); WBC 9.32 X 10*3/uL (4.50-10.00)
--- NOTE | 2024-08-08 11:12 | P.PN ---
Subjective Progress Note Date: 08/08/24 Principal diagnosis: Reason for follow-up is penile abscess Patient is a 83-year-old male with a past medical history significant for diabetes mellitus hyperlipidemia hypertension COPD recently admitted to hospital with dislodged Larsen catheter leading to penile abscess status post surgical drainage of the abscess culture positive for Pseudomonas aeruginosa Klebsiella Evelin and anaerobes patient currently admitted to hospital because of pulling out his suprapubic catheter which has been placed back by urology. On today's evaluation that is 08/08/2024,the patient has been afebrile patient is currently breathing comfortably on room air patient is sleepy and no issues reported by the sitter at the bedside vomiting diarrhea has been reported. Patient white count is 9.32, creatinine 0.91 Objective - Vital Signs Vital signs: Vital Signs Temp 97.2 F L 08/07/24 14:33 Pulse 93 08/07/24 18:24 Resp 18 08/08/24 08:00 BP 162/71 08/07/24 18:24 Pulse Ox 97 08/07/24 18:24 FiO2 Intake & Output 08/07/24 08/08/24 08/08/24 18:59 06:59 18:59 Intake Total 700 Output Total 710 1300 Balance -10 -1300 Weight 90.718 kg Intake: IV 700 Output: Urine 700 1300 Estimated Blood Loss 10 Other: Voiding Method Indwelling Catheter Indwelling Catheter - Exam GENERAL DESCRIPTION: An elderly male lying in bed in no distress RESPIRATORY SYSTEM: Unlabored breathing , decreased breath sounds at bases HEART: S1 S2 regular rate and rhythm , ABDOMEN: Soft , no tenderness EXTREMITIES: No edema feet - Labs CBC & Chem 7: 08/08/24 07:40 08/08/24 07:40 Labs: Abnormal Lab Results - Last 24 Hours (Table) 08/07/24 08/07/24 08/08/24 Range/Units 11:35 20:30 07:40 RBC 3.08 L 3.40 L (4.30-5.90) m/uL Hgb 9.1 L D 9.6 L (13.0-17.5) gm/dL Hct 29.5 L 31.4 L (39.0-53.0) % MCHC 30.8 L 30.6 L (31.0-37.0) g/dL RDW 15.7 H (11.5-14.5) % Monocytes # 1.35 H (0.20-1.00) X 10*3/uL Eosinophils # 0.44 H (0.04-0.35) X 10*3/uL Glucose (74-99) mg/dL POC Glucose (mg/dL) 192 H (70-110) mg/dL Total Protein (6.3-8.2) g/dL Albumin (3.5-5.0) g/dL 08/08/24 Range/Units 07:40 RBC (4.30-5.90) m/uL Hgb (13.0-17.5) gm/dL Hct (39.0-53.0) % MCHC (31.0-37.0) g/dL RDW (11.5-14.5) % Monocytes # (0.20-1.00) X 10*3/uL Eosinophils # (0.04-0.35) X 10*3/uL Glucose 109 H (74-99) mg/dL POC Glucose (mg/dL) (70-110) mg/dL Total Protein 6.2 L (6.3-8.2) g/dL Albumin 2.7 L (3.5-5.0) g/dL Assessment and Plan (1) Penile abscess Current Visit: No Status: Acute Code(s): N48.21 - ABSCESS OF CORPUS CAVERNOSUM AND PENIS SNOMED Code(s): 46623098 Plan: 1patient with recent admission to the hospital with penile abscess in this patient was status post drainage of the abscess culture positive for multiple pathogen including Pseudomonas and he also have a suprapubic catheter now presenting back after his suprapubic catheter which has been replaced this morning by urology. 2patient local wound care with dry Aquacel dressing change q. 48-hour discussed with the nursing staff. 3patient will be treated with Zosyn and Diflucan on the basis of previous sensitivity may benefit from going to the [facility] instead of home Dictation was produced using [employer] software. please excuse any grammatical, word or spelling errors. Time with Patient: Less than 30
--- NOTE | 2024-08-08 13:20 | P.PN ---
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 He had a suprapubic tube placed about 10 to gaze ago by myself. It was removed by the patient advertently due to his disorientation. The suprapubic tube was placed yesterday he is tolerating this. Objective - Vital Signs Vital signs: Vital Signs Temp 97.6 F 08/08/24 12:49 Pulse 72 08/08/24 12:49 Resp 16 08/08/24 12:49 BP 148/81 08/08/24 12:49 Pulse Ox 95 08/08/24 12:49 FiO2 Intake & Output 08/07/24 08/08/24 08/08/24 18:59 06:59 18:59 Intake Total 700 Output Total 710 1300 850 Balance -10 1300 -850 Weight 90.718 kg Intake: IV 700 Output: Urine 700 1300 850 Estimated Blood Loss 10 Other: Voiding Method Indwelling Catheter Indwelling Catheter - Labs CBC & Chem 7: 08/08/24 07:40 08/08/24 07:40 Labs: Abnormal Lab Results - Last 24 Hours (Table) 08/07/24 08/08/24 08/08/24 Range/Units 20:30 07:40 07:40 RBC 3.40 L (4.40-5.60) X 10*6/uL Hgb 9.6 L (13.0-17.0) g/dL Hct 31.4 L (39.6-50.0) % MCHC 30.6 L (32.0-37.0) g/dL RDW 15.7 H (11.5-14.5) % Monocytes # 1.35 H (0.20-1.00) X 10*3/uL Eosinophils # 0.44 H (0.04-0.35) X 10*3/uL Glucose 109 H (74-99) mg/dL POC Glucose (mg/dL) 192 H (70-110) mg/dL Total Protein 6.2 L (6.3-8.2) g/dL Albumin 2.7 L (3.5-5.0) g/dL Assessment and Plan Assessment: Impression: Chronic urine retention. History of periurethral abscess and fistula, status post placement of open suprapubic cystostomy tube recommendations: continue with tube we will follow.
[2024-08-08 14:19] VITALS: BMI 27.1
--- NOTE | 2024-08-08 16:37 | P.PN ---
Subjective Progress Note Date: 08/08/24 Bill Salter is an 83-year-old male patient who presented to the ER with concerns of urinary retention after pulling out his suprapubic catheter. Patient was recently here and discharged and was treated for acute groin cellulitis and penile abscess and when she went an I&D and received a suprapubic catheter. Patient was discharged on IV antibiotic Zosyn to home. 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 Lab work completed showing white blood cell 6.8, hemoglobin 9.1. At this time patient will be admitted urology services have been consulted patient restarted back on IV Zosyn On 08/08/2024 patient was seen and examined on the medical floor he is alert, confused in no apparent distress he is calm at this time however he is having episodes of agitation, he is maintained on Seroquel and received 1 dose of Haldol IM last night, he is denying any complaints at this time there is no ch est pain no shortness of breath no fever or chills no cough no nausea or vomiting no diarrhea, and no urinary symptoms, he has suprapubic catheter inserted, consultation for psychiatry was requested, will continue to follow closely Objective - Vital Signs Vital signs: Vital Signs Temp 97.6 F 08/08/24 12:49 Pulse 72 08/08/24 12:49 Resp 16 08/08/24 14:00 BP 148/81 08/08/24 12:49 Pulse Ox 95 08/08/24 12:49 FiO2 Intake & Output 08/07/24 08/08/24 08/08/24 18:59 06:59 18:59 Intake Total 700 Output Total 707 1300 850 Balance -293 Weight 90.718 kg 90.718 kg Intake: IV 700 Output: Urine 700 1300 850 Estimated Blood Loss 10 Other: Voiding Method Indwelling Catheter Indwelling Catheter - Exam Head normocephalic Neck supple Lungs clear to auscultation bilaterally no wheezing or crackles Heart regular rate and rhythm S1-S2, no rub or gallop Abdomen is soft nontender nondistended positive bowel sounds no hepatosplenomegaly. Suprapubic catheter site clean dry and intact Extremities no edema Neuro alert and orientated to 1. Intermittent confusion - Labs CBC & Chem 7: 08/08/24 07:40 08/08/24 07:40 Labs: Abnormal Lab Results - Last 24 Hours (Table) 08/07/24 08/08/24 08/08/24 Range/Units 20:30 07:40 07:40 RBC 3.40 L (4.40-5.60) X 10*6/uL Hgb 9.6 L (13.0-17.0) g/dL Hct 31.4 L (39.6-50.0) % MCHC 30.6 L (32.0-37.0) g/dL RDW 15.7 H (11.5-14.5) % Monocytes # 1.35 H (0.20-1.00) X 10*3/uL Eosinophils # 0.44 H (0.04-0.35) X 10*3/uL Glucose 109 H (74-99) mg/dL POC Glucose (mg/dL) 192 H (70-110) mg/dL Total Protein 6.2 L (6.3-8.2) g/dL Albumin 2.7 L (3.5-5.0) g/dL Assessment and Plan Assessment: 1. Dislodged suprapubic catheter 2. Recent history of periurethral abscess with drainage and suprapubic catheter placement. Patient was discharged on IV Zosyn 3. History of CVA in May 2024 for which she was treated at [facility] 4. History of DVT in left leg patient was started on Eliquis 5. History of UTI with sepsis and positive blood cultures 6. History of diabetes mellitus type 2 7. History of essential hypertension 8. History of hyperlipidemia DVT prophylaxis Eliquis. GI prophylax Protonix Urology and infectious disease services consulted Patient maintained on IV Zosyn Repeat labs ordered
[2024-08-08 17:39] LABS: Glucose,Whole Blood 216 mg/dL (70-110)
[2024-08-09] MEDS: HALOPERIDOL LACTATE 5 MG/ML 1 ML VIAL IM STA ×2 (00:25→17:36)
[2024-08-09] MEDS: LEVOTHYROXINE 75 MCG TAB PO SCH (05:49)
--- NOTE | 2024-08-09 07:42 | P.PN ---
Subjective Progress Note Date: 08/09/24 Second postoperative day from placement of a suprapubic tube. The urine is clear. He is not pulling at the tube. The dressing remains dry and intact. Objective - Vital Signs Vital signs: Vital Signs Temp 97.6 F 08/08/24 12:49 Pulse 73 08/08/24 17:36 Resp 16 08/08/24 17:36 BP 140/65 08/08/24 17:36 Pulse Ox 95 08/08/24 17:36 FiO2 Intake & Output 08/08/24 08/09/24 08/09/24 18:59 06:59 18:59 Output Total 1300 1300 Balance -1300 -1300 Weight 90.718 kg Output: Urine 1300 1300 Other: Voiding Method Indwelling Catheter Indwelling Catheter - Labs CBC & Chem 7: 08/08/24 07:40 08/08/24 07:40 Labs: Abnormal Lab Results - Last 24 Hours (Table) 08/08/24 08/08/24 08/08/24 Range/Units 07:40 07:40 17:31 RBC 3.40 L (4.40-5.60) X 10*6/uL Hgb 9.6 L (13.0-17.0) g/dL Hct 31.4 L (39.6-50.0) % MCHC 30.6 L (32.0-37.0) g/dL RDW 15.7 H (11.5-14.5) % Monocytes # 1.35 H (0.20-1.00) X 10*3/uL Eosinophils # 0.44 H (0.04-0.35) X 10*3/uL Glucose 109 H (74-99) mg/dL POC Glucose (mg/dL) 216 H (70-110) mg/dL Total Protein 6.2 L (6.3-8.2) g/dL Albumin 2.7 L (3.5-5.0) g/dL Assessment and Plan Assessment: Impression: Successful placement of suprapubic tube, open cystostomy. Recommendations: The patient can go home from a urologic standpoint I will see in 1 week to remove his heaven.
--- NOTE | 2024-08-09 09:41 | P.PN ---
Subjective Progress Note Date: 08/09/24 Bill Salter is an 83-year-old male patient who presented to the ER with concerns of urinary retention after pulling out his suprapubic catheter. Patient was recently here and discharged and was treated for acute groin cellulitis and penile abscess and when she went an I&D and received a suprapubic catheter. Patient was discharged on IV antibiotic Zosyn to home. 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 Lab work completed showing white blood cell 6.8, hemoglobin 9.1. At this time patient will be admitted urology services have been consulted patient restarted back on IV Zosyn On 08/08/2024 patient was seen and examined on the medical floor he is alert, confused in no apparent distress he is calm at this time however he is having episodes of agitation, he is maintained on Seroquel and received 1 dose of Haldol IM last night, he is denying any complaints at this time there is no ch est pain no shortness of breath no fever or chills no cough no nausea or vomiting no diarrhea, and no urinary symptoms, he has suprapubic catheter inserted, consultation for psychiatry was requested, will continue to follow closely 08/09/2024 patient was seen and examined on the medical floor, he is alert confused in no apparent distress, last night he had episodes of agitation, he is refusing to take his pills including Seroquel, he required IM Haldol at night, otherwise he denies any complaints there is no fever or chills no headache or dizziness no chest pain, no shortness of breath no nausea or vomiting no abdominal pain no diarrhea and no urinary symptoms, he has suprapubic catheter in. Psychiatry consultation has been requested due to severe agitation, will continue to follow closely. Objective - Vital Signs Vital signs: Vital Signs Temp 97.6 F 08/08/24 12:49 Pulse 73 08/08/24 17:36 Resp 16 08/08/24 17:36 BP 140/65 08/08/24 17:36 Pulse Ox 95 08/08/24 17:36 FiO2 Intake & Output 08/08/24 08/09/24 08/09/24 18:59 06:59 18:59 Output Total 1300 1300 Balance -1300 -1300 Weight 90.718 kg Output: Urine 1300 1300 Other: Voiding Method Indwelling Catheter Indwelling Catheter - Exam Head normocephalic Neck supple Lungs clear to auscultation bilaterally no wheezing or crackles Heart regular rate and rhythm S1-S2, no rub or gallop Abdomen is soft nontender nondistended positive bowel sounds no hepatosplenomegaly. Suprapubic catheter site clean dry and intact Extremities no edema Neuro alert and orientated to 1. Intermittent confusion - Labs CBC & Chem 7: 08/08/24 07:40 08/08/24 07:40 Labs: Abnormal Lab Results - Last 24 Hours (Table) 08/08/24 08/08/24 Range/Units 07:40 17:31 RBC 3.40 L (4.40-5.60) X 10*6/uL Hgb 9.6 L (13.0-17.0) g/dL Hct 31.4 L (39.6-50.0) % MCHC 30.6 L (32.0-37.0) g/dL RDW 15.7 H (11.5-14.5) % Monocytes # 1.35 H (0.20-1.00) X 10*3/uL Eosinophils # 0.44 H (0.04-0.35) X 10*3/uL POC Glucose (mg/dL) 216 H (70-110) mg/dL Assessment and Plan Assessment: 1. Dislodged suprapubic catheter 2. Recent history of periurethral abscess with drainage and suprapubic catheter placement. Patient was discharged on IV Zosyn 3. History of CVA in May 2024 for which she was treated at [facility] 4. History of DVT in left leg patient was started on Eliquis 5. History of UTI with sepsis and positive blood cultures 6. History of diabetes mellitus type 2 7. History of essential hypertension 8. History of hyperlipidemia DVT prophylaxis Eliquis. GI prophylax Protonix Urology and infectious disease services consulted Patient maintained on IV Zosyn Repeat labs ordered
[2024-08-09 12:17] LABS: Glucose,Whole Blood 360 mg/dL (70-110)
[2024-08-09] MEDS: INSULIN ASPART (NovoLOG) 100 UNIT/ML VIAL SQ SCH (13:16)
--- NOTE | 2024-08-09 13:34 | P.CN ---
Psychiatric Consult - . Consult date: 08/09/24 Consult:: 08/09/24 13:23 IDENTIFYING DATA: This patient is an 83-year-old male, retired REASON FOR REFERRAL: Psychiatry was consulted for agitation HISTORY OF PRESENT ILLNESS: The patient presented to the hospital due to catheter malfunction. Patient reportedly pulled out his catheter. Urology was consulted and replaced the catheter and he was started on IV antibiotics. Patient has received Haldol IM overnight for the past 2 nights given his agitation. He was seen with sitter at bedside. He was A&Ox1 and a poor historian overall. He denies any agitated events overnight, denying any as needed medications for this. Patient was irritable and largely uncooperative with the interview. At this time patient denies any suicidal or homical ideations, intent or plan. Patient denies any auditory, visual hallucinations and denies any paranoia or delusions. PAST PSYCHIATRIC HISTORY: Patient has no past psych history. Patient denies being on any psychiatric medications. Patient denies any previous psychiatric hospitalizations. Patient denies any psychiatric outpatient follow-up. Patient denies any history of suicide attempts in the past. PAST MEDICAL HISTORY: COPD, diabetes, hyperlipidemia, hypertension. ALLERGIES: as per EMR. CHEMICAL DEPENDENCY HISTORY: as per HPI. FAMILY PSYCHIATRIC/SUBSTANCE USE HISTORY: Unable to elicit SOCIAL HISTORY: Unable to elicit MENTAL STATUS EXAM: General Appearance: Patient appears to be stated age is alert, overall uncooperative. Patient appears to have fair hygiene and grooming wearing hospital gown with fair eye contact. Behavior: Patient is calmly lying in bed without any agitated behavior. He is irritable Speech: Patient's speech is fluent and nonpressured. Mood/Affect: Patient reports their mood is "okay", affect is congruent, constricted Suicidality/Homicidality: Patient denies having any suicidal or homicidal ideation intent or plan. 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 -Delirium precautions recommended with patient including - avoiding use of narcotics and [employer] sedatives, limit anticholinergic medications when possible, frequent re-orientation, minimize use of restraints, open window shades during the day and close them at night -Would recommend the following medication changes/additions: Discontinue Seroquel and start Zyprexa Zydis 5 mg at bedtime and Zyprexa IM 5 mg twice daily as needed for acute safety concerns -Continue 1:1 sitter for safety as necessary -Will continue to follow along -Please contact with any questions.
--- NOTE | 2024-08-09 15:15 | P.PN ---
Subjective Progress Note Date: 08/09/24 Principal diagnosis: Reason for follow-up is penile abscess Patient is a 83-year-old male with a past medical history significant for diabetes mellitus hyperlipidemia hypertension COPD recently admitted to hospital with dislodged Larsen catheter leading to penile abscess status post surgical drainage of the abscess culture positive for Pseudomonas aeruginosa Klebsiella Evelin and anaerobes patient currently admitted to hospital because of pulling out his suprapubic catheter which has been placed back by urology. On today's evaluation that is 08/09/2024,the patient remains to be afebrile, patient is on room air not requiring supplemental oxygen and denies any sh ortness of breath no chest pain or cough.Patient is more awake alert today wants to go home. Patient white count is 9.32, creatinine 0.91 Objective - Vital Signs Vital signs: Vital Signs Temp 97.6 F 08/08/24 12:49 Pulse 73 08/08/24 17:36 Resp 16 08/08/24 17:36 BP 140/65 08/08/24 17:36 Pulse Ox 95 08/08/24 17:36 FiO2 Intake & Output 08/08/24 08/09/24 08/09/24 18:59 06:59 18:59 Output Total 1300 1300 Balance -1300 -1300 Weight 90.718 kg Output: Urine 1300 1300 Other: Voiding Method Indwelling Catheter Indwelling Catheter - Exam GENERAL DESCRIPTION: An elderly male lying in bed in no distress RESPIRATORY SYSTEM: Unlabored breathing , decreased breath sounds at bases HEART: S1 S2 regular rate and rhythm , ABDOMEN: Soft , no tenderness EXTREMITIES: No edema feet - Labs CBC & Chem 7: 08/08/24 07:40 08/08/24 07:40 Labs: Abnormal Lab Results - Last 24 Hours (Table) 08/08/24 08/08/24 Range/Units 07:40 17:31 RBC 3.40 L (4.40-5.60) X 10*6/uL Hgb 9.6 L (13.0-17.0) g/dL Hct 31.4 L (39.6-50.0) % MCHC 30.6 L (32.0-37.0) g/dL RDW 15.7 H (11.5-14.5) % Monocytes # 1.35 H (0.20-1.00) X 10*3/uL Eosinophils # 0.44 H (0.04-0.35) X 10*3/uL POC Glucose (mg/dL) 216 H (70-110) mg/dL Assessment and Plan (1) Penile abscess Current Visit: No Status: Acute Code(s): N48.21 - ABSCESS OF CORPUS TAMMY NOSUM AND PENIS SNOMED Code(s): 13256040 Plan: 1patient with recent admission to the hospital with penile abscess in this patient was status post drainage of the abscess culture positive for multiple pathogen including Pseudomonas and he also have a suprapubic catheter now presenting back after his suprapubic catheter which has been replaced this morning by urology. 2patient local wound care with dry Aquacel dressing change q. 48-hour discussed with the nursing staff. 3patient currently being treated with Zosyn and Diflucan and monitor clinical course closely Dictation was produced using [employer] dictation software. please excuse any grammatical, word or spelling errors. Time with Patient: Less than 30
[2024-08-09] MEDS ORDERED: INSULIN ASPART (NovoLOG) 100 UNIT/ML VIAL SQ SCH (17:30)
[2024-08-09 18:09] LABS: Glucose,Whole Blood 440 mg/dL (70-110)
[2024-08-09] MEDS: INSULIN ASPART (NovoLOG) 100 UNIT/ML VIAL SQ ONE (19:02)
[2024-08-09 20:28] LABS: Glucose,Whole Blood 270 mg/dL (70-110)
[2024-08-09] MEDS: OLANZapine ODT 5 MG TAB PO SCH (22:09)
[2024-08-10] MEDS: HALOPERIDOL LACTATE 5 MG/ML 1 ML VIAL IM ONE (06:22)
--- NOTE | 2024-08-10 11:33 | P.PN ---
Subjective Progress Note Date: 08/10/24 Bill Salter is an 83-year-old male patient who presented to the ER with concerns of urinary retention after pulling out his suprapubic catheter. Patient was recently here and discharged and was treated for acute groin cellulitis and penile abscess and when she went an I&D and received a suprapubic catheter. Patient was discharged on IV antibiotic Zosyn to home. 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 Lab work completed showing white blood cell 6.8, hemoglobin 9.1. At this time patient will be admitted urology services have been consulted patient restarted back on IV Zosyn On 08/08/2024 patient was seen and examined on the medical floor he is alert, confused in no apparent distress he is calm at this time however he is having episodes of agitation, he is maintained on Seroquel and received 1 dose of Haldol IM last night, he is denying any complaints at this time there is no ch est pain no shortness of breath no fever or chills no cough no nausea or vomiting no diarrhea, and no urinary symptoms, he has suprapubic catheter inserted, consultation for psychiatry was requested, will continue to follow closely 08/09/2024 patient was seen and examined on the medical floor, he is alert confused in no apparent distress, last night he had episodes of agitation, he is refusing to take his pills including Seroquel, he required IM Haldol at night, otherwise he denies any complaints there is no fever or chills no headache or dizziness no chest pain, no shortness of breath no nausea or vomiting no abdominal pain no diarrhea and no urinary symptoms, he has suprapubic catheter in. Psychiatry consultation has been requested due to severe agitation, will continue to follow closely. On 08/10/2024 patient remains confused and agitated. Sitter at bedside. Psych consulted digestive medication to Zyprexa added. Patient denies chest pain or shortness breath. Patient denies nausea vomiting or diarrhea. Patient denies any urinary burning or frequency. current vital signs temp 98.2, heart rate 71, respiratory rate 16, blood pressure 131/62 with pulse ox 96% on room air Objective - Vital Signs Vital signs: Vital Signs Temp 98.2 F 08/09/24 15:00 Pulse 73 08/10/24 01:56 Resp 17 08/10/24 01:56 BP 151/70 08/10/24 01:56 Pulse Ox 97 08/10/24 01:56 FiO2 Intake & Output 08/09/24 08/10/24 08/10/24 18:59 06:59 18:59 Intake Total 1187 Output Total 450 1200 Balance 737 -1200 Intake: Oral 1187 Output: Urine 450 1200 Other: Voiding Method Indwelling Catheter Indwelling Catheter Indwelling Catheter # Bowel Movements 2 - Exam Head normocephalic Neck supple Lungs clear to auscultation bilaterally no wheezing or crackles Heart regular rate and rhythm S1-S2, no rub or gallop Abdomen is soft nontender nondistended positive bowel sounds no hepatosplenomegaly. Suprapubic catheter site clean dry and intact Extremities no edema Neuro alert and orientated to 1. Intermittent confusion - Labs CBC & Chem 7: 08/08/24 07:40 08/08/24 07:40 Labs: Abnormal Lab Results - Last 24 Hours (Table) 08/09/24 08/09/24 08/09/24 Range/Units 12:16 18:08 20:26 POC Glucose (mg/dL) 360 H 440 H 270 H (70-110) mg/dL Assessment and Plan Assessment: 1. Dislodged suprapubic catheter 2. Recent history of periurethral abscess with drainage and suprapubic catheter placement. Patient was discharged on IV Zosyn 3. History of CVA in May 2024 for which she was treated at [facility] 4. History of DVT in left leg patient was started on Eliquis 5. History of UTI with sepsis and positive blood cultures 6. History of diabetes mellitus type 2 7. History of essential hypertension 8. History of hyperlipidemia DVT prophylaxis Eliquis. GI prophylax Protonix Urology and infectious disease services consulted Patient maintained on IV Zosyn Repeat labs ordered
[2024-08-10] MEDS: OLANZapine 10 MG VIAL IM PRN (12:15)
[2024-08-10 12:32] LABS: Glucose,Whole Blood 87 mg/dL (70-110)
--- NOTE | 2024-08-10 13:13 | P.PN ---
Subjective Progress Note Date: 08/10/24 Principal diagnosis: Reason for follow-up is penile abscess Patient is a 83-year-old male with a past medical history significant for diabetes mellitus hyperlipidemia hypertension COPD recently admitted to hospital with dislodged Larsen catheter leading to penile abscess status post surgical drainage of the abscess culture positive for Pseudomonas aeruginosa Klebsiella Evelin and anaerobes patient currently admitted to hospital because of pulling out his suprapubic catheter which has been placed back by urology. On today's evaluation that is 08/10/2024, the patient continues to be afebrile, the patient is on room air and breathing comfortably, the Pt sleepy but arousable no concern elicited at the bedside no vomiting or diarrhea has been reported. No new lab has been obtained today Objective - Vital Signs Vital signs: Vital Signs Temp 98.2 F 08/09/24 15:00 Pulse 73 08/10/24 01:56 Resp 17 08/10/24 01:56 BP 151/70 08/10/24 01:56 Pulse Ox 97 08/10/24 01:56 FiO2 Intake & Output 08/09/24 08/10/24 08/10/24 18:59 06:59 18:59 Intake Total 1187 Output Total 450 1200 Balance 737 -1200 Intake: Oral 1187 Output: Urine 450 1200 Other: Voiding Method Indwelling Catheter Indwelling Catheter Indwelling Catheter # Bowel Movements 2 - Exam GENERAL DESCRIPTION: An elderly male lying in bed in no distress RESPIRATORY SYSTEM: Unlabored breathing , decreased breath sounds at bases HEART: S1 S2 regular rate and rhythm , ABDOMEN: Soft , no tenderness EXTREMITIES: No edema feet - Labs CBC & Chem 7: 08/08/24 07:40 08/08/24 07:40 Labs: Abnormal Lab Results - Last 24 Hours (Table) 08/09/24 08/09/24 Range/Units 18:08 20:26 POC Glucose (mg/dL) 440 H 270 H (70-110) mg/dL Assessment and Plan (1) Penile abscess Current Visit: No Status: Acute Code(s): N48.21 - ABSCESS OF CORPUS CAVERNO SUM AND PENIS SNOMED Code(s): 83493610 Plan: 1patient with recent admission to the hospital with penile abscess in this patient was status post drainage of the abscess culture positive for multiple pathogen including Pseudomonas and he also have a suprapubic catheter now presenting back after his suprapubic catheter which has been replaced this morning by urology. 2patient local wound care with dry Aquacel dressing change q. 48-hour discussed with the nursing staff. 3patient will be continued on Zosyn and Diflucan for his underlying abscess and monitor clinical course closely Dictation was produced using [employer] dictation software. please excuse any grammatical, word or spelling errors. Time with Patient: Less than 30
--- NOTE | 2024-08-10 13:39 | P.PN ---
Progress Note - Text Progress Note Date: 08/10/24 IDENTIFYING DATA: Patient is an 83-year-old male, retired REASON FOR CONSULT: Agitation INTERVAL HISTORY: Patient seen and evaluated. Sitter present at bedside. He had received as needed IM Zyprexa just prior to arrival and was somnolent and unable to provide any meaningful conversation at this time. Patient reportedly was pulling at his IV lines, agitated with as needed Zyprexa effective for these behaviors. Patient did receive Zyprexa Zydis overnight. Will continue at current dose for now. MENTAL STATUS EXAM: General Appearance: Patient appears to be stated age. Patient appears to have fair hygiene and grooming wearing hospital gown with poor eye contact. Behavior: Patient is calmly lying in bed without any agitated behavior. He was sleep. Suicidality/Homicidality: Unable to elicit Perceptions: Unable to elicit Judgment and insight: Poor IMPRESSIONS: Delirium Unspecified neurocognitive disorder, likely related to recent CVA PLAN: -At this time patient DOES NOT meet criteria for inpatient psychiatric admission. -Delirium precautions recommended with patient including - avoiding use of narcotics and BOX TURNER sedatives, limit anticholinergic medications when possible, frequent re-orientation, minimize use of restraints, open window shades during the day and close them at night -Would recommend the following medication changes/additions: Continue Zyprexa Zydis 5 mg at bedtime and Zyprexa IM 5 mg twice daily for acute safety concerns. Recommend possibly increasing Zyprexa Zydis in the upcoming days if patient continues to exhibit agitation however will continue at this dose tonight -Continue 1:1 sitter for safety -Will continue to follow along -Please contact with any questions.
[2024-08-10 17:11] LABS: Glucose,Whole Blood 90 mg/dL (70-110)
[2024-08-10] MEDS: AMOXIC-POT CLAV 500-125 MG 1 EACH TAB PO SCH (20:38)
[2024-08-10 20:57] LABS: Glucose,Whole Blood 270 mg/dL (70-110)
[2024-08-11 07:43] LABS: Basophils % (A) 1 %; Eosinophils # (A) 0.3 k/uL (0-0.7); Eosinophils % (A) 5 %; HCT 31.8 % (39.0-53.0); HGB 9.9 gm/dL (13.0-17.5); Hypochromasia Marked; Lymphocytes # (A) 1.9 k/uL (1.0-4.8); Lymphocytes % (A) 30 %; MCH 29.4 pg (25.0-35.0); MCV 94.9 fL (80.0-100.0); Mean Platelet Volume 7.5; Monocytes # (A) 0.7 k/uL (0-1.0); Monocytes % (A) 11 %; Neutrophils # (A) 3.2 k/uL (1.3-7.7); Neutrophils % (A) 51 %; Platelet Count 403 k/uL (150-450); RBC 3.35 m/uL (4.30-5.90); RDW 15.9 % (11.5-15.5); WBC 6.2 k/uL (3.8-10.6)
[2024-08-11 08:18] LABS: ALT 16 U/L (4-49); AST 30 U/L (17-59); African American GFR (CKD) >90 (>60 ml/min/1.73 sqM); Albumin 2.6 g/dL (3.5-5.0); Albumin/Globulin Ratio 0.7; Alkaline Phosphatase 79 U/L (38-126); Anion Gap 9 mmol/L; Blood Urea Nitrogen 20 mg/dL (9-20); Calcium 8.3 mg/dL (8.4-10.2); Carbon Dioxide 26 mmol/L (22-30); Chloride 100 mmol/L (98-107); Globulin 3.5 g/dL; Glucose 320 mg/dL (74-99); Non-African American GFR(CKD) 79 (>60 ml/min/1.73 sqM); Potassium 4.4 mmol/L (3.5-5.1); Sodium 135 mmol/L (137-145); Total Bilirubin 0.3 mg/dL (0.2-1.3); Total Protein 6.1 g/dL (6.3-8.2)
[2024-08-11 08:27] LABS: Glucose,Whole Blood 318 mg/dL (70-110)
--- NOTE | 2024-08-11 11:36 | P.PN ---
Subjective Progress Note Date: 08/11/24 Principal diagnosis: Reason for follow-up is penile abscess Patient is a 83-year-old male with a past medical history significant for diabetes mellitus hyperlipidemia hypertension COPD recently admitted to hospital with dislodged Larsen catheter leading to penile abscess status post surgical drainage of the abscess culture positive for Pseudomonas aeruginosa Klebsiella Evelin and anaerobes patient currently admitted to hospital because of pulling out his suprapubic catheter which has been placed back by urology. On today's evaluation that is 08/11/2024, patient did not have any fever and patient is breathing comfortably on room air, patient sleepy but arousable not a very good historian no vomiting or diarrhea reported by the sitter at the bedside. The patient white count 6.2, creatinine 0.91 Objective - Vital Signs Vital signs: Vital Signs Temp 97.9 F 08/11/24 08:25 Pulse 76 08/11/24 08:25 Resp 17 08/11/24 08:25 BP 138/70 08/11/24 08:25 Pulse Ox 88 L 08/11/24 08:25 FiO2 Intake & Output 08/10/24 08/11/24 08/11/24 18:59 06:59 18:59 Intake Total 780 118 Output Total 440 850 Balance 340 -850 118 Intake: Oral 780 118 Output: Urine 440 850 Other: Voiding Method Indwelling Catheter Indwelling Catheter Indwelling Catheter - Exam GENERAL DESCRIPTION: An elderly male lying in bed in no distress RESPIRATORY SYSTEM: Unlabored breathing , decreased breath sounds at bases HEART: S1 S2 regular rate and rhythm , ABDOMEN: Soft , no tenderness EXTREMITIES: No edema feet - Labs CBC & Chem 7: 08/11/24 07:11 08/11/24 07:11 Labs: Abnormal Lab Results - Last 24 Hours (Table) 08/10/24 08/11/24 08/11/24 Range/Units 20:55 07:11 07:11 RBC 3.35 L (4.30-5.90) m/uL Hgb 9.9 L (13.0-17.5) gm/dL Hct 31.8 L (39.0-53.0) % RDW 15.9 H (11.5-15.5) % Sodium 135 L (137-145) mmol/L Glucose 320 H (74-99) mg/dL POC Glucose (mg/dL) 270 H (70-110) mg/dL Calcium 8.3 L (8.4-10.2) mg/dL Total Protein 6.1 L (6.3-8.2) g/dL Albumin 2.6 L (3.5-5.0) g/dL 08/11/24 Range/Units 08:23 RBC (4.30-5.90) m/uL Hgb (13.0-17.5) gm/dL Hct (39.0-53.0) % RDW (11.5-15.5) % Sodium (137-145) mmol/L Glucose (74-99) mg/dL POC Glucose (mg/dL) 318 H (70-110) mg/dL Calcium (8.4-10.2) mg/dL Total Protein (6.3-8.2) g/dL Albumin (3.5-5.0) g/dL Assessment and Plan (1) Penile abscess Current Visit: No Status: Acute Code(s): N48.21 - ABSCESS OF CORPUS CAVERNOSUM AND PENIS SNOMED Code(s): 75366506 Plan: 1patient with recent admission to the hospital with penile abscess in this patient was status post drainage of the abscess culture positive for multiple pathogen including Pseudomonas and he also have a suprapubic catheter now presenting back after his suprapubic catheter which has been replaced this morning by urology. 2patient local wound care with dry Aquacel dressing change q. 48-hour. 3patient currently being treated with Zosyn and Diflucan for his underlying abscess and continue with supportive care Dictation was produced using [employer] dictation software. please excuse any grammatical, word or spelling errors. Time with Patient: Less than 30
--- NOTE | 2024-08-11 12:15 | P.DS ---
Providers Date of admission: 08/07/24 02:16 Expected date of discharge: 08/11/24 Attending physician: Steve Murguia Consults: 08/07/24 02:14 Consult Physician Routine Consulting Provider: Srinivas Rivera Consult Reason/Comments: Displaced suprapubic catheter Do you want consulting provider notified?: Already Contacted 08/07/24 12:27 Consult Physician Routine Consulting Provider: Sorin Moody Consult Reason/Comments: zosyn, sepsis Do you want consulting provider notified?: Yes 08/08/24 14:36 Consult Physician Routine Consulting Provider: Psychiatry - [facility] Psychiatry Consult Reason/Comments: agitation Do you want consulting provider notified?: Yes Primary care physician: Steve Shantal [facility] Course: Diagnosis on discharge: 1. Dislodged suprapubic catheter 2. Recent history of periurethral abscess with drainage and suprapubic catheter placement. Patient was discharged on IV Zosyn 3. History of CVA in May 2024 for which she was treated at [facility] 4. History of DVT in left leg patient was started on Eliquis 5. History of UTI with sepsis and positive blood cultures 6. History of diabetes mellitus type 2 7. History of essential hypertension 8. History of hyperlipidemia 9. Psychosis with severe agitation patient was seen by psychiatry and was started on Zyprexa. Hospital course: Bill Salter is an 83-year-old male patient who presented to the ER with concerns of urinary retention after pulling out his suprapubic catheter. Patient was recently here and discharged and was treated for acute groin cellulitis and penile abscess and when she went an I&D and received a suprapubic catheter. Patient was discharged on IV antibiotic Zosyn to home. 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 Lab work completed showing white blood cell 6.8, hemoglobin 9.1. At this time patient will be admitted urology services have been consulted patient restarted back on IV Zosyn On 08/08/2024 patient was seen and examined on the medical floor he is alert, confused in no apparent distress he is calm at this time however he is having episodes of agitation, he is maintained on Seroquel and received 1 dose of Haldol IM last night, he is denying any complaints at this time there is no chest pain no shortness of breath no fever or chills no cough no nausea or vomiting no diarrhea, and no urinary symptoms, he has suprapubic catheter inserted, consultation for psychiatry was requested, will continue to follow closely 08/09/2024 patient was seen and examined on the medical floor, he is alert confused in no apparent distress, last night he had episodes of agitation, he is refusing to take his pills including Seroquel, he required IM Haldol at night, otherwise he denies any complaints there is no fever or chills no headache or dizziness no chest pain, no shortness of breath no nausea or vomiting no abdominal pain no diarrhea and no urinary symptoms, he has suprapubic catheter in. Psychiatry consultation has been requested due to severe agitation, will continue to follow closely. On 08/10/2024 patient remains confused and agitated. Sitter at bedside. Psych consulted digestive medication to Zyprexa added. Patient denies chest pain or shortness breath. Patient denies nausea vomiting or diarrhea. Patient denies any urinary burning or frequency. current vital signs temp 98.2, heart rate 71, respiratory rate 16, blood pressure 131/62 with pulse ox 96% on room air On 08/11/2024 patient was seen and examined on the medical floor he is alert, responsive confused in no apparent distress, earlier this morning he was agitated, he was given Zyprexa 5 mg IM by the nurse, he was receiving Zyprexa 5 mg at bedtime, still having episodes of agitation. At this time will change Zyprexa to 2.5 mg p.o. twice daily and 5 mg at bedtime. Per family request patient will be discharged to home with hospice, will arrange for transfer via EMS, continue Augmentin 500 mg twice daily for 10 days and Diflucan 100 mg once daily for 15 days. Patient Condition at Discharge: Stable Plan - Discharge Summary New Discharge Prescriptions: New Amoxic-Pot Clav 500-125 mg [Augmentin 500-125 mg] 1 each PO BID 10 Days #20 tab Pantoprazole [Protonix] 40 mg PO AC-BRKFST 30 Days #30 tab OLANZapine ODT [ZyPREXA Zydis] 5 mg PO HS 30 Days #30 tab OLANZapine [ZyPREXA] 2.5 mg PO BID 30 Days #60 tab Continue Midodrine HCl [ProAmantine] 2.5 mg PO TID-W/MEALS Levothyroxine Sodium [Synthroid] 125 mcg PO SUTUWEFRSA Atorvastatin [Lipitor] 80 mg PO HS Apixaban [Eliquis] 5 mg PO BID tab Acetaminophen-Codeine 300-30mg [Tylenol w/codeine #3] 1 tab PO Q4HR PRN PRN Reason: Moderate Pain (Scale 4 To 6) Nystatin 100,000 Unit/gm Powd [Mycostatin Powder] 1 applic TOPICAL TID 10 Days #250 each Melatonin 3 mg PO HS Levothyroxine Sodium [Synthroid] 150 mcg PO MOTH Latanoprost [Latanoprost 0.005%] 1 drop BOTH EYES HS INSULIN LISPRO (HumaLOG) [humaLOG] See Protocol SQ ACHS Docusate [Colace] 100 mg PO Q12H Aspirin 81 mg PO DAILY Insulin Detemir (Levemir) [Levemir] 20 unit SQ HS #0 each Fluconazole [Diflucan] 100 mg PO DAILY 15 Days #15 tab Discontinued QUEtiapine [SEROquel] 50 mg PO HS 30 Days #30 tab Piperacillin-Tazobactam [Zosyn] 3.375 gm IVPB Q8HR 10 Days #0 each Discharge Medication List Aspirin 81 mg PO DAILY 07/16/24 [History] Atorvastatin [Lipitor] 80 mg PO HS 07/16/24 [History] Docusate [Colace] 100 mg PO Q12H 07/16/24 [History] INSULIN LISPRO (HumaLOG) [humaLOG] See Protocol SQ ACHS 07/16/24 [History] Latanoprost [Latanoprost 0.005%] 1 drop BOTH EYES HS 07/16/24 [History] Levothyroxine Sodium [Synthroid] 125 mcg PO SUTUWEFRSA 07/16/24 [History] Levothyroxine Sodium [Synthroid] 150 mcg PO MOTH 07/16/24 [History] Melatonin 3 mg PO HS 07/16/24 [History] Midodrine HCl [ProAmantine] 2.5 mg PO TID-W/MEALS 07/16/24 [History] Apixaban [Eliquis] 5 mg PO BID tab 07/19/24 [Rx] Acetaminophen-Codeine 300-30mg [Tylenol w/codeine #3] 1 tab PO Q4HR PRN 07/25/24 [History] Insulin Detemir (Levemir) [Levemir] 20 unit SQ HS #0 each 08/03/24 [Rx] Nystatin 100,000 Unit/gm Powd [Mycostatin Powder] 1 applic TOPICAL TID 10 Days #250 each 08/03/24 [Rx] Amoxic-Pot Clav 500-125 mg [Augmentin 500-125 mg] 1 each PO BID 10 Days #20 tab 08/11/24 [Rx] Fluconazole [Diflucan] 100 mg PO DAILY 15 Days #15 tab 08/11/24 [Rx] OLANZapine ODT [ZyPREXA Zydis] 5 mg PO HS 30 Days #30 tab 08/11/24 [Rx] OLANZapine [ZyPREXA] 2.5 mg PO BID 30 Days #60 tab 08/11/24 [Rx] Pantoprazole [Protonix] 40 mg PO AC-BRKFST 30 Days #30 tab 08/11/24 [Rx] Follow up Appointment(s)/Referral(s): [facility] [NON-STAFF] - As Needed Steve Murguia MD [Primary Care Provider] - 1-2 days Srinivas Rivera MD [STAFF PHYSICIAN] - 1 Week Patient Instructions/Handouts: Urinary Retention in Men (ED)
[2024-08-11 12:23] LABS: Glucose,Whole Blood 251 mg/dL (70-110)
[2024-08-11 17:18] LABS: Glucose,Whole Blood 366 mg/dL (70-110)
[2024-08-11] MEDS: OLANZapine 2.5 MG TAB PO SCH (19:54)
[2024-08-11 20:19] LABS: Glucose,Whole Blood 324 mg/dL (70-110)
[2024-08-12 01:48] VITALS: RESP 18
[2024-08-12 05:38] LABS: Glucose,Whole Blood 154 mg/dL (70-110)
--- NOTE | 2024-08-12 10:40 | P.PN ---
Subjective Progress Note Date: 08/12/24 Bill Salter is an 83-year-old male patient who presented to the ER with concerns of urinary retention after pulling out his suprapubic catheter. Patient was recently here and discharged and was treated for acute groin cellulitis and penile abscess and when she went an I&D and received a suprapubic catheter. Patient was discharged on IV antibiotic Zosyn to home. 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 Lab work completed showing white blood cell 6.8, hemoglobin 9.1. At this time patient will be admitted urology services have been consulted patient restarted back on IV Zosyn On 08/08/2024 patient was seen and examined on the medical floor he is alert, confused in no apparent distress he is calm at this time however he is having episodes of agitation, he is maintained on Seroquel and received 1 dose of Haldol IM last night, he is denying any complaints at this time there is no ch est pain no shortness of breath no fever or chills no cough no nausea or vomiting no diarrhea, and no urinary symptoms, he has suprapubic catheter inserted, consultation for psychiatry was requested, will continue to follow closely 08/09/2024 patient was seen and examined on the medical floor, he is alert confused in no apparent distress, last night he had episodes of agitation, he is refusing to take his pills including Seroquel, he required IM Haldol at night, otherwise he denies any complaints there is no fever or chills no headache or dizziness no chest pain, no shortness of breath no nausea or vomiting no abdominal pain no diarrhea and no urinary symptoms, he has suprapubic catheter in. Psychiatry consultation has been requested due to severe agitation, will continue to follow closely. On 08/10/2024 patient remains confused and agitated. Sitter at bedside. Psych consulted digestive medication to Zyprexa added. Patient denies chest pain or shortness breath. Patient denies nausea vomiting or diarrhea. Patient denies any urinary burning or frequency. current vital signs temp 98.2, heart rate 71, respiratory rate 16, blood pressure 131/62 with pulse ox 96% on room air On 08/11/2024 patient was seen and examined on the medical floor he is alert, responsive confused in no apparent distress, earlier this morning he was agitated, he was given Zyprexa 5 mg IM by the nurse, he was receiving Zyprexa 5 mg at bedtime, still having episodes of agitation. At this time will change Zyprexa to 2.5 mg p.o. twice daily and 5 mg at bedtime. Per family request patient will be discharged to home with hospice, will arrange for transfer via EMS, continue Augmentin 500 mg twice daily for 10 days and Diflucan 100 mg once daily for 15 days. On 08/12/2024 patient is resting comfortably in bed patient will be DC'd home with hospice care today. No changes to medication Objective - Vital Signs Vital signs: Vital Signs Temp 98.1 F 08/12/24 01:10 Pulse 81 08/12/24 01:10 Resp 18 08/12/24 01:10 BP 139/63 08/12/24 01:10 Pulse Ox 94 L 08/12/24 01:10 FiO2 Intake & Output 08/11/24 08/12/24 08/12/24 18:59 06:59 18:59 Intake Total 118 Output Total 700 1000 Balance -582 -1000 Intake: Oral 118 Output: Urine 700 1000 Other: Voiding Method Indwelling Catheter Indwelling Catheter - Exam Head normocephalic Neck supple Lungs clear to auscultation bilaterally no wheezing or crackles Heart regular rate and rhythm S1-S2, no rub or gallop Abdomen is soft nontender nondistended positive bowel sounds no hepatosple nomegaly Extremities no edema Neuro alert and orientated to 1. Intermittent confusion - Labs CBC & Chem 7: 08/11/24 07:11 08/11/24 07:11 Labs: Abnormal Lab Results - Last 24 Hours (Table) 08/11/24 08/11/24 08/11/24 Range/Units 12:21 17:16 20:04 POC Glucose (mg/dL) 251 H 366 H 324 H (70-110) mg/dL 08/12/24 Range/Units 05:36 POC Glucose (mg/dL) 154 H (70-110) mg/dL Assessment and Plan Assessment: 1. Dislodged suprapubic catheter 2. Recent history of periurethral abscess with drainage and suprapubic catheter placement. Patient was discharged on IV Zosyn 3. History of CVA in May 2024 for which she was treated at [facility] 4. History of DVT in left leg patient was started on Eliquis 5. History of UTI with sepsis and positive blood cultures 6. History of diabetes mellitus type 2 7. History of essential hypertension 8. History of hyperlipidemia 9. Psychosis with severe agitation patient was seen by psychiatry and was star ciro on Zyprexa.
[2024-08-12 11:24] VITALS: BP 137/66; PULSE 82; TEMP 98.2
[2024-08-12 13:05] LABS: Glucose,Whole Blood 281 mg/dL (70-110)
--- NOTE | 2024-08-12 16:30 | P.PN ---
Subjective Progress Note Date: 08/12/24 Principal diagnosis: Reason for follow-up is penile abscess Patient is a 83-year-old male with a past medical history significant for diabetes mellitus hyperlipidemia hypertension COPD recently admitted to hospital with dislodged Larsen catheter leading to penile abscess status post surgical drainage of the abscess culture positive for Pseudomonas aeruginosa Klebsiella Evelin and anaerobes patient currently admitted to hospital because of pulling out his suprapubic catheter which has been placed back by urology. On today's evaluation that is 08/12/2024, Patient is afebrile patient is currently on room air and more awake and alert today, the patient denies having any shortness of breath, the patient denies any chest pain or cough, the patient denies any nausea vomiting did not have any abdominal pain and no diarrhea. No new lab has been obtained today Objective - Vital Signs Vital signs: Vital Signs Temp 98.2 F 08/12/24 11:23 Pulse 82 08/12/24 11:23 Resp 18 08/12/24 01:10 BP 137/66 08/12/24 11:23 Pulse Ox 94 L 08/12/24 11:23 FiO2 Intake & Output 08/11/24 08/12/24 08/12/24 18:59 06:59 18:59 Intake Total 118 Output Total 700 1000 400 Balance -582 -1000 -400 Intake: Oral 118 Output: Urine 700 1000 400 Other: Voiding Method Indwelling Catheter Indwelling Catheter - Exam GENERAL DESCRIPTION: An elderly male lying in bed in no distress RESPIRATORY SYSTEM: Unlabored breathing , decreased breath sounds at bases HEART: S1 S2 regular rate and rhythm , ABDOMEN: Soft , no tenderness EXTREMITIES: No edema feet - Labs CBC & Chem 7: 08/11/24 07:11 08/11/24 07:11 Labs: Abnormal Lab Results - Last 24 Hours (Table) 08/11/24 08/11/24 08/12/24 Range/Units 17:16 20:04 05:36 POC Glucose (mg/dL) 366 H 324 H 154 H (70-110) mg/dL 08/12/24 Range/Units 13:03 POC Glucose (mg/dL) 281 H (70-110) mg/dL Assessment and Plan (1) Penile abscess Status: Acute Code(s): N48.21 - ABSCESS OF CORPUS CAVERNOSUM AND PENIS SNOMED Code(s): 36122344 Plan: 1patient with recent admission to the hospital with penile abscess in this patient was status post drainage of the abscess culture positive for multiple pathogen including Pseudomonas and he also have a suprapubic catheter now presenting back after his suprapubic catheter which has been replaced this morning by urology. 2patient local wound care with dry Aquacel dressing change q. 48-hour. 3patient currently being treated with Zosyn and Diflucan for his underlying abscess however possible plan is for hospice which may be appropriate in that case antibiotics can be safely discontinued Dictation was produced using [employer]goation software. please excuse any grammatical, word or spelling errors.
== END 2024-08-12 16:28 | disposition hospice, home (50) ==
LOC: EC 22:58 → 6NMEDSUR 08-07 02:16
PROVIDERS: ADMIT Internal Medicine; ATTEND Internal Medicine
DX: T83.028A Displacement of other urinary catheter, initial encounter (principal); Y73.1 Therapeutic (nonsurgical) and rehabilitative gastroenterology and urology devices associated with adverse incidents; R33.9 Retention of urine, unspecified; N36.0 Urethral fistula; N48.21 Abscess of corpus cavernosum and penis; R41.0 Disorientation, unspecified; J44.9 Chronic obstructive pulmonary disease, unspecified; E11.9 Type 2 diabetes mellitus without complications; I10 Essential (primary) hypertension; E78.5 Hyperlipidemia, unspecified; Z86.718 Personal history of other venous thrombosis and embolism; Z86.73 Personal history of transient ischemic attack (TIA), and cerebral infarction without residual deficits; Z87.891 Personal history of nicotine dependence; Z79.01 Long term (current) use of anticoagulants; Z79.4 Long term (current) use of insulin; Z79.82 Long term (current) use of aspirin; Z79.890 Hormone replacement therapy; Z79.899 Other long term (current) drug therapy
CPT/HCPCS: 51040; 96365 ×2; 96366 ×4; 96372 ×6; 96375; 99285; 51798; 86900; 86901; 80053 ×2; 85025 ×3; 86850; 81001; G0378 ×6; J2543 ×3; J2250; J2060; J1630 ×3; J2003; J2704; 96374